=== PATIENT | female | born 1955 | race Caucasian/White ===

== ENCOUNTER → 2017-12-14 13:28 | Outpatient (CLI) | payer BC, SELFPAY ==
[2017-12-14 15:24] LABS: Absolute Lymphocyte Count 1.65 X10^3/ul (0.83-4.51); Basophil# 0.06 X10^3/uL; Basophil% 0.9 % (0-1); Eosinophil# 0.12 X10^3/uL; Eosinophils% 1.9 % (0-5); Hematocrit 40.9 % (37-47); Hemoglobin 12.8 g/dl (12.0-15.0); Lymphocyte # 1.65 X10^3/ul (4.0); Mean Corp Hgb Conc 31.3 g/gl (32-36); Mean Corpuscular Hgb 28.3 pg (27.0-32.0); Mean Corpuscular Volume 90.3 fL (81-99); Mean Platelet Vol. 10.2 fl (6.2-12.0); Monocyte% 7.9 % (0-10); Neutrophil # 4.01 X10^3/uL (2.7-7.7); Neutrophil % 63.1 % (47-70); Platelet Count 329 K/mm3 (150-450); RBC Distribution Width CV 13.2 % (11.6-14.6); RBC Distribution Width SD 43.5 fl (35.1-43.9); Red Blood Count 4.53 M/mm3 (4.2-5.4); White Blood Count 6.4 K/mm3 (4.4-11.0)
[2017-12-14 15:25] LABS: POSITIVE COUNT NO; POSITIVE DIFFERENTIAL NO; POSITIVE MORPHOLOGY NO
[2017-12-14 15:30] LABS: Anion Gap 6 (5-15); BUN 11 mg/dL (7-18); BUN/Creat Ratio 15.1 RATIO (10-20); Calcium,Total 9.1 mg/dL (8.5-10.1); Chloride 101 mmol/L (98-107); Creatinine, Serum 0.73 mg/dL (0.55-1.02); EST Glomerular Filtration Rate 86 mL/min (>60); Est Glom Filt Rate - Afr Amer 105 mL/min (>60); Glucose 87 mg/dL (74-106); Potassium 4.1 mmol/L (3.5-5.1); Sodium Level 138 mmol/L (136-145)
== END ==
PROVIDERS: Family Provider Family Medicine Geriatric Medicine; PCP Family Medicine Geriatric Medicine; Visit Provider Family Medicine Geriatric Medicine
DX: R53.83 Other fatigue (principal)
CPT/HCPCS: 36415; 80048; 85025

== ENCOUNTER → 2017-12-15 12:32 | Outpatient (CLI) | payer BC, SELFPAY ==
[2017-12-15 13:54] LABS: Cholesterol 243 mg/dL (200); High Density Lipoprotein 65 mg/dL; Thyroid Stim Hormone (TSH) 1.48 uIU/mL (0.358-3.74); Triglycerides 107 mg/dL; Uric Acid 5.1 mg/dL (2.6-6.0); Very Low Density Lipoprotein 21 mg/dL (5-40); Vitamin D,25 Hydroxy 60.2 ng/mL (29.95-100.01)
[2017-12-16 08:59] LABS: Hep C Antibodies <0.1 s/co ratio (0.0-0.9)
== END ==
PROVIDERS: Family Provider Family Medicine Geriatric Medicine; PCP Family Medicine Geriatric Medicine; Visit Provider Family Medicine Geriatric Medicine
DX: Z13.89 Encounter for screening for other disorder (principal); E55.9 Vitamin D deficiency, unspecified; R53.83 Other fatigue; M10.9 Gout, unspecified
CPT/HCPCS: 36415; 80061; 82306; 84443; 84550; 86803

== ENCOUNTER → 2018-01-18 13:58 | Outpatient (CLI) | payer BC, SELFPAY ==
--- NOTE | 2018-01-18 14:00 | RAD_ITS ---
STUDY: X-RAY - LUMBAR SPINE REASON FOR EXAM: Female, 62 years old. Low back pain TECHNIQUE: 3 view(s) of the lumbar spine were obtained. COMPARISON: 06/17/2014 FINDINGS: Normal lumbar lordosis. There is no substantial scoliosis. Grade 1 anterolisthesis of L5 on S1 with probable chronic pars defects. There is multilevel endplate spondylosis of the lumbar vertebrae. There is multi-level degenerative disc disease with multi-level disc space narrowing. There is no demonstrated fracture. The soft tissue structures are unremarkable. RAD/Lumbar Spine 2 or 3 Views IMPRESSION: Degenerative changes of the spine, as detailed above. Electronically Signed: Jacinto Hong DO at 13:45 EDT Tel , Service support ,
[2018-01-18 15:39] LABS: Anion Gap 8 (5-15); BUN 13 mg/dL (7-18); BUN/Creat Ratio 15.3 RATIO (10-20); Calcium,Total 9.1 mg/dL (8.5-10.1); Chloride 101 mmol/L (98-107); Creatinine, Serum 0.85 mg/dL (0.55-1.02); EST Glomerular Filtration Rate 72 mL/min (>60); Est Glom Filt Rate - Afr Amer 87 mL/min (>60); Glucose 89 mg/dL (74-106); Potassium 3.8 mmol/L (3.5-5.1); Sodium Level 138 mmol/L (136-145)
== END ==
PROVIDERS: Family Provider Family Medicine Geriatric Medicine; PCP Family Medicine Geriatric Medicine; Visit Provider Family Medicine Geriatric Medicine
DX: M54.5 Low back pain (principal); E87.6 Hypokalemia
CPT/HCPCS: 36415; 72100; 80048

== ENCOUNTER → 2018-02-05 16:51 | Outpatient (CLI) | payer BC, SELFPAY | PROVIDERS: Family Provider Family Medicine Geriatric Medicine; PCP Family Medicine Geriatric Medicine; Visit Provider Chiropractor | DX: M43.10 Spondylolisthesis, site unspecified (principal); M51.36 Other intervertebral disc degeneration, lumbar region | CPT/HCPCS: 72052; 72110 ==

== ENCOUNTER → 2018-02-09 07:14 | Outpatient (CLI) | payer BC, SELFPAY ==
--- NOTE | 2018-02-09 07:45 | MRI_ITS ---
STUDY: MRI LUMBAR SPINE WITHOUT CONTRAST REASON FOR EXAM: Female, 62 years old. Low back pain with bilateral leg weakness since beginning of January. TECHNIQUE: Standardized fat and water weighted pulse sequences were obtained in the sagittal and axial planes. COMPARISON: Radiographs of the lumbar spine dated January 18, 2018. FINDINGS: T11-T12: There is narrowing of the disc. There may be a broad central disc protrusion. There is thickening of ligamentum flavum which appears to contribute to moderate acquired canal stenosis and possible impingement of the spinal cord at this level. Neural foramina appear to be patent. T12-L1: There is narrowing of the disc. The neural foramina are patent. There is no significant central acquired canal stenosis. Normal lumbar lordosis. There is no substantial scoliosis. Normal conus medullaris that terminates at the L1-2 level. L1-2: Normal endplates. Normal disc height, signal and morphology. Normal bilateral facet joints. Normal central canal and bilateral lateral recesses. Normal bilateral intervertebral neural foramina. There is abnormal T1 and T2 hyperintensity within the L1 and L2 vertebral bodies that suppresses on the STIR images suggesting this probably represents some fatty infiltration of the marrow. L2-3: There is mild annular disk bulge and osteophyte complex. There is mild degenerative arthropathy of the facet joints. Bilateral neuroforamina are narrowed without MR evidence for nerve impingement. There is no significant central canal stenosis. L3-4: There is mild annular disk bulge and osteophyte complex. There is mild degenerative arthropathy of the facet joints. Bilateral neuroforamina are narrowed without MR evidence for nerve impingement. There is no significant central canal stenosis. L4-5: There is mild annular disk bulge and osteophyte complex. There is mild degenerative arthropathy of the facet joints. Bilateral neuroforamina are narrowed without MR evidence for nerve impingement. There is no significant central canal stenosis. L5-S1: There is a grade 1 anterolisthesis at this level with uncovering of the disc. There are severe degenerative arthropathy of facet joints. Neural foramina are bilaterally narrowed with potential impingement of the right L5 nerve root at the neural foramen. There is mild central acquired canal stenosis. There is a increased signal within the sacrum that probably represents fatty infiltration of the marrow.. There is abnormal T1 and T2 hyperintensity within the L2, L3, L4 and L5 vertebral bodies that suppresses with fat suppression suggesting fatty infiltration of the marrow. Normal visualized paraspinous soft tissue structures. MRI/Spine Lumbar (Routine) IMPRESSION: 1. Multilevel degenerative disc disease and degenerative arthropathy of the lumbar spine with acquired canal stenosis, neural foraminal narrowing and potential nerve impingement, as described. 2. Multiple foci of abnormal signal within the vertebral bodies that probably represents fatty infiltration of the marrow. 3. Grade 1 anterolisthesis at L5-S1. Electronically Signed: Kenisha Mann MD at 8:31 EDT , Service support ,
== END ==
PROVIDERS: Family Provider Family Medicine Geriatric Medicine; PCP Family Medicine Geriatric Medicine; Visit Provider Family Medicine Geriatric Medicine
DX: M62.81 Muscle weakness (generalized) (principal)
CPT/HCPCS: 72148

== ENCOUNTER → 2018-04-03 09:55 | Outpatient (CLI) | payer BC, SELFPAY | LOC: LAB 09:57 → PSN 10:09 | PROVIDERS: Family Provider Family Medicine Geriatric Medicine; PCP Family Medicine Geriatric Medicine; Visit Provider Family Medicine Geriatric Medicine | DX: R68.83 Chills (without fever) (principal) | CPT/HCPCS: 87633 ==

== ENCOUNTER → 2018-05-04 14:27 | Outpatient (CLI) | payer BC, SELFPAY ==
--- NOTE | 2018-05-04 14:32 | RAD_ITS ---
STUDY: X-RAY - PELVIS REASON FOR EXAM: Female, 63 years old. Bilateral hip pain. No history of injury. TECHNIQUE: One view of the pelvis was obtained. COMPARISON: None. FINDINGS: There is a non-specific bowel gas pattern. There are multiple calcified phleboliths. Normal bilateral iliac wings, sacroiliac joints and visualized sacrum. Normal visualized bilateral superior and inferior pubic rami. Normal pubic symphysis. Normal ischial tuberosities. Normal visualized right femoral head. Normal right acetabulum. Normal right hip joint. Normal visualized left femoral head. Normal left acetabulum. Normal left hip joint. RAD/Pelvis 1 or 2 Views IMPRESSION: Unremarkable hip joint. Electronically Signed: Antonino Oreilly MD at 11:48 EDT Tel , Service support ,
[2018-05-04 15:43] LABS: Absolute Lymphocyte Count 1.73 X10^3/ul (0.83-4.51); Absolute Neutrophil Count 8.4 X10^3/uL (2.0-7.7); Basophil# 0.05 X10^3/uL; Basophil% 0.5 % (0-1); Eosinophil# 0.02 X10^3/uL; Eosinophils% 0.2 % (0-5); Hematocrit 40.1 % (37-47); Hemoglobin 12.8 g/dl (12.0-15.0); Lymphocyte # 1.73 X10^3/ul (4.0); Lymphocyte % 15.9 % (19-41); Mean Corp Hgb Conc 31.9 g/gl (32-36); Mean Corpuscular Volume 90.7 fL (81-99); Mean Platelet Vol. 9.9 fl (6.2-12.0); Monocyte# 0.75 X10^3/uL; Monocyte% 6.9 % (0-10); Neutrophil # 8.35 X10^3/uL (2.7-7.7); Neutrophil % 76.4 % (47-70); Platelet Count 374 K/mm3 (150-450); RBC Distribution Width CV 14.8 % (11.6-14.6); RBC Distribution Width SD 48.2 fl (35.1-43.9); Red Blood Count 4.42 M/mm3 (4.2-5.4); White Blood Count 10.9 K/mm3 (4.4-11.0)
[2018-05-04 15:46] LABS: POSITIVE COUNT NO; POSITIVE DIFFERENTIAL NO; POSITIVE MORPHOLOGY NO
[2018-05-04 16:08] LABS: ALB/GLOB Ratio 1.2 RATIO (0.9-2.4); AST(SGOT) 22 U/L (15-37); Alanine Aminotransfer ALT/SGPT 24 U/L (13-56); Albumin, Serum 3.8 g/dL (3.2-5.0); Alkaline Phosphatase 70 U/L (45-117); Anion Gap 7 (5-15); BUN 10 mg/dL (7-18); BUN/Creat Ratio 11.7 RATIO (10-20); CRP < 2.90 mg/L (0.0-3.0); Calcium,Total 8.6 mg/dL (8.5-10.1); Chloride 103 mmol/L (98-107); Creatinine, Serum 0.86 mg/dL (0.55-1.02); EST Glomerular Filtration Rate 71 mL/min (>60); Est Glom Filt Rate - Afr Amer 86 mL/min (>60); Globulin 3.1 g/dL (2.2-4.2); Glucose 83 mg/dL (74-106); Potassium 3.6 mmol/L (3.5-5.1); Protein, Total 6.9 g/dL (6.4-8.2); Rheumatoid Factor < 10.0 IU/mL (<15); Sodium Level 138 mmol/L (136-145)
[2018-05-04 17:05] LABS: Erythrocyte Sedimentation Rate 10 mm/hr (0-30)
[2018-05-10 17:07] LABS: CCP IgG Antibodies 6 units (0-19); HEPATITIS B SURFACE AG Negative (Negative); Hep B Surface Antibodies Non Reactive (.); Hep C Antibodies 0.1 s/co ratio (0.0-0.9)
[2018-05-17 17:12] LABS: HLA B27 Negative (.)
== END ==
PROVIDERS: Family Provider Family Medicine Geriatric Medicine; PCP Family Medicine Geriatric Medicine; Visit Provider Internal Medicine Rheumatology
DX: M06.4 Inflammatory polyarthropathy (principal); M15.9 Polyosteoarthritis, unspecified; M51.37 Other intervertebral disc degeneration, lumbosacral region; M48.061 Spinal stenosis, lumbar region without neurogenic claudication; M21.40 Flat foot [pes planus] (acquired), unspecified foot; G25.81 Restless legs syndrome; K22.70 Barrett's esophagus without dysplasia; F32.89 Other specified depressive episodes; I10 Essential (primary) hypertension; E03.9 Hypothyroidism, unspecified
CPT/HCPCS: 36415; 72170; 80053; 81374; 85025; 85652; 86140; 86200; 86431; 86706; 86803; 87340

== ENCOUNTER → 2018-06-06 13:55 | Outpatient (CLI) | payer BC, SELFPAY ==
[2018-06-06 15:07] LABS: Amphetamine Urine VISTA NEGATIVE (<1000 ng/mL); Barbiturate Urine VISTA NEGATIVE (< 200 ng/mL); Benzodiazepine Urine VISTA NEGATIVE (< 200 ng/mL); Cocaine Urine VISTA NEGATIVE (< 300 ng/mL); Ecstacy Urine VISTA NEGATIVE (< 500 ng/mL); Methadone Urine VISTA NEGATIVE (< 300 ng/mL); PCP Urine VISTA NEGATIVE (< 25 ng/mL); THC Urine VISTA NEGATIVE (< 50 ng/mL); Vista UDS pH Range 5
== END ==
PROVIDERS: Family Provider Family Medicine Geriatric Medicine; PCP Family Medicine Geriatric Medicine; Visit Provider Anesthesiology Pain Medicine
DX: F11.20 Opioid dependence, uncomplicated (principal)
CPT/HCPCS: 80307

== ENCOUNTER → 2018-06-22 09:02 | Outpatient (CLI) | payer BC, SELFPAY ==
[2018-06-22 12:11] LABS: Absolute Lymphocyte Count 1.66 X10^3/ul (0.83-4.51); Absolute Neutrophil Count 4.1 X10^3/uL (2.0-7.7); Basophil# 0.06 X10^3/uL; Basophil% 0.9 % (0-1); Eosinophil# 0.05 X10^3/uL; Eosinophils% 0.8 % (0-5); Hematocrit 40.9 % (37-47); Lymphocyte # 1.66 X10^3/ul (4.0); Lymphocyte % 25.3 % (19-41); Mean Corp Hgb Conc 31.8 g/gl (32-36); Mean Corpuscular Hgb 29.3 pg (27.0-32.0); Mean Corpuscular Volume 92.1 fL (81-99); Mean Platelet Vol. 9.5 fl (6.2-12.0); Monocyte# 0.71 X10^3/uL; Monocyte% 10.8 % (0-10); Neutrophil # 4.06 X10^3/uL (2.7-7.7); Platelet Count 355 K/mm3 (150-450); RBC Distribution Width CV 13.8 % (11.6-14.6); RBC Distribution Width SD 45.9 fl (35.1-43.9); Red Blood Count 4.44 M/mm3 (4.2-5.4); White Blood Count 6.6 K/mm3 (4.4-11.0)
[2018-06-22 12:16] LABS: POSITIVE COUNT NO; POSITIVE DIFFERENTIAL NO; POSITIVE MORPHOLOGY NO
[2018-06-22 12:46] LABS: Vitamin D,25 Hydroxy 28.9 ng/mL (29.95-100.01)
[2018-06-22 12:51] LABS: ALB/GLOB Ratio 1.1 RATIO (0.9-2.4); AST(SGOT) 20 U/L (15-37); Alanine Aminotransfer ALT/SGPT 29 U/L (13-56); Albumin, Serum 3.6 g/dL (3.2-5.0); Alkaline Phosphatase 68 U/L (45-117); Anion Gap 9 (5-15); BUN 12 mg/dL (7-18); BUN/Creat Ratio 14.8 RATIO (10-20); Calcium,Total 8.8 mg/dL (8.5-10.1); Chloride 102 mmol/L (98-107); Creatinine, Serum 0.81 mg/dL (0.55-1.02); EST Glomerular Filtration Rate 76 mL/min (>60); Est Glom Filt Rate - Afr Amer 92 mL/min (>60); Globulin 3.4 g/dL (2.2-4.2); Glucose 89 mg/dL (74-106); Potassium 3.9 mmol/L (3.5-5.1); Sodium Level 139 mmol/L (136-145); Thyroid Stim Hormone (TSH) 1.82 uIU/mL (0.358-3.74); Uric Acid 5.5 mg/dL (2.6-6.0)
== END ==
PROVIDERS: Family Provider Family Medicine Geriatric Medicine; PCP Family Medicine Geriatric Medicine; Visit Provider Family Medicine Geriatric Medicine
DX: M10.9 Gout, unspecified (principal); R53.83 Other fatigue; E55.9 Vitamin D deficiency, unspecified
CPT/HCPCS: 36415; 80053; 82306; 84443; 84550; 85025

== ENCOUNTER → 2018-07-20 15:04 | Outpatient (CLI) | payer BC, SELFPAY ==
[2018-07-20 17:38] LABS: Absolute Lymphocyte Count 1.77 X10^3/ul (0.83-4.51); Absolute Neutrophil Count 7.4 X10^3/uL (2.0-7.7); Basophil# 0.06 X10^3/uL; Basophil% 0.6 % (0-1); Eosinophil# 0.04 X10^3/uL; Eosinophils% 0.4 % (0-5); Hematocrit 41.7 % (37-47); Hemoglobin 13.4 g/dl (12.0-15.0); Lymphocyte # 1.77 X10^3/ul (4.0); Lymphocyte % 17.8 % (19-41); Mean Corp Hgb Conc 32.1 g/gl (32-36); Mean Corpuscular Hgb 29.6 pg (27.0-32.0); Mean Corpuscular Volume 92.1 fL (81-99); Mean Platelet Vol. 10.6 fl (6.2-12.0); Monocyte# 0.59 X10^3/uL; Monocyte% 5.9 % (0-10); Neutrophil # 7.44 X10^3/uL (2.7-7.7); Neutrophil % 75.1 % (47-70); Platelet Count 353 K/mm3 (150-450); RBC Distribution Width CV 14.5 % (11.6-14.6); RBC Distribution Width SD 47.3 fl (35.1-43.9); Red Blood Count 4.53 M/mm3 (4.2-5.4); White Blood Count 9.9 K/mm3 (4.4-11.0)
[2018-07-20 17:48] LABS: POSITIVE COUNT NO; POSITIVE DIFFERENTIAL NO; POSITIVE MORPHOLOGY NO
[2018-07-20 17:55] LABS: ALB/GLOB Ratio 1.1 RATIO (0.9-2.4); AST(SGOT) 16 U/L (15-37); Alanine Aminotransfer ALT/SGPT 28 U/L (13-56); Albumin, Serum 3.9 g/dL (3.2-5.0); Alkaline Phosphatase 71 U/L (45-117); Anion Gap 10 (5-15); BUN 15 mg/dL (7-18); BUN/Creat Ratio 17.8 RATIO (10-20); Calcium,Total 8.8 mg/dL (8.5-10.1); Chloride 103 mmol/L (98-107); Creatinine, Serum 0.84 mg/dL (0.55-1.02); EST Glomerular Filtration Rate 73 mL/min (>60); Est Glom Filt Rate - Afr Amer 88 mL/min (>60); Globulin 3.4 g/dL (2.2-4.2); Glucose 94 mg/dL (74-106); Potassium 3.5 mmol/L (3.5-5.1); Protein, Total 7.3 g/dL (6.4-8.2); Sodium Level 141 mmol/L (136-145)
== END ==
PROVIDERS: Family Provider Family Medicine Geriatric Medicine; PCP Family Medicine Geriatric Medicine; Referring Provider Internal Medicine Rheumatology; Visit Provider Internal Medicine Rheumatology
DX: M06.4 Inflammatory polyarthropathy (principal); M15.9 Polyosteoarthritis, unspecified; M51.37 Other intervertebral disc degeneration, lumbosacral region; M48.061 Spinal stenosis, lumbar region without neurogenic claudication; M21.40 Flat foot [pes planus] (acquired), unspecified foot; I10 Essential (primary) hypertension; E03.9 Hypothyroidism, unspecified; G25.81 Restless legs syndrome; K22.70 Barrett's esophagus without dysplasia; F32.89 Other specified depressive episodes
CPT/HCPCS: 36415; 80053; 85025

== ENCOUNTER → 2018-10-10 14:11 | Outpatient (CLI) | payer BC, SELFPAY | PROVIDERS: Family Provider Family Medicine Geriatric Medicine; PCP Family Medicine Geriatric Medicine; Referring Provider Family Medicine Geriatric Medicine; Visit Provider Family Medicine Geriatric Medicine | DX: R68.83 Chills (without fever) (principal) | CPT/HCPCS: 87633 ==

== ENCOUNTER → 2018-10-30 12:33 | Outpatient (CLI) | payer BC, SELFPAY ==
[2018-04-05 17:23] VITALS: BMI 30.2
[2018-10-30 14:12] LABS: Absolute Lymphocyte Count 1.87 X10^3/ul (0.83-4.51); Absolute Neutrophil Count 5.4 X10^3/uL (2.0-7.7); Basophil# 0.05 X10^3/uL; Basophil% 0.6 % (0-1); Eosinophil# 0.09 X10^3/uL; Eosinophils% 1.1 % (0-5); Hematocrit 41.4 % (37-47); Hemoglobin 12.8 g/dl (12.0-15.0); Lymphocyte # 1.87 X10^3/ul (4.0); Lymphocyte % 23.1 % (19-41); Mean Corp Hgb Conc 30.9 g/gl (32-36); Mean Corpuscular Volume 93.9 fL (81-99); Mean Platelet Vol. 10.4 fl (6.2-12.0); Monocyte# 0.68 X10^3/uL; Monocyte% 8.4 % (0-10); Neutrophil # 5.37 X10^3/uL (2.7-7.7); Neutrophil % 66.6 % (47-70); Platelet Count 366 K/mm3 (150-450); RBC Distribution Width CV 14.5 % (11.6-14.6); RBC Distribution Width SD 49.3 fl (35.1-43.9); Red Blood Count 4.41 M/mm3 (4.2-5.4); White Blood Count 8.1 K/mm3 (4.4-11.0)
[2018-10-30 14:13] LABS: POSITIVE COUNT NO; POSITIVE DIFFERENTIAL NO; POSITIVE MORPHOLOGY NO
[2018-10-30 14:30] LABS: ALB/GLOB Ratio 1.3 RATIO (0.9-2.4); AST(SGOT) 16 U/L (15-37); Alanine Aminotransfer ALT/SGPT 24 U/L (13-56); Albumin, Serum 3.8 g/dL (3.2-5.0); Alkaline Phosphatase 69 U/L (45-117); Anion Gap 8 (5-15); BUN 9 mg/dL (7-18); BUN/Creat Ratio 12.3 RATIO (10-20); Calcium,Total 8.7 mg/dL (8.5-10.1); Chloride 105 mmol/L (98-107); Creatinine, Serum 0.73 mg/dL (0.55-1.02); EST Glomerular Filtration Rate 86 mL/min (>60); Est Glom Filt Rate - Afr Amer 104 mL/min (>60); Glucose 81 mg/dL (74-106); Potassium 3.7 mmol/L (3.5-5.1); Protein, Total 6.8 g/dL (6.4-8.2); Sodium Level 141 mmol/L (136-145)
== END ==
PROVIDERS: Family Provider Family Medicine Geriatric Medicine; PCP Family Medicine Geriatric Medicine; Referring Provider Internal Medicine Rheumatology; Visit Provider Internal Medicine Rheumatology
DX: M06.4 Inflammatory polyarthropathy (principal); M15.9 Polyosteoarthritis, unspecified; M51.37 Other intervertebral disc degeneration, lumbosacral region; M48.061 Spinal stenosis, lumbar region without neurogenic claudication; Z79.899 Other long term (current) drug therapy
CPT/HCPCS: 36415; 80053; 85025

== ENCOUNTER → 2018-11-01 06:10 | Outpatient (CLI) | payer BC, SELFPAY ==
--- NOTE | 2018-11-01 10:12 | STRESSREP_ITS ---
Stress Test Report Date: 11/01/2018 Procedure: Pharmacologic stress nuclear imaging study Indications: Abnormal ECG; preoperative cardiovascular evaluation Consent: Per the patient Procedure: The patient underwent pharmacologic (Regadenoson ) evaluation with a peak heart rate of 107 beats per minute (67% predicted maximal heart rate) with a peak blood pressure of 144/92 mmHg. The baseline ECG demonstrated normal sinus rhythm. The peak pharmacological ECG demonstrated no obvious ECG changes. There were no cardiac dysrhythmias pretest, during pharmacologic infusion, or recovery. There was no report of chest discomfort during pharmacologic infusion or recovery. The examination was discontinued secondary to completion of protocol. Impression: 1. Pharmacologic (regadenoson pending evaluation 2. Peak pharmacologic ECG with no obvious ECG changes 3. Nuclear images pending Myocardial perfusion imaging study: Technique: The patient was injected with 11.9 mci of technetium-99m Cardiolite and subsequent stress SPECT Cardiolite nuclear imaging was obtained in the horizontal long, vertical long, and short axis views. The patient underwent pha rmacologic (regadenoson) evaluation with a peak heart rate of 107 beats per minute (67% predicted maximal heart rate) with a peak blood pressure of 144/92 mmHg. The patient was injected with 33.6 mci of technetium-99m Cardiolite and subsequently stress SPECT Cardiolite nuclear imaging was obtained in the horizontal long, vertical long, and short axis views. A gated Cardiolite study at peak stress was obtained. Interpretation: Rest and stress SPECT Cardiolite nuclear imaging status post realignment and normalization (no attenuation correction performed) demonstrated the appearance of relative uniform tracer uptake and myocardial perfusion appearing within normal limits. There is end systolic thickening and brightening. The gated Cardiolite study demonstrates myocardial thickening and inward wall motion. The reported LVEF is 80%. Impression: 1. Rest and stress SPECT Cardiolite nuclear imaging demonstrates relative uniform tracer uptake and myocardial perfusion appearing within normal limits. 2. The gated Cardiolite study reports an LVEF of 80%. This note was generated using a voice recognition system and there may be incorrect words, spelling or punctuation that were not noted when reviewing the office note prior to saving.
--- OUTSIDE RECORDS SUMMARY | 2019-01-05 18:24 | XMS RPT_ITS ---
:1955 Author Organization [facility] Address [address] [place], [place] [address], [place] [address] Phone Care Team Providers Name Role Phone Beth MARCELINO, Leonor Jen Reason for Visit Reason For Visit Description Start Date New - 1st visit with practice Preliminary reason for visit data, not yet signed by the author as of lower back pain Preliminary reason for visit data, not yet signed by the author as of Chief Complaint Chief Complaint Description Start Date lower back pain Preliminary chief complaint data, not yet signed by the author as of Instructions Instruction Description Start Date Patient advised to follow-up with Primary Care Physician for BMI management. Plan of Care Type Date Detail Appointment 12:00 PM Leonor MARCELINO, [address] [facility], [address], [place], [address], Appointment 01:45 [place], [address] [place] [address], [address], [place], [address], Appointment 01:00 PM Leonor MARCELINO, [address] [place] [address], [address], [place], [address], Appointment 10:30 AM Gerry Mann DO, [address] [facility], [place], [address], Pending order XR LUMBAR 4VWS FLEX/EX Pending order MRI thoracic without contrast Pending order DXA - standard order of spine and hip; axial skeleton 1 + views Patient education \cps-sql1\CPS_PtEducation\[facility] _FALL_PREVENTION.pdf Medications Medication Instructions Start Stop Generic Name [facility] Provider Date Date VALIUM 5 MG TABS Take 1 tablet DIAZEPAM 73539925038 Leonor by mouth [facility] hour prior to [employer] PROFESSIONAL-NEWS OPERATIONS 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 MRI MELOXICAM 7.5 MG One tablet MELOXICAM 90172370366 Leonor TABS daily / [facility] [employer] PROFESSIONAL-NEWS OPERATIONS MANAGER HYDROCODONE-ACETA One tablet HYDROCODONE-ACETA 77263822449 Leonor MINOPHEN 5-325 MG three times / MINOPHEN [facility] TABS daily [employer]ENTER PROFESSIONAL-NEWS OPERATIONS MANAGER PREDNISONE 10 MG As needed PREDNISONE [id number] Leonor TABS /03 [facility] [employer] PROFESSIONAL-NEWS OPERATIONS MANAGER FOLIC ACID 1 MG Two tablets FOLIC ACID 40520983949 Leonor TABS daily / [facility] [employer] PROFESSIONAL[employer]NEWS OPERATIONS MANAGER METHOTREXATE Four tablets METHOTREXATE 46485567142 Leonor SODIUM 2.5 MG every SODIUM [facility] TABS Monday [employer] PROFESSIONAL-NEWS OPERATIONS MANAGER weekly DOXEPIN HCL 25 MG As needed DOXEPIN HCL 15030983261 Leonor CAPS / [facility] [employer] PROFESSIONAL-NEWS OPERATIONS MANAGER LINZESS 145 MCG Once daily LINACLOTIDE 21791625591 Leonor CAPS /03 [facility] [employer] PROFESSIONAL-NEWS OPERATIONS MANAGER POTASSIUM Once daily POTASSIUM 30964601688 Leonor CHLORIDE ER CHLORIDE [facility] MEQ CR-TABS CALL CENTER PROFESSIONAL-NEWS OPERATIONS MANAGER ROPINIROLE HCL 2 One tablet at ROPINIROLE HCL 31280190288 Leonor MG TABS bedtime daily / [facility] [employer] PROFESSIONAL-NEWS OPERATIONS MANAGER ESTRADIOL 1 MG 1/2 tablet ESTRADIOL 05645842042 Leonor TABS once daily / [facility] [employer] PROFESSIONAL-NEWS OPERATIONS MANAGER CELEXA 40 MG TABS One tablet CITALOPRAM 46533337413 Leonor daily / HYDROBROMIDE [facility] [employer] CENTER PROFESSIONAL-NEWS OPERATIONS MANAGER LEVO-T TABS 0.025 One LEVOTHYROXINE 46772319103 Leonor tablet daily /03 SODIUM TABS [facility] [employer] PROFESSIONAL-NEWS OPERATIONS MANAGER LISINOPRIL-HYDROC One tablet LISINOPRIL-HYDROC 28653957077 Leonor HLOROTHIAZIDE daily HLOROTHIAZIDE [facility] 20-12.5 MG TABS CALL [employer] PROFESSIONAL-NEWS OPERATIONS MANAGER DEXILANT 60 MG One capsule DEXLANSOPRAZOLE 44909894752 Leonor CPDR daily [facility] [employer] CENTER PROFESSIONAL-NEWS OPERATIONS MANAGER CELEBREX 200 MG One capsule CELECOXIB 46818682850 Leonor CAPS daily [facility] [employer] CENTER PROFESSIONAL-NEWS OPERATIONS MANAGER GABAPENTIN 300 MG One capsule GABAPENTIN 10803716968 Leonor CAPS daily [facility] needed CALL CENTER PROFESSIONAL-NEWS OPERATIONS MANAGER CYCLOBENZAPRINE One tablet CYCLOBENZAPRINE 98352404084 Leonor HCL 10 MG TABS daily HCL [facility] needed [employer] PROFESSIONAL-NEWS OPERATIONS MANAGER Conditions or Problems Problem Name Problem Onset Status Entry Provider Comment Standard Annotate Code Date Date Description Disorder of 83002183 Active Leonor Disorder of bone bone density (SNOMED 10/18 10/[address] [facility]) [employer] PROFESSIONAL-NEWS OPERATIONS MANAGER structure, unspecified 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 Leonor 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/18 10/18 [facility] nucleus pulposus pulposus, CT) [employer] PROFESSIONAL-NEWS OPERATIONS MANAGER thoracic Lumbar 34645371 Active Leonor Spinal stenosis stenosis with (SNOMED 10/18 10/18 [facility] of lumbar region neurogenic CT) [employer] PROFESSIONAL-NEWS OPERATIONS MANAGER claudication Spondylolisth 134469104 Active Leonor Spondylolisthesi esis at L5-S1 (SNOMED 10/18 10/18 [facility] s L5/S1 level level CT) CALL [employer] PROFESSIONAL-NEWS OPERATIONS MANAGER Allergies, Adverse Reactions, Alerts Observed no known allergies at Social History Concept Description Observation Name Observation Value Units Start Date Alcohol use ETOH USE Yes Preliminary social history data, not yet signed by the author as of Details of drug DRUG USE No misuse behavior Preliminary social history data, not yet signed by the author as of 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 Preliminary social history data, not yet signed by the author as of Never smoker SMOK STATUS never smoker Preliminary social history data, not yet signed by the author as of Vital Signs Date Name Value Unit Description BMI (Body Mass 34.50 kg/m2 Body Mass Index Index) [Ratio] Preliminary vital sign data, not yet signed by the author as of BP Diastolic 89 mm[Hg] blood pressure, diastolic Preliminary vital sign data, not yet signed by the author as of BP Systolic 133 mm[Hg] blood pressure, systolic Preliminary vital sign data, not yet signed by the author as of Heart Rate 83 /min pulse rate E&M Preliminary vital sign data, not yet signed by the author as of Height 60 [in_us] height E&M Preliminary vital sign data, not yet signed by the author as of Height 152 cm height in centimeters E&M Preliminary vital sign data, not yet signed by the author as of Weight Measured 176 [lb_av] weight E&M Preliminary vital sign data, not yet signed by the author as of Weight Measured 80 kg weight in kilograms E&M Preliminary vital sign data, not yet signed by the author as of Results Date Name Value Unit Range Flag Description Clinical Summary: Scanned History Summary DEP EXERCISE No data entered by patient, exercise history DEP DRUG USE No data entered by patient, drug (of abuse) use 3+ETOHDAILY less than 1 drink per day consumes three or more drinks of alcohol (beer, wine, liquor) daily or almost daily ETOHPERFRM BeerWine adl form etoh alcohol performance DEP ETOH USE Yes data entered by patient, alcohol (ethanol or ETOH) use DEP SH CSMO never smoker data entered by patient, social history, current smoker [place] [address] Floor housing unit size (asthma environmental history, housing) (from single family to don't know) [facility] Housing Type: apartment, house, long term, trailer, none #DEP CHLDRN No Number of dependent children DEP SH MAST data entered by patient, social history, marital status 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 data entered by patient, Employer Name DEP DAD [facility] [employer] ArthritisHigh blood data entered by pressureStroke/TIA patient, father's medical history FATHER A/D father of patient is alive or DEP MOM PMH ArthritisVascular data entered by diseaseCOPSaint [facility] blood pressure patient, mother's medical history MOTHER A/D mother of patient is alive or DEP SURGERY Foot Data entered by surgeryTonsillectomyCataract patient, history surgeryGallbladder of past surgeryHysterectomyKnee surgery surgeries other DEP [facility] DepressionGERDHigh data entered by cholesterolArthritis patient, past medical history Office Visit: New - 1st visit with practice, Rm: 30 MEDS REVIEW Done Documentation of current medications (procedure) Preliminary observation data, not yet signed by the author as of XRAY HX of the Lumbar xray history Spine on 01/18/2018 at [facility] Preliminary observation data, not yet signed by the author as of Preliminary observation data, not yet signed by the author as of SMOK STATUS never smoker Tobacco smoking status NHIS Preliminary observation data, not yet signed by the author as of MRI HX of the Lumbar MRI (magnetic Spine on resonance 02/09/2018 at imaging) history [facility] Preliminary observation data, not yet signed by the author as of Clinical Summary: HMSPatientID OOP account number Procedures Code Procedure Name Date Entry Date L0648 EXOS FORM 631 (EXOS) G8509 Pain assessment documented as positive - no follow-up/reason not given G8427 Current medications documented 1036F Tobacco screening was negative - non user G8417 BMI documented as above normal parameters - follow-up documented G8783 Blood pressure within normal parameters - no follow-up required [id number] Patient Encounter Medications Administered No information available. Immunizations No information available. Advance Directives There may be information available, but it has not been provided by the sender. Assessments There may be information available, but it has not been provided by the sender. Review of Systems There may be information available, but it has not been provided by the sender. Family History There may be information available, but it has not been provided by the sender. History of Past Illness There may be information available, but it has not been provided by the sender. History of Present Illness There may be information available, but it has not been provided by the sender.
--- OUTSIDE RECORDS SUMMARY | 2019-01-05 18:25 | XMS RPT_ITS ---
:1955 Author Organization OHIP Support Name Relationship Address Phone [employer] Unavailable [address] + [place] [address] [place] [address] GERSON BLAKE Unavailable [address] + [place] [address] [employer] Unavailable [address] + [place] [address] GERSON BLAKE Unavailable [address] + [place] [address] [employer] Unavailable [address] + [place] [address] GERSON BLAKE Unavailable [address] + [place] [address] Gerson Blake Unavailable Unavailable + [facility] Unavailable [address] + [place] [address] GERSON BLAKE Unavailable [address] + [place] [address] [employer] Unavailable [address] + [place] [address] GERSON BLAKE Unavailable [address] + [place] [address] [employer] Unavailable [address] + [place] [address] GERSON BLAKE Unavailable [address] + [place] [address] [employer] Unavailable [address] + [place] [address] GERSON BLAKE Unavailable [address] + [place] [address] [employer] Unavailable [address] + [place] [address] GERSON BLAKE Unavailable [address] + [place] [address] [employer] Unavailable [address] + [place] [address] GERSON BLAKE Unavailable [address] + [place] [address] [employer] Unavailable [address] + [place] [address] GERSON BLAKE Unavailable [address] + [place] [address] [employer] Unavailable [address] + [place] [address] GERSON BLAKE Unavailable [address] + [place] [address] [employer] Unavailable [address] + [place] [address] GERSON BLAKE Unavailable [address] + [place] [address] [employer] Unavailable [address] + [place] [address] GERSON BLAKE Unavailable [address] + [place] [address] [employer] Unavailable [address] + [place] [address] GERSON BLAKE Unavailable [address] + [place] [address] [employer] Unavailable [address] + [place] [address] GERSON BLAKE Unavailable [address] + [place] [address] [employer] Unavailable [address] + [place] [address] GERSON BLAKE Unavailable [address] + [place] [address] [employer] Unavailable [address] + [place] [address] GERSON BLAKE Unavailable [address] + [place] [address] [employer] Unavailable [address] + [place] [address] GERSON BLAKE Unavailable [address] + [place] [address] [employer] Unavailable [address] + [place] [address] GERSON BLAKE Unavailable [address] + [place] [address] [employer] Unavailable [address] + [place] [address] GERSON BLAKE Unavailable [address] + [place] [address] [employer] Unavailable [address] + [place] [address] GERSON BLAKE Unavailable [address] + [place] [address] [employer] Unavailable [address] + [place] [address] GERSON BLAKE Unavailable [address] + [place] [address] [employer] Unavailable [address] + [place] [address] GERSON BLAKE Unavailable [address] + [place] [address] [employer] Unavailable [address] + [place] [address] GERSON BLAKE Unavailable [address] + [place] [address] [employer] Unavailable [address] + [place] [address] GERSON BLAKE Unavailable [address] + [place] [address] [employer] Unavailable [address] + [place] [address] GERSON BLAKE Unavailable [address] + [place] [address] [employer] Unavailable [address] + [place] [address] GERSON BLAKE Unavailable [address] + [place] [address] [employer] Unavailable [address] + [place] [address] GERSON BLAKE Unavailable [address] + [place] [address] [employer] Unavailable [address] + [place] [address] GERSON BLAKE Unavailable [address] + [place] [address] [employer] Unavailable [address] + [place] [address] GERSON BLAKE Unavailable [address] + [place] [address] Care Team Providers Name Role Phone Marquis Solis Attending Unavailable PROVIDER, UNKNOWN Referring Unavailable LARS, DICK-CHI Primary Care Unavailable Lars, Dick Chi Attending Unavailable Lars, Dick Chi Referring Unavailable Lars, Dick Chi Primary Care Unavailable Vellanki, Sonia Attending Unavailable Vellanki, Sonia Referring Unavailable Lars, Dick Chi Primary Care Unavailable Lars, Dick Chi Attending Unavailable Lars, Dick Chi Primary Care Unavailable Lars, Dick Chi Attending Unavailable Lars, Dick Chi Primary Care Unavailable Lars, Dick Chi Attending Unavailable Lars, Dick Chi Primary Care Unavailable Lars, Dick Chi Attending Unavailable Lars, Dick Chi Referring Unavailable Lars, Dick Chi Primary Care Unavailable DossieLisa D.C. Attending Unavailable Lars, Dick Chi Referring Unavailable Lars, Dick Chi Primary Care Unavailable DossieLisa D.C. Attending Unavailable Lars, Dick Chi Primary Care Unavailable DossieLisa D.C. Attending Unavailable Lars, Dick Chi Referring Unavailable Lars, Dick Chi Primary Care Unavailable DossieLisa D.C. Attending Unavailable Lars, Dick Chi Referring Unavailable Lars, Dick Chi Primary Care Unavailable Lars, Dick Chi Attending Unavailable Lars, Dick Chi Referring Unavailable Lars, Dick Chi Primary Care Unavailable DossieLisa D.C. Attending Unavailable Lars, Dcik Chi Referring Unavailable Lars, Dick Chi Primary Care Unavailable DossieLisa D.C. Attending Unavailable Lars, Dick Chi Referring Unavailable DossieLisa D.C. Attending Unavailable Lars, Dick Chi Referring Unavailable DossieLisa D.C. Attending Unavailable Lars, Dick Chi Referring Unavailable Lars, Dick Chi Primary Care Unavailable DossieLisa D.C. Attending Unavailable DossieLisa D.C. Attending Unavailable DossieLisa D.C. Attending Unavailable Lars, Dick Chi Referring Unavailable DossieLisa D.C. Attending Unavailable Lars, Dick Chi Referring Unavailable Lars, Dick Chi Primary Care Unavailable Dossie, Lisa Borges Attending Unavailable Lars, Dick Chi Referring Unavailable Lars, Dick Chi Primary Care Unavailable Dossie, Lisa Borges Attending Unavailable Lars, Dick Chi Referring Unavailable Dossie, Lisa Borges Attending Unavailable Lars, Dick Chi Referring Unavailable Lars, Dick Chi Primary Care Unavailable Dossie, Lisa Borges Attending Unavailable Lars, Dick Chi Referring Unavailable Lars, Dick Chi Attending Unavailable Lars, Dick Chi Referring Unavailable Lars, Dick Chi Primary Care Unavailable Dossie, Lisa Borges Attending Unavailable Lars, Dick Chi Referring Unavailable Lars, Dick Chi Primary Care Unavailable Vellanki, Sonia Attending Unavailable Vellanki, Sonia Referring Unavailable Lars, Dick Chi Primary Care Unavailable Dossie, Lisa Borges Attending Unavailable Lars, Dick Chi Referring Unavailable Basali, Ayman Attending Unavailable Lars, Dick Chi Primary Care Unavailable Lars, Dick Chi Attending Unavailable Lars, Dick Chi Primary Care Unavailable Vellanki, Sonia Attending Unavailable Vellanki, Sonia Referring Unavailable Lars, Dick Chi Primary Care Unavailable PROBLEMS PROBLEMS DATE TYPE CONDITION / CODE ATTENDING STATUS SOURCE 10/30/2018 Unknown M06.4 - Inflammatory Vellanki, 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 / [facility] Community M06.4(ICD-10) Hospital Repository 10/30/2018 Unknown Z79.899 - Other long Vellanki, Active [facility] term (current) drug [facility] therapy / Hospital Z79.899(ICD-10) Repository 10/30/2018 Unknown M15.9 - Vellanki, Active [facility] Polyosteoarthritis, [facility] unspecified / Hospital M15.9(ICD-10) Repository 10/30/2018 Unknown M51.37 - Other Vellanki, Active [facility] intervertebral disc [facility] degeneration, Hospital lumbosacral region / Repository M51.37(ICD-10) 10/30/2018 Unknown M48.061 - Spinal Vellanki, Active [facility] stenosis, lumbar [facility] region without Hospital neurogenic Repository claudication / M48.061(ICD-10) 10/10/2018 Unknown R68.83 - Chills Lars, Dick Chi Active [facility] (without fever) / Community R68.83(ICD-10) Hospital Repository 09/14/2018 Admitting Other hammer toe(s) [facility] [employer] [employer] Diagnosis (acquired), left System foot / Repository M20.42(ICD-10) 09/14/2018 Admitting Unspecified [facility] Diagnosis oste[facility], System unspecified site / Repository M19.90(ICD-10) 09/14/2018 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 / System K22.70(ICD-10) Repository 09/14/2018 Admitting Diaphragmatic hernia [facility] [employer] [employer] Diagnosis without obstruction System or gangrene / Repository K44.9(ICD-10) 09/14/2018 Admitting Hyperlipidemia, [facility] [employer] Diagnosis unspecified / System E78.5(ICD-10) Repository 09/14/2018 Admitting Essential (primary) [facility] Diagnosis hypertension / System I10(ICD-10) Repository 09/14/2018 Admitting Disorder of thyroid, [facility] [employer] Diagnosis unspecified / System E07.9(ICD-10) Repository 09/14/2018 Admitting Acquired absence of [facility] [employer] [employer] Diagnosis other specified System parts of digestive Repository tract / Z90.49(ICD-10) 09/14/2018 Admitting 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 / Repository Z90.710(ICD-10) 07/20/2018 Unknown M21.40 - Flat foot Vellanki, Active [facility] [pes planus] [facility] Community (acquired), Hospital unspecified foot / Repository M21.40(ICD-10) 07/20/2018 Unknown G25.81 - Restless Vellanki, Active [facility] legs syndrome / [facility] G25.81(ICD-10) Hospital Repository 07/20/2018 Unknown 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, 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 [facility] Community dysplasia / Hospital K22.70(ICD-10) Repository 07/20/2018 Unknown F32.89 - Other Vellanki, Active [facility] specified depressive [facility] Community episodes / Hospital F32.89(ICD-10) Repository 07/20/2018 Unknown I10 - Essential Gregorio, Active [facility] (primary) [facility] hypertension / Hospital I10(ICD-10) Repository 07/20/2018 Unknown E03.9 - Vellanki, Active [facility] Hypothyroidism, [facility] Community unspecified / Hospital E03.9(ICD-10) Repository 06/22/2018 Unknown R53.83 - Other Lars, Dick Chi Active [facility] fatigue / Community R53.83(ICD-10) Hospital Repository 06/22/2018 Unknown E55.9 - Vitamin D Lars, Dick Chi Active [facility] deficiency, Community unspecified / Hospital E55.9(ICD-10) Repository 06/22/2018 Unknown M10.9 - Gout, Lars, Dick Chi Active [facility] unspecified / Community M10.9(ICD-10) Hospital Repository 06/06/2018 Unknown F11.20 - Opioid Basali, Ayman Active [facility] dependence, Community uncomplicated / Hospital F11.20(ICD-10) Repository 03/16/2018 Unknown M43.10 - Dossie, Lisa Active [facility] Spondylolisthesis[facility] Community site unspecified / Hospital M43.10(ICD-10) Repository 03/16/2018 Unknown M99.02 - Segmental Dossie, Lisa Active [facility] and somatic [facility] Community dysfunction of Hospital thoracic region / Repository M99.02(ICD-10) 03/16/2018 Unknown M99.03 - Segmental Dossie, Lisa Active [facility] and somatic [facility] Community dysfunction of Hospital lumbar region / Repository M99.03(ICD-10) 03/16/2018 Unknown M99.05 - Segmental Dossie, Lisa Active [facility] and somatic [facility] Community dysfunction of Hospital pelvic region / Repository M99.05(ICD-10) 12/15/2017 Unknown Z13.89 - Encounter Lars, Dick Chi Active [facility] for screening for Community other disorder / Hospital Z13.89(ICD-10) Repository PROCEDURES PROCEDURES No Procedure Records FoundRESULTS RESULTS STRESS REPORT Observed: 11/01/2018 Status: F Source: [facility] 10:12 AM [facility] HOSPITAL REPOSITORY [facility] Cardiovascular Services [address] [place] [address] MR#: [id number] Acct: [id number] Name: MASHA BLAKE Rep #: [id number] : 1955 63 From: Kehinde Lagunas MD Primary Care: Lars LOVE,Dick Chi Status: REG CLI Ordering Dr: Sex: Keiko C Stress Test Report Date: 11/01/2018 Procedure: Pharmacologic stress nuclear imaging study Indications: Abnormal ECG; preoperative cardiovascular evaluation Consent: Per the patient Procedure: The patient underwent pharmacologic (Regadenoson ) evaluation with a peak heart rate of 107 beats per minute (67% predicted maximal heart rate) with a peak blood pressure of 144/92 mmHg. The baseline ECG demonstrated normal sinus rhythm. The peak pharmacological ECG demonstrated no obvious ECG changes. There were no cardiac dysrhythmias pretest, during pharmacologic infusion, or recovery. There was no report of chest discomfort during pharmacologic infusion or recovery. The examination was discontinued secondary to completion of protocol. Impression: 1. Pharmacologic (regadenoson pending evaluation 2. Peak pharmacologic ECG with no obvious ECG changes 3. Nuclear images pending Myocardial perfusion imaging study: Technique: The patient was injected with 11.9 mci of technetium-99m Cardiolite and subsequent stress SPECT Cardiolite nuclear imaging was obtained in the horizontal long, vertical long, and short axis views. The patient underwent pharmacologic (regadenoson) evaluation with a peak heart rate of 107 beats per minute (67% predicted maximal heart rate) with a peak blood pressure of 144/92 mmHg. The patient was injected with 33.6 mci of technetium- 99m Cardiolite and subsequently stress SPECT Cardiolite nuclear imaging was obtained in the horizontal long, vertical long, and short axis views. A gated Cardiolite study at peak stress was obtained. Interpretation: Rest and stress SPECT Cardiolite nuclear imaging status post realignment and normalization (no attenuation correction performed) demonstrated the appearance of relative uniform tracer uptake and myocardial perfusion appearing within normal limits. There is end systolic thickening and brightening. The gated Cardiolite study demonstrates myocardial thickening and inward wall motion. The reported LVEF is 80%. Impression: 1. Rest and stress SPECT Cardiolite nuclear imaging demonstrates relative uniform tracer uptake and myocardial perfusion appearing within normal limits. 2. The gated Cardiolite study reports an LVEF of 80%. This note was generated using a voice recognition system and there may be incorrect words, spelling or punctuation that were not noted when reviewing the office note prior to saving. 11/01/18 1012 <Electronically signed by Kehinde Lagunas MD> Date Kehinde Lagunas MD CC: Dick Sousa MD Date Dictated: 11/01/18 1008 Date Transcribed: 11/01/[address] Inspector: PM Signed CBC W/DIFF, AUTOMATED Collected: 10/30/2018 Status: F Source: [place] 12:44 PM [facility] REPOSITORY TYPE CODE TESTS RESULT OUT OF RANGE REFERENCE UNITS LAB L100.1000 4.4-11.0 K/mm3 Normal WBC 8.1 LAB L100.1200 4.2-5.4 M/mm3 Normal RBC 4.41 LAB L100.1300 12.0-15.0 g/dl Normal HGB 12.8 LAB L100.1400 37-47 % Normal HCT 41.4 LAB L100.1500 81-99 fL Normal MCV 93.9 LAB L100.1600 27.0-32.0 pg Normal MCH 29.0 LAB L100.1700 32-36 g/gl Low MCHC 30.9 LAB L100.1810 11.6-14.6 % Normal RDW CV 14.5 LAB L100.1820 35.1-43.9 fl High RDW SD 49.3 LAB L100.1900 150-450 K/mm3 Normal PLT 366 LAB L100.2000 6.2-12.0 fl Normal MPV 10.4 LAB L100.2100 47-70 % Normal NEUT% 66.6 LAB L100.2200 19-41 % Normal LY% 23.1 LAB L100.2300 0-10 % Normal MONO% 8.4 LAB L100.2400 0-5 % Normal EO% 1.1 LAB L100.2500 0-1 % Normal BASO% 0.6 LAB L100.2550 0.0-0.9 % Normal IM GRAN % 0.200 Result Comment: IG% - Immature Granulocytes (promyelocytes, myelocytes and metamyelocytes) > 1% indicates that a LEFT SHIFT is Present. LAB L100.2620 2.0-7.7 X10 3/uL Normal Absolute Neut 5.4 LAB L100.2720 0.83-4.51 X10 3/ul Normal Absolute Lymph 1.87 Performed By: #### L100.0100 #### [facility] [address] [place], [address] COMPREHENSIVE METABOLIC Collected: 10/30/2018 Status: F Source: [facility] 12:44 PM [facility] REPOSITORY TYPE CODE TESTS RESULT OUT OF RANGE REFERENCE UNITS LAB L501.0100 74-106 mg/dL Normal GLU 81 Result Comment: Please note revised GLUCOSE reference range effective 2017. LAB L501.1000 7-18 mg/dL Normal BUN 9 LAB L501.1100 0.55-1.02 mg/dL Normal CREAT,SERUM 0.73 Result Comment: The validity of the calculated GFR AND GFRAA in patients over 70 years has not been determined. Clinical correlation is essential. LAB L501.1110 >60 mL/min Normal EST GFR 86 Result Comment: Non- GFR Calc LAB L501.1115 >60 mL/min Normal EST GFR - AA 104 Result Comment: GFR Calc LAB L501.1300 10-20 RATIO Normal BUN/CRE 12.3 LAB L501.1500 6.4-8.2 g/dL T Normal PROT 6.8 LAB L501.1800 3.2-5.0 g/dL Normal ALB 3.8 LAB L501.1950 2.2-4.2 g/dL Normal GLOB 3.0 LAB L501.2000 0.9-2.4 RATIO Normal A/G 1.3 LAB L501.2200 8.5-10.1 mg/dL CA Normal 8.7 LAB L501.4100 15-37 U/L Normal AST 16 LAB L501.4305 45-117 U/L Normal ALK P 69 LAB L501.4405 13-56 U/L Normal ALT 24 LAB L501.4600 0.20-1.00 mg/dL T Normal BILI 0.40 LAB L501.5300 136-145 mmol/L NA Normal 141 LAB L501.5600 3.5-5.1 mmol/L K Normal 3.7 LAB L501.5900 98-107 mmol/L CL Normal 105 LAB L501.6100 21.0-32.0 mmol/L Normal CO2 28.0 LAB L501.6200 5-15 Normal GAP 8 Performed By: #### L500.4050 #### [facility] [address] [place], [address] Observed: 10/10/2018 Status: C Source: [place] RESPIRATORY PANEL 2:27 PM [facility] MOLECULAR REPOSITORY Copy of report sent to Infection Control Printer MS#[id number] 10/11/18 1042 DGRADY. RP PANEL Normal Reference Range = Not Detected RESULTS CALLED TO DR SOUSA,NURSE LINE, GIOVANY 10/11/18 1040 Melissa Espinoza. REPORT READ BACK BY NO ONE. ADENOVIRUS Not Detected HUMAN METAPHNEUMO Not Detected INFLUENZA A Positive for INFLUENZA A by NAAT technology INFLUENZA A (SUBTYPE H1) Positive for INFLUENZA A SUBTYPE H1 by NAAT technology INFLUENZA A (SUBTYPE H3) Not Detected INFLUENZA B Not Detected PARAINFLUENZA 1 Not Detected PARAINFLUENZA 2 Not Detected PARAINFLUENZA 3 Not Detected PARAINFLUENZA 4 Not Detected RHINOVIRUS Not Detected RSV A Not Detected RSV B Not Detected NAAT METHOD Testing was performed using nucleic acid amplification ORGANISM 1: INFLUENZA A (SUBTYPE H1) Performed By: #### M100.638 #### [facility] [address] [place], [address] CBC W/DIFF, AUTOMATED Collected: 07/20/2018 Status: F Source: [place] 3:20 PM [facility] REPOSITORY TYPE CODE TESTS RESULT OUT OF RANGE REFERENCE UNITS LAB L100.1000 4.4-11.0 K/mm3 Normal WBC 9.9 LAB L100.1200 4.2-5.4 M/mm3 Normal RBC 4.53 LAB L100.1300 12.0-15.0 g/dl Normal HGB 13.4 LAB L100.1400 37-47 % Normal HCT 41.7 LAB L100.1500 81-99 fL Normal MCV 92.1 LAB L100.1600 27.0-32.0 pg Normal MCH 29.6 LAB L100.1700 32-36 g/gl Normal MCHC 32.1 LAB L100.1810 11.6-14.6 % Normal RDW CV 14.5 LAB L100.1820 35.1-43.9 fl High RDW SD 47.3 LAB L100.1900 150-450 K/mm3 Normal PLT 353 LAB L100.2000 6.2-12.0 fl Normal MPV 10.6 LAB L100.2100 47-70 % High NEUT% 75.1 LAB L100.2200 19-41 % Low LY% 17.8 LAB L100.2300 0-10 % Normal MONO% 5.9 LAB L100.2400 0-5 % Normal EO% 0.4 LAB L100.2500 0-1 % Normal BASO% 0.6 LAB L100.2550 0.0-0.9 % Normal IM GRAN % 0.200 Result Comment: IG% - Immature Granulocytes (promyelocytes, myelocytes and metamyelocytes) > 1% indicates that a LEFT SHIFT is Present. LAB L100.2620 2.0-7.7 X10 3/uL Normal Absolute Neut 7.4 LAB L100.2720 0.83-4.51 X10 3/ul Normal Absolute Lymph 1.77 Performed By: #### L100.0100 #### [facility] [address] [place], [address] COMPREHENSIVE METABOLIC Collected: 07/20/2018 Status: F Source: [facility] 3:20 PM [facility] REPOSITORY TYPE CODE TESTS RESULT OUT OF RANGE REFERENCE UNITS LAB L501.0100 74-106 mg/dL Normal GLU 94 Result Comment: Please note revised GLUCOSE reference range effective 2017. LAB L501.1000 7-18 mg/dL Normal BUN 15 LAB L501.1100 0.55-1.02 mg/dL Normal CREAT,SERUM 0.84 Result Comment: The validity of the calculated GFR AND GFRAA in patients over 70 years has not been determined. Clinical correlation is essential. LAB L501.1110 >60 mL/min Normal EST GFR 73 Result Comment: Non- GFR Calc LAB L501.1115 >60 mL/min Normal EST GFR - AA 88 Result Comment: GFR Calc LAB L501.1300 10-20 RATIO Normal BUN/CRE 17.8 LAB L501.1500 6.4-8.2 g/dL T Normal PROT 7.3 LAB L501.1800 3.2-5.0 g/dL Normal ALB 3.9 LAB L501.1950 2.2-4.2 g/dL Normal GLOB 3.4 LAB L501.2000 0.9-2.4 RATIO Normal A/G 1.1 LAB L501.2200 8.5-10.1 mg/dL CA Normal 8.8 LAB L501.4100 15-37 U/L Normal AST 16 LAB L501.4305 45-117 U/L Normal ALK P 71 LAB L501.4405 13-56 U/L Normal ALT 28 LAB L501.4600 0.20-1.00 mg/dL T Normal BILI 0.40 LAB L501.5300 136-145 mmol/L NA Normal 141 LAB L501.5600 3.5-5.1 mmol/L K Normal 3.5 LAB L501.5900 98-107 mmol/L CL Normal 103 LAB L501.6100 21.0-32.0 mmol/L Normal CO2 28.0 LAB L501.6200 5-15 Normal GAP 10 Performed By: #### L500.4050 #### [facility] [address] [facility] [place], [address] CBC W/DIFF, AUTOMATED Collected: 06/22/2018 Status: F Source: [place] 11:42 AM [facility] REPOSITORY TYPE CODE TESTS RESULT OUT OF RANGE REFERENCE UNITS LAB L100.1000 4.4-11.0 K/mm3 Normal WBC 6.6 LAB L100.1200 4.2-5.4 M/mm3 Normal RBC 4.44 LAB L100.1300 12.0-15.0 g/dl Normal HGB 13.0 LAB L100.1400 37-47 % Normal HCT 40.9 LAB L100.1500 81-99 fL Normal MCV 92.1 LAB L100.1600 27.0-32.0 pg Normal MCH 29.3 LAB L100.1700 32-36 g/gl Low MCHC 31.8 LAB L100.1810 11.6-14.6 % Normal RDW CV 13.8 LAB L100.1820 35.1-43.9 fl High RDW SD 45.9 LAB L100.1900 150-450 K/mm3 Normal PLT 355 LAB L100.2000 6.2-12.0 fl Normal MPV 9.5 LAB L100.2100 47-70 % Normal NEUT% 62.0 LAB L100.2200 19-41 % Normal LY% 25.3 LAB L100.2300 0-10 % High MONO% 10.8 LAB L100.2400 0-5 % Normal EO% 0.8 LAB L100.2500 0-1 % Normal BASO% 0.9 LAB L100.2550 0.0-0.9 % Normal IM GRAN % 0.200 Result Comment: IG% - Immature Granulocytes (promyelocytes, myelocytes and metamyelocytes) > 1% indicates that a LEFT SHIFT is Present. LAB L100.2620 2.0-7.7 X10 3/uL Normal Absolute Neut 4.1 LAB L100.2720 0.83-4.51 X10 3/ul Normal Absolute Lymph 1.66 Performed By: #### L100.0100 #### [facility] [address] [place], [place], [id number] VITAMIN D,25 HYDROXY Collected: 06/22/2018 Status: F Source: [place] 11:42 [facility] TYPE CODE TESTS RESULT OUT OF REFERENCE UNITS RANGE LAB L506.1000 29.95-100.01 ng/mL Low Vitamin D 28.9 25-OH Result Comment: Vitamin D 25(OH) Status Range Deficiency <20 ng/mL (50nmol/L) Insuffciency 20 - 30 ng/mL (50 - 75 nmol/L) Sufficiency 30 - 100 ng/mL (75 - 250 nmol/L) Toxicity >100 ng/mL (>250 nmol/L) Performed By: #### L506.1000 #### [facility] [address] [place], [place], [id number] COMPREHENSIVE METABOLIC Collected: 06/22/2018 Status: F Source: [facility] 11:42 AM [facility] REPOSITORY TYPE CODE TESTS RESULT OUT OF RANGE REFERENCE UNITS LAB L501.0100 74-106 mg/dL Normal GLU 89 Result Comment: Please note revised GLUCOSE reference range effective 2017. LAB L501.1000 7-18 mg/dL Normal BUN 12 LAB L501.1100 0.55-1.02 mg/dL Normal CREAT,SERUM 0.81 Result Comment: The validity of the calculated GFR AND GFRAA in patients over 70 years has not been determined. Clinical correlation is essential. LAB L501.1110 >60 mL/min Normal EST GFR 76 Result Comment: Non- GFR Calc LAB L501.1115 >60 mL/min Normal EST GFR - AA 92 Result Comment: GFR Calc LAB L501.1300 10-20 RATIO Normal BUN/CRE 14.8 LAB L501.1500 6.4-8.2 g/dL T Normal PROT 7.0 LAB L501.1800 3.2-5.0 g/dL Normal ALB 3.6 LAB L501.1950 2.2-4.2 g/dL Normal GLOB 3.4 LAB L501.2000 0.9-2.4 RATIO Normal A/G 1.1 LAB L501.2200 8.5-10.1 mg/dL CA Normal 8.8 LAB L501.4100 15-37 U/L Normal AST 20 LAB L501.4305 45-117 U/L Normal ALK P 68 LAB L501.4405 13-56 U/L Normal ALT 29 LAB L501.4600 0.20-1.00 mg/dL T Normal BILI 0.30 LAB L501.5300 136-145 mmol/L NA Normal 139 LAB L501.5600 3.5-5.1 mmol/L K Normal 3.9 LAB L501.5900 98-107 mmol/L CL Normal 102 LAB L501.6100 21.0-32.0 mmol/L Normal CO2 28.0 LAB L501.6200 5-15 Normal GAP 9 Performed By: #### L500.4050, L501.1400, L501.9520 #### [facility] [address] [place], [address] URIC ACID Collected: 06/22/2018 Status: F Source: [place] 11:42 AM [facility] REPOSITORY TYPE CODE TESTS RESULT OUT OF RANGE REFERENCE UNITS LAB L501.1400 2.6-6.0 mg/dL Normal URIC 5.5 Result Comment: The drugs N-Acetylcysteine and Metamizole may falsely depress this assay. Performed By: #### L500.4050, L501.1400, L501.9520 #### [facility] [address] [place], [address] THYROID STIM HORMONE Collected: 06/22/2018 Status: F Source: KATHERINE (TSH) 11:42 AM [facility] REPOSITORY TYPE CODE TESTS RESULT OUT OF RANGE REFERENCE UNITS LAB L501.9520 0.358-3.74 uIU/mL Normal TSH 1.82 Performed By: #### L500.4050, L501.1400, L501.9520 #### [facility] [address] [place], [address] URINE DRUG SCREEN Collected: 06/06/2018 Status: F Source: KATHERINE (VISTA) 2:00 PM [facility] REPOSITORY Order Comment: Comments: [id number] URINE DRUG SCREEN RUN LOWEST TEST List of Drugs Taken or Suspected? UNK TYPE CODE TESTS RESULT OUT OF RANGE REFERENCE UNITS LAB L505.0075 TO BE Normal CONFIRMED Result Comment: CONFIRMATORY TESTING FOR ALL POSITIVE URINE DRUG SCREEN RESULTS WILL ONLY BE SENT OUT UPON PHYSICIAN ORDER. VISTA Urine Drug Screen methods provide only preliminary analytical test results. A more specific alternate chemical method must be used in order to obtain a confirmed analytical result. Gas chromatography/mass spectrometery (GC/MS) is the preferred confirmatory method. Clinical consideration and professional judgement should be applied to any drug of abuse test result, particularly when preliminary positive results are used. URINE TCA TESTING MUST BE ORDERED SEPARATELY. USE TEST MNEMONIC: [facility] LAB L505.5005 VISTA UDS PH 5 Normal LAB L505.5015 <1000 ng/mL AMPHETAMINES Normal NEGATIVE LAB L505.5025 < 200 ng/mL BARBITIURATES Normal NEGATIVE LAB L505.5035 < 200 ng/mL BENZODIAZIPINE Normal NEGATIVE LAB L505.5045 < 300 ng/mL COCAINE Normal NEGATIVE LAB L505.5055 < 500 ng/mL ECSTACY Normal NEGATIVE LAB L505.5065 < 300 ng/mL METHADONE Normal NEGATIVE LAB L505.5075 < 300 High ng/mL OPIATES POSITIVE LAB L505.5085 < 25 ng/mL PCP Normal NEGATIVE LAB L505.5095 < 50 ng/mL THC Normal NEGATIVE Performed By: #### L505.5000 #### [facility] [address] [place], [address] MISCELLANEOUS LAB Collected: 06/06/2018 Status: F Source: KATHERINE PROCEDURE 2:00 PM [facility] REPOSITORY Order Comment: Comments: [id number] URINE DRUG SCREEN RUN LOWEST TEST Test(s) Ordered: [id number] URINE DRUG SCREEN RUN LOWEST TEST TYPE CODE TESTS RESULT OUT OF RANGE REFERENCE UNITS LAB L801.1541 Normal [facility] LAB TEST Result Comment: TEST RESULT UNITS REF INTERVAL [id number] 6+Oxycodone-Bund Amphetamines, Urine Negative ng/mL Ujbqbc=8316 Amphetamine test includes Amphetamine and Methamphetamine. Barbiturate Negative ng/mL Wymtwd=174 Benzodiazepines Negative ng/mL Urfanu=100 Cannabinoids Negative ng/mL Cutoff=20 Cocaine (Metabolite) Negative ng/mL Hydous=428 Opiates Positive ng/mL Rmrvnl=169 Opiate test includes Codeine, Morphine, Hydromorphone, Hydrocodone. Please Note: Confirmation performed by Mass Spectrometry Codeine Negative Vagtqj=731 Morphine Negative Ucgjxa=269 Hydromorphone Negative Fdrxgr=777 Hydrocodone Positive Hydrocodone Confirm 1330 ng/mL Ewbwpj=760 Oxycodone/Oxymorphone, Urine Negative ng/mL Uzhssq=437 Test includes Oxycodone and Oxymorphone TESTING PERFORMED AT [facility]. ORIGINAL REPORT ON FILE IN LAB CONTAINS ADDITIONAL TEST SITE INFORMATION. Performed By: #### L801.1541 #### [place] [facility] [address] [place], [address] CHIROPRACTIC REPORT Observed: 05/09/2018 Status: F Source: KATHERINE 9:12 AM [facility] REPOSITORY [facility] [address] OFFICE VISIT Date of Service: 04/05/18 MR#: [id number] Acct: [id number] Name: MASHA BLAKE Rep #: [id number] : 1955 Provider: Lisa Vaca D.C. Age/Sex: 62/F Location[facility] Status: Signed with Addenda ADDENDUM by Lisa Vaca D.C. on 05/09/18 at 0912 Addendum entered and electronically signed by Lisa Vaca DC 05/09/18 09:12: Procedure Orders: 12146: T11, L3, L5, RIL 30065: lumbar, 15min 05/09/18 0912 <Electronically signed by Lisa Vaca D.C.> Date Lisa Vaca D.C. cc: * Signed Intake Vital Signs04/05/18 Height 5 ft 3 in 04/05/18 Weight: 171 lb 04/05/18 Body Mass Index (BMI) 30.2 Intake Visit Reasons: back pain Chief Complaint: back pain Is patient in [facility]?: [facility] Anterolisthesis (Chronic) HPI back pain: Chief Complaint: low back pain Visit Number: 11 Details: MASHA BLAKE is a 62 year old F who presents with decreased low back pain. She states that her low back pain is described as a tight ache that comes and goes, bending, lifting, and twisting still causes increased low back pain. Today she rates her pain a 3/10, at times there is still a sharp pain that will band across the low back, although she denies any numbness, tingling, or radiculopathy. Location: low back Duration: intermittent Aggravating or associated factors: bending, lifting, twisting and prolonged sitting Relieving factors: chiro Pain Quality: aching, dull, sharp Exam Musc General: Yes normal gait, joint tenderness (T10, T11, L3-L5, R SI), decreased ROM and normal posture Thoracic/Lumbar Spine: thoracic and lumbar spine normal to inspection (sway back), straight leg raise positive bilaterally, Lasegue's sign positive bilaterally, pain with thoraco-lumbar ROM with forward flexion, with rotation to the right and with rotation to the left, thoraco-lumbar ROM limited with forward flexion, paraspinal tenderness (slightly improved) bilaterally in the lower lumbar, thoraco-lumbar spasm bilaterally in the lower lumbar Sacroiliac joints: on the right Assessment AND Plan Problems 1. Segmental and somatic dysfunction of pelvic region M99.05 2. Segmental and somatic dysfunction of thoracic region M99.02 3. Segmental and somatic dysfunction of lumbar region M99.03 4. Anterolisthesis M43.10 Plan Continue on acute treatment plan. Orders Orders: Plan Detail Goals Decrease pain and inflammation Increase ROM Barriers Anterolisthesis Follow Up 2x/wk Coding Level of Care Code No Charge Diagnoses Segmental and somatic dysfunction of pelvic region M99.05 Segmental and somatic dysfunction of thoracic region M99.02 Segmental and somatic dysfunction of lumbar region M99.03 Anterolisthesis M43.10 05/09/18 0909 <Electronically signed by Lisa Vaca D.C.> Date Lisa Vaca D.C. Cosigner Signature: Date (if applicable) CC: CBC W/DIFF, AUTOMATED Collected: 05/04/2018 Status: F Source: KATHERINE 2:32 PM [facility] REPOSITORY TYPE CODE TESTS RESULT OUT OF RANGE REFERENCE UNITS LAB L100.1000 4.4-11.0 K/mm3 Normal WBC 10.9 LAB L100.1200 4.2-5.4 M/mm3 Normal RBC 4.42 LAB L100.1300 12.0-15.0 g/dl Normal HGB 12.8 LAB L100.1400 37-47 % Normal HCT 40.1 LAB L100.1500 81-99 fL Normal MCV 90.7 LAB L100.1600 27.0-32.0 pg Normal MCH 29.0 LAB L100.1700 32-36 g/gl Low MCHC 31.9 LAB L100.1810 11.6-14.6 % High RDW CV 14.8 LAB L100.1820 35.1-43.9 fl High RDW SD 48.2 LAB L100.1900 150-450 K/mm3 Normal PLT 374 LAB L100.2000 6.2-12.0 fl Normal MPV 9.9 LAB L100.2100 47-70 % High NEUT% 76.4 LAB L100.2200 19-41 % Low LY% 15.9 LAB L100.2300 0-10 % Normal MONO% 6.9 LAB L100.2400 0-5 % Normal EO% 0.2 LAB L100.2500 0-1 % Normal BASO% 0.5 LAB L100.2550 0.0-0.9 % Normal IM GRAN % 0.100 Result Comment: IG% - Immature Granulocytes (promyelocytes, myelocytes and metamyelocytes) > 1% indicates that a LEFT SHIFT is Present. LAB L100.2620 2.0-7.7 X10 3/uL High Absolute Neut 8.4 LAB L100.2720 0.83-4.51 X10 3/ul Normal Absolute Lymph 1.73 Performed By: #### L100.0100, L101.9900 #### [facility] [address], [place], [id number] ERYTHROCYTE SED RATE Collected: 05/04/2018 Status: F Source: [place] 2:32 PM [facility] REPOSITORY TYPE CODE TESTS RESULT OUT OF RANGE REFERENCE UNITS LAB L102.0000 0-30 mm/hr Normal SED RATE 10 Performed By: #### L100.0100, L101.9900 #### [facility] [address], [place], [address] COMPREHENSIVE METABOLIC Collected: 05/04/2018 Status: F Source: [facility] 2:32 PM [facility] REPOSITORY TYPE CODE TESTS RESULT OUT OF RANGE REFERENCE UNITS LAB L501.0100 74-106 mg/dL Normal GLU 83 Result Comment: Please note revised GLUCOSE reference range effective 2017. LAB L501.1000 7-18 mg/dL Normal BUN 10 LAB L501.1100 0.55-1.02 mg/dL Normal CREAT,SERUM 0.86 Result Comment: The validity of the calculated GFR AND GFRAA in patients over 70 years has not been determined. Clinical correlation is essential. LAB L501.1110 >60 mL/min Normal EST GFR 71 Result Comment: Non- GFR Calc LAB L501.1115 >60 mL/min Normal EST GFR - AA 86 Result Comment: GFR Calc LAB L501.1300 10-20 RATIO Normal BUN/CRE 11.7 LAB L501.1500 6.4-8.2 g/dL T Normal PROT 6.9 LAB L501.1800 3.2-5.0 g/dL Normal ALB 3.8 LAB L501.1950 2.2-4.2 g/dL Normal GLOB 3.1 LAB L501.2000 0.9-2.4 RATIO Normal A/G 1.2 LAB L501.2200 8.5-10.1 mg/dL CA Normal 8.6 LAB L501.4100 15-37 U/L Normal AST 22 LAB L501.4305 45-117 U/L Normal ALK P 70 LAB L501.4405 13-56 U/L Normal ALT 24 LAB L501.4600 0.20-1.00 mg/dL T Normal BILI 0.50 LAB L501.5300 136-145 mmol/L NA Normal 138 LAB L501.5600 3.5-5.1 mmol/L K Normal 3.6 LAB L501.5900 98-107 mmol/L CL Normal 103 LAB L501.6100 21.0-32.0 mmol/L Normal CO2 28.0 LAB L501.6200 5-15 Normal GAP 7 Performed By: #### L500.4050, L501.6710, L505.7010 #### [facility] [address] [place], [address] CRP Collected: 05/04/2018 Status: F Source: [place] 2:32 PM [facility] REPOSITORY TYPE CODE TESTS RESULT OUT OF RANGE REFERENCE UNITS LAB L501.6710 0.0-3.0 mg/L Normal < 2.90 C-REACTIVE PROT Result Comment: C-Reactive Protein (CRP) provides useful information for the diagnosis, therapy and monitoring of inflammatory processes and associated diseases. For the evaluation of Relative Risk for Cardiovascular Disease, a High Sensitivity CRP (HSCRP) should be ordered. Performed By: #### L500.4050, L501.6710, L505.7010 #### [facility] [address] [place], [address] RHEUMATOID FACTOR Collected: 05/04/2018 Status: F Source: [place] 2:32 PM [facility] REPOSITORY TYPE CODE TESTS RESULT OUT OF RANGE REFERENCE UNITS LAB L505.7010 <15 IU/mL Normal RHEUMATOID FAC < 10.0 Performed By: #### L500.4050, L501.6710, L505.7010 #### [facility] [address] [place], [address] PELVIS 1 OR 2 VIEWS Observed: 05/04/2018 Status: F Source: [place] 2:32 PM [facility] REPOSITORY [facility] Imaging Services [address] [facility] [place] [address] Pelvis 1 or 2 Views MR#: [id number] Acct: [id number] Name: MASHA BLAKE Rep #: [id number] : 1955 F 63 From: Antonino Oreilly MD PCP: Lars LOVE,Dick Chi Status: REG CLI Study: Pelvis 1 or 2 Views Date of Exam: 05/04/18 Exam# [id number] Ordering Dr: Sonia Perkins MD STUDY: X-RAY - PELVIS REASON FOR EXAM: Female, 63 years old. Bilateral hip pain. No history of injury. TECHNIQUE: One view of the pelvis was obtained. COMPARISON: None. FINDINGS: There is a non-specific bowel gas pattern. There are multiple calcified phleboliths. Normal bilateral iliac wings, sacroiliac joints and visualized sacrum. Normal visualized bilateral superior and inferior pubic rami. Normal pubic symphysis. Normal ischial tuberosities. Normal visualized right femoral head. Normal right acetabulum. Normal right hip joint. Normal visualized left femoral head. Normal left acetabulum. Normal left hip joint. RAD/Pelvis 1 or 2 Views IMPRESSION: Unremarkable hip joint. Electronically Signed: Antonino Oreilly MD at 11:48 EDT Tel , Service support , CC: Sonia Perkins MD; Dick Sousa MD Street Inspector: Signed HEPATITIS B SURFACE Collected: 05/04/2018 Status: F Source: KATHERINE AG 2:32 PM [facility] REPOSITORY TYPE CODE TESTS RESULT OUT OF RANGE REFERENCE UNITS LAB L3100.0400 Negative Normal HB Negative SURF AG Result Comment: Performed at: - [facility] [id number] Stopper Grinder: Jai Israel PhD, Phone: [phone] Performed at: - [facility] [id number] Stopper Grinder: Markus Avitia MD, Phone: [phone] Performed By: #### L3100.0390, L3100.0528, L3100.0625, L4600.0100, L3410.1400 #### [facility] (refer to report for specific site) refer to report for address and phone number HEP B SURFACE Collected: 05/04/2018 Status: F Source: KATHERINE ANTIBODIES 2:32 PM [facility] REPOSITORY TYPE CODE TESTS RESULT OUT OF RANGE REFERENCE UNITS LAB L3100.0528 . Normal Hep B Non Reactive Beckie AB Result Comment: Non Reactive: Inconsistent with immunity, less than 10 mIU/mL Reactive: Consistent with immunity, greater than 9.9 mIU/mL Performed By: #### L3100.0390, L3100.0528, L3100.0625, L4600.0100, L3410.1400 #### [facility] (refer to report for specific site) refer to report for address and phone number HEPATITIS C ANTIBODIES Collected: 05/04/2018 Status: F Source: KATHERINE 2:32 PM [facility] REPOSITORY TYPE CODE TESTS RESULT OUT OF RANGE REFERENCE UNITS LAB L3100.0650 0.0-0.9 s/co ratio Normal HEP C AB 0.1 Result Comment: Negative: < 0.8 Indeterminate: 0.8 - 0.9 Positive: > 0.9 The CDC recommends that a positive HCV antibody result be followed up with a HCV Nucleic Acid Amplification test (756004). Performed By: #### L3100.0390, L3100.0528, L3100.0625, L4600.0100, L3410.1400 #### [facility] (refer to report for specific site) refer to report for address and phone number CCP IGG ANTIBODIES Collected: 05/04/2018 Status: F Source: KATHERINE 2:32 PM [facility] REPOSITORY TYPE CODE TESTS RESULT OUT OF RANGE REFERENCE UNITS LAB L4600.0100 0-19 units Normal ANTI-CCP 6 [id number] Result Comment: Negative <20 Weak positive 20 - 39 Moderate positive 40 - 59 Strong positive >59 Performed By: #### L3100.0390, L3100.0528, L3100.0625, L4600.0100, L3410.1400 #### [facility] (refer to report for specific site) refer to report for address and phone number HLA B27 Collected: 05/04/2018 Status: F Source: KATHERINE 2:32 PM [facility] REPOSITORY TYPE CODE TESTS RESULT OUT OF RANGE REFERENCE UNITS LAB L3410.1500 . Normal HLA Negative B27 Result Comment: HLA-B*27 Negative B27 allele interpretation for all loci based on IMGT/HLA database version 3.27 This test was developed and its performance characteristics determined by [facility]. It has not been cleared or approved by the Food and Drug Administration. [facility] CLIA ID Number [id number] This test was performed using PCR (Polymerase Chain Reaction)/SSOP (Sequence Specific Oligonucleotide Probes) technique. SBT (Sequence Based Typing) and/or SSP (Sequence Specific Primers) may be used as supplemental methods when necessary. Please contact [facility] Customer Service at if you have any questions. Director of [facility] Laboratory Dr Lion Lim, PhD Performed at: - [address] [id number] Stopper Grinder: Lion Lim PhD, Phone: [phone] Performed By: #### L3100.0390, L3100.0528, L3100.0625, L4600.0100, L3410.1400 #### [facility] (refer to report for specific site) refer to report for address and phone number Observed: 04/03/2018 Status: C Source: [place] RESPIRATORY PANEL 10:21 AM [facility] MOLECULAR REPOSITORY RESULTS CALLED TO DR LORA NURSE LINE 04/04/18 0750 Latisha Olvera. RP PANEL Normal Reference Range = Not Detected Copy of report sent to Infection Control Printer [id number] 04/04/18 0722 CALOS. ADENOVIRUS Not Detected HUMAN METAPHNEUMO Not Detected INFLUENZA A Not Detected INFLUENZA A (SUBTYPE H1) Not Detected INFLUENZA A (SUBTYPE H3) Not Detected INFLUENZA B Not Detected PARAINFLUENZA 1 Not Detected PARAINFLUENZA 2 Not Detected PARAINFLUENZA 3 Not Detected PARAINFLUENZA 4 Not Detected RHINOVIRUS Positive for RHINOVIRUS by NAAT technology RSV A Not Detected RSV B Not Detected NAAT METHOD Testing was performed using nucleic acid amplification ORGANISM 1: RHINOVIRUS Performed By: #### M100.638 #### [facility] [address] [place], [place], [phone] CHIROPRACTIC REPORT Observed: 03/28/2018 Status: F Source: [place] 9:36 AM [facility] REPOSITORY [facility] [place] [address] OFFICE VISIT Date of Service: 03/15/18 MR#: [id number] Acct: [id number] Name: MASHA BLAKE Rep #: [id number] : 1955 Provider: Lisa Vaca D.C. Age/Sex: 62/F [place] [facility] [place]: Signed Intake Vital Signs03/15/18 Height 5 ft 3 in 03/15/18 Weight: 171 lb 03/15/18 Body Mass Index (BMI) 30.2 Intake Visit Reasons: low back pain Chief Complaint: back pain Is patient in pain?: Yes [facility] Medical History Anterolisthesis (Chronic) HPI low back pain : Chief Complaint: low back pain Visit Number: 10 Details: MASHA BLAKE is a 62 year old F who presents with R sided low back pain. She states that there is a tight pulling sensation radiating down the R low back and into the thigh, bending and twisting, along with leaning forward causes increased pain on the R side. Today the patient rates her pain a 4/10 and describes it as a tight ache, she denies any numbness, or tingling and is no longer experiencing the pain into her groin. Location: R low back Duration: constant Aggravating or associated factors: twisting, bending and leaning Relieving factors: chiro Pain Quality: aching, dull, radiating Exam Musc General: Yes normal gait, joint tenderness (T10, T11, L3-L5, R SI), decreased ROM and normal posture Thoracic/Lumbar Spine: thoracic and lumbar spine normal to inspection (sway back), straight leg raise positive bilaterally, Lasegue's sign positive bilaterally, pain with thoraco-lumbar ROM with forward flexion, with rotation to the right and with rotation to the left, thoraco-lumbar ROM limited with forward flexion, paraspinal tenderness bilaterally in the lower lumbar, thoraco-lumbar spasm bilaterally in the lower lumbar Sacroiliac joints: on the right Office Procedures Chiropractic Treatments Procedures Manipulation: 3-4 regions (T10, L3,L5, RIL) Electrical Stimulation: 15 mins Location: R lumbar Assessment AND Plan 1. Segmental and somatic dysfunction of pelvic region M99.05 Orders Orders: 2. Segmental and somatic dysfunction of thoracic region M99.02 Orders Orders: 3. Segmental and somatic dysfunction of lumbar region M99.03 Orders Orders: 4. Anterolisthesis M43.10 Orders Orders: Plan Detail Goals Decrease pain and inflammation Increase ROM Barriers Anterolisthesis Follow Up 1 Week Coding Level of Care Code No Charge Diagnoses Segmental and somatic dysfunction of pelvic region M99.05 Segmental and somatic dysfunction of thoracic region M99.02 Segmental and somatic dysfunction of lumbar region M99.03 Anterolisthesis M43.10 Additional Codes Procedures - Manipulation: 3-4 regions (36527) Procedures - Electrical Stimulation: 15 mins (47314) 03/28/18 0936 <Electronically signed by Lisa Vaca D.C.> Date Lisa Vaca D.C. Cosigner Signature: Date (if applicable) CC: CHIROPRACTIC REPORT Observed: 03/07/2018 Status: F Source: KATHERINE 1:28 PM [facility] REPOSITORY [facility] [address] [place] [address] OFFICE VISIT Date of Service: 03/06/18 MR#: [id number] Acct: [id number] Name: MASHA BLAKE Rep #: [id number] : 1955 Provider: Lisa Vaca D.C. Age/Sex: 62/F Location[place] [facility] Status: Signed Intake Vital Signs03/06/18 Height 5 ft 3 in 03/06/18 Weight: 171 lb 03/06/18 Body Mass Index (BMI) 30.2 Intake Visit Reasons: low back pain Chief Complaint: back pain Is patient in pain?: Yes [facility] Medical History Anterolisthesis (Chronic) HPI low back pain : Chief Complaint: low back pain Visit Number: 9 Details: MASHA BLAKE is a 62 year old F who presents with low back pain. She states that for the past two days her pain on the lower R side of the back has slightly increased. Today Masha rates her pain a 4/10 and describes it as as deep ache, although when bending, lifting and prolonged walking the pain can become sharp. Masha denies any numbness, tingling, or radiculopathy. Onset: 03/04/18 Location: R sided low back pain Duration: constant Aggravating or associated factors: bending, lifting and prolonged standing/ sitting Pain Quality: aching, dull, sharp Exam Musc General: Yes normal gait, joint tenderness (T10, T11, L3-L5, R SI), decreased ROM and normal posture Thoracic/Lumbar Spine: thoracic and lumbar spine normal to inspection (sway back), straight leg raise positive bilaterally, Lasegue's sign positive bilaterally, pain with thoraco-lumbar ROM with forward flexion, with rotation to the right and with rotation to the left, thoraco-lumbar ROM limited with forward flexion, paraspinal tenderness bilaterally in the lower lumbar, thoraco-lumbar spasm bilaterally in the lower lumbar Sacroiliac joints: on the right Office Procedures Chiropractic Treatments Procedures Manipulation: 3-4 regions (T10, L3,L5, RIL) Electrical Stimulation: 15 mins Location: Lumbar Traction, Mechanical: Yes Details: Lumbar traction 15 min Assessment AND Plan 1. Segmental and somatic dysfunction of pelvic region M99.05 Orders Orders: 2. Segmental and somatic dysfunction of thoracic region M99.02 Orders Orders: 3. Segmental and somatic dysfunction of lumbar region M99.03 Orders Orders: 4. Anterolisthesis M43.10 Orders Orders: Plan Detail Goals Decrease pain and inflammation Increase ROM Barriers Anterolisthesis Follow Up 2x/wk Coding Level of Care Code No Charge Diagnoses Segmental and somatic dysfunction of pelvic region M99.05 Segmental and somatic dysfunction of thoracic region M99.02 Segmental and somatic dysfunction of lumbar region M99.03 Anterolisthesis M43.10 Additional Codes Procedures - Electrical Stimulation: 15 mins (26820) Procedures - Traction, Mechanical: Yes (76791) Procedures - Manipulation: 3-4 regions (90680) 03/07/18 1328 <Electronically signed by Lisa Vaca D.C.> Date Lisa Vaca D.C. Cosigner Signature: Date (if applicable) CC: CHIROPRACTIC REPORT Observed: 03/06/2018 Status: F Source: [place] 1:40 PM [facility] [address] [place] [address] OFFICE VISIT Date of Service: 03/05/18 MR#: [id number] Acct: [id number] Name: MASHA BLAKE Rep #: [id number] : 1955 Provider: Lisa Vaca D.C. Age/Sex: 62/F [place] [facility] Status: Signed Intake Vital Signs03/05/18 Height 5 ft 3 in 03/05/18 Weight: 171 lb 03/05/18 Body Mass Index (BMI) 30.2 Intake Visit Reasons: low back pain Chief Complaint: back pain Is patient in pain?: Yes [facility] Medical History Anterolisthesis (Chronic) HPI low back pain : Chief Complaint: low back pain Visit Number: 8 Details: MASHA BLAKE is a 62 year old F who presents with improving low back pain. She states that over the weekend she noticed an increase in pain on the lower R side of the back. The pain is described as a sharp ache that is constant. Leaning forward, rotation, and bending cause increased pain. She still presents with the low back achiness but denies any numbness, tingling or radiculopathy. Location: low back - R sided Duration: constant Aggravating or associated factors: bending, lifting and rotation Relieving factors: chiro, injection Pain Quality: aching, dull, sharp Exam Musc General: Yes normal gait, joint tenderness (T12, L3-L5, R/L SI joints), decreased ROM and normal posture Thoracic/Lumbar Spine: thoracic and lumbar spine normal to inspection (sway back), straight leg raise positive bilaterally, Lasegue's sign positive bilaterally, pain with thoraco-lumbar ROM with forward flexion, with rotation to the right and with rotation to the left, thoraco-lumbar ROM limited with forward flexion, paraspinal tenderness bilaterally in the lower lumbar, thoraco-lumbar spasm bilaterally in the lower lumbar Office Procedures Chiropractic Treatments Procedures Electrical Stimulation: 15 mins Location: lumbar Traction, Mechanical: Yes Details: Lumbar traction 15 min Assessment AND Plan 1. Segmental and somatic dysfunction of pelvic region M99.05 Orders Orders: 2. Segmental and somatic dysfunction of thoracic region M99.02 Orders Orders: 3. Segmental and somatic dysfunction of lumbar region M99.03 Orders Orders: 4. Anterolisthesis M43.10 Orders Orders: Plan Detail Goals Decrease pain and inflammation Increase ROM Barriers Anterolisthesis Follow Up 2 x week Coding Level of Care Code No Charge Diagnoses Segmental and somatic dysfunction of pelvic region M99.05 Segmental and somatic dysfunction of thoracic region M99.02 Segmental and somatic dysfunction of lumbar region M99.03 Anterolisthesis M43.10 Additional Codes Procedures - Electrical Stimulation: 15 mins (30051) Procedures - Traction, Mechanical: Yes (14480) 03/06/18 1340 <Electronically signed by Lisa Vaca D.C.> Date Lisa Vaca D.C. Cosigner Signature: Date (if applicable) CC: CHIROPRACTIC REPORT Observed: 03/05/2018 Status: F Source: [place] 12:57 PM [facility] [address] [place] [address] OFFICE VISIT Date of Service: 03/01/18 MR#: [id number] Acct: [id number] Name: MASHA BLAKE Rep #: [id number] : 1955 Provider: Lisa Vaca D.C. Age/Sex: 62/F [place] [facility] [place] Status: Signed Intake Vital Signs03/01/18 Height 5 ft 3 in 03/01/18 Weight: 171 lb 03/01/18 Body Mass Index (BMI) 30.2 Intake Visit Reasons: Low back pain Chief Complaint: back pain Is patient in pain?: Yes [facility] Medical History Anterolisthesis (Chronic) HPI Low back pain: Chief Complaint: low back pain Visit Number: 7 Details: MASHA BLAKE is a 62 year old F who presents with decreased low back pain. Masha states that after her last treatment the pain greatly decreased, although has slightly returned. Today she rates her pain a 4/10 and describes it as a dull ache that is constant, and can be a throb. Bending, lifting, and prolonged sitting still cause a slight increase in pain, although she denies any numbness, tingling or radiculopathy. Location: low back pain Duration: intermittent Aggravating or associated factors: bending, lifting and prolonged standing Relieving factors: chiro, injection Pain Quality: aching, dull, sharp Exam Musc General: Yes normal gait, joint tenderness (T12, L3-L5, R/L SI joints), decreased ROM and normal posture Thoracic/Lumbar Spine: thoracic and lumbar spine normal to inspection (sway back), straight leg raise positive bilaterally, Lasegue's sign positive bilaterally, pain with thoraco-lumbar ROM with forward flexion, with rotation to the right and with rotation to the left, thoraco-lumbar ROM limited with forward flexion, paraspinal tenderness (slightly improved) bilaterally in the lower lumbar, thoraco-lumbar spasm (slightly improved) bilaterally in the lower lumbar Office Procedures Chiropractic Treatments Procedures Manipulation: 3-4 regions (T12, L3,L5, RIL) Electrical Stimulation: 15 mins Location: lumbar Traction, Mechanical: Yes Details: Lumbar traction 15 min Assessment AND Plan 1. Acute right-sided low back pain without sciatica M54.5 2. Segmental and somatic dysfunction of pelvic region M99.05 Orders Orders: 3. Segmental and somatic dysfunction of thoracic region M99.02 Orders Orders: 4. Segmental and somatic dysfunction of lumbar region M99.03 Orders Orders: 5. Anterolisthesis M43.10 Orders Orders: Plan Detail Additional Comments Patient is showing progress with decreasing pain and inflammation. Continue care. Goals Decrease pain and inflammation Increase ROM Barriers Anterolisthesis Follow Up 2 x week Coding Level of Care Code No Charge Diagnoses Acute right-sided low back pain without sciatica M54.5 Chronicity: acute Back pain laterality: right Sciatica presence: without sciatica Segmental and somatic dysfunction of pelvic region M99.05 Segmental and somatic dysfunction of thoracic region M99.02 Segmental and somatic dysfunction of lumbar region M99.03 Anterolisthesis M43.10 Additional Codes Procedures - Electrical Stimulation: 15 mins (43477) Procedures - Traction, Mechanical: Yes (68675) Procedures - Manipulation: 3-4 regions ([id number]) 03/05/18 1257 <Electronically signed by Lisa Vaca D.C.> Date Lisa Vaca D.C. Cosigner Signature: Date (if applicable) CC: CHIROPRACTIC REPORT Observed: 02/28/2018 Status: F Source: [place] 8:48 AM [facility] [address] [place] [address] OFFICE VISIT Date of Service: 02/27/18 MR#: [id number] Acct: [id number] Name: MASHA BLAKE Rep #: [id number] : 1955 Provider: Lisa Vaca D.C. Age/Sex: 62/F [place] [facility] [place] Signed Intake Vital Signs02/27/18 Height 5 ft 3 in 02/27/18 Weight: 171 lb 02/27/18 Body Mass Index (BMI) 30.2 Intake Visit Reasons: low back pain Chief Complaint: back pain Is patient in pain?: Yes [facility] Medical History Anterolisthesis (Chronic) HPI low back pain : Chief Complaint: low back pain Visit Number: 6 Details: MASHA BLAKE is a 62 year old F who presents with decreased low back pain. Today Masha rates her pain a 4/10 and describes it as a sore deep ache that bands across the low back, she denies any numbness, tingling or radiculopathy. Prolonged walking and sitting still cause a slight increase in pain, although it is not as severe. Location: low back Duration: constant Aggravating or associated factors: prolonged walking and standing Relieving factors: chiro, pain management Pain Quality: aching, dull Exam Musc General: Yes normal gait, joint tenderness (T12, L3-L5, R/L SI joints), decreased ROM and normal posture Thoracic/Lumbar Spine: thoracic and lumbar spine normal to inspection (sway back), straight leg raise positive bilaterally, Lasegue's sign positive bilaterally, pain with thoraco-lumbar ROM with forward flexion, with rotation to the right and with rotation to the left, thoraco-lumbar ROM limited with forward flexion, paraspinal tenderness (slightly improved) bilaterally in the lower lumbar, thoraco-lumbar spasm (slightly improved) bilaterally in the lower lumbar Office Procedures Chiropractic Treatments Procedures Manipulation: 3-4 regions (T12, L3,L5, RIL) Electrical Stimulation: 15 mins Location: Lumbar Traction, Mechanical: Yes Details: Lumbar traction 15 min Assessment AND Plan 1. Segmental and somatic dysfunction of pelvic region M99.05 Orders Orders: 2. Segmental and somatic dysfunction of thoracic region M99.02 Orders Orders: 3. Segmental and somatic dysfunction of lumbar region M99.03 Orders Orders: 4. Anterolisthesis M43.10 Plan Patient showing mild improvement. Continue with acute care treatment plan. Orders Orders: Plan Detail Goals Decrease pain and inflammation Increase ROM Barriers Anterolisthesis Follow Up 3 x week Coding Level of Care Code No Charge Diagnoses Segmental and somatic dysfunction of pelvic region M99.05 Segmental and somatic dysfunction of thoracic region M99.02 Segmental and somatic dysfunction of lumbar region M99.03 Anterolisthesis M43.10 Additional Codes Procedures - Electrical Stimulation: 15 mins (03799) Procedures - Traction, Mechanical: Yes (07550) Procedures - Manipulation: 3-4 regions (35142) 02/28/18 0848 <Electronically signed by Lisa Vaca D.C.> Date Lisa Vaca D.C. Cosigner Signature: Date (if applicable) CC: CHIROPRACTIC REPORT Observed: 02/26/2018 Status: F Source: [place] 3:27 PM [facility] [address] [place] [address] OFFICE VISIT Date of Service: 02/26/18 MR#: [id number] Acct: [id number] Name: MASHA BLAKE Rep #: [id number] : 1955 Provider: Lisa Vaca D.C. Age/Sex: 62/F Location: [facility] Status: Signed Intake Vital Signs02/26/18 Height 5 ft 3 in 02/26/18 Weight: 171 lb 02/26/18 Body Mass Index (BMI) 30.2 Intake Visit Reasons: back pain Chief Complaint: back pain Is patient in pain?: Yes [facility] Medical History Anterolisthesis (Chronic) HPI back pain : Chief Complaint: back pain Visit Number: 5 Details: MASHA BLAKE is a 62 year old F who presents with slightly decreased low back pain. Masha did receive a lumbar spine injection on causing a decrease in pain, although her legs still feel weak and sore. Today the patient rates her pain a 5/10 and describes it as a deep and sore ache that is constant. Bending, lifting, prolonged walking, sitting and standing up all cause increased pain. She states the the sharp jolting sensation in her L groin is no longer presents, Masha denies any numbness, tingling, or radiculopathy. Location: low back Duration: constant Aggravating or associated factors: bending, lifting, prologned standing, sitting and getting up Pain Quality: aching, dull, sharp Exam Musc General: Yes joint tenderness (T12, L3-L5, R/L SI joints) and decreased ROM; no normal posture (flexed antalgia) or normal gait Thoracic/Lumbar Spine: thor and lumb spine abnorm to inspection (sway back), straight leg raise positive bilaterally, Lasegue's sign positive bilaterally, pain with thoraco-lumbar ROM with forward flexion, with rotation to the right and with rotation to the left, thoraco-lumbar ROM limited with forward flexion, paraspinal tenderness (slightly improved) bilaterally in the lower lumbar, thoraco-lumbar spasm bilaterally in the lower lumbar Office Procedures Chiropractic Treatments Procedures Manipulation: 3-4 regions (T12, L3, L5,RIL) Electrical Stimulation: 15 mins Location: Lumbar Traction, Mechanical: Yes Details: Lumbar traction 15 min Assessment AND Plan 1. Segmental and somatic dysfunction of pelvic region M99.05 Orders Orders: 2. Segmental and somatic dysfunction of thoracic region M99.02 Orders Orders: 3. Segmental and somatic dysfunction of lumbar region M99.03 Orders Orders: 4. Anterolisthesis M43.10 Orders Orders: Plan Detail Goals Decrease pain and inflammation Increase ROM Barriers Anterolisthesis Follow Up 2 x week Coding Level of Care Code No Charge Diagnoses Segmental and somatic dysfunction of pelvic region M99.05 Segmental and somatic dysfunction of thoracic region M99.02 Segmental and somatic dysfunction of lumbar region M99.03 Anterolisthesis M43.10 Additional Codes Procedures - Electrical Stimulation: 15 mins (85649) Procedures - Traction, Mechanical: Yes (73087) Procedures - Manipulation: 3-4 regions (26034) 02/26/18 1527 <Electronically signed by Lisa Vaca D.C.> Date Lisa Vaca D.C. Cosigner Signature: Date (if applicable) CC: CHIROPRACTIC REPORT Observed: 02/13/2018 Status: F Source: [place] 10:42 AM [facility] [address] [place] [address] OFFICE VISIT Date of Service: 02/12/18 MR#: [id number] Acct: [id number] Name: MASHA BLAKE Rep #: [id number] : 1955 Provider: Lisa Vaca D.C. Age/Sex: 62/F [place] [facility] [place]: Signed Intake Vital Signs02/12/18 Height 5 ft 3 in 02/12/18 Weight: 171 lb 02/12/18 Body Mass Index (BMI) 30.2 Intake Visit Reasons: back pain Chief Complaint: low back pain Is patient in pain?: Yes [facility] Medical History Anterolisthesis (Chronic) HPI back pain : Chief Complaint: back pain Visit Number: 4 Details: MASHA BLAKE is a 62 year old F who presents with slightly decreased low back pain. She states after her last adjustment she did receive some relief, although the pain has since returned. Today the patient rates her pain a 5/10 and describes it as a sharp shooting ache that radiates across the low back. The patient has since received more injections which have also helped with the pain. At times when Masha is frequently bending she does experience a sharp jolting pain radiating into the L groin with slight burning. Location: low back Duration: constant Aggravating or associated factors: bending, prolonged standing, sitting, and walking Relieving factors: medication and adjustment Pain Quality: aching, dull, cramping, sharp Exam Musc General: Yes joint tenderness (T12, L3-L5, R/L SI joints) and decreased ROM; no normal posture (flexed antalgia) or normal gait Thoracic/Lumbar Spine: thor and lumb spine abnorm to inspection (sway back), straight leg raise positive bilaterally, Lasegue's sign positive bilaterally, pain with thoraco-lumbar ROM with forward flexion, with rotation to the right and with rotation to the left, thoraco-lumbar ROM limited with forward flexion, paraspinal tenderness bilaterally in the lower lumbar, thoraco-lumbar spasm bilaterally in the lower lumbar Office Procedures Chiropractic Treatments Procedures Manipulation: 3-4 regions (T12, L3, L5, RIL) Electrical Stimulation: 15 mins Location: Lumbar Assessment AND Plan 1. Segmental and somatic dysfunction of pelvic region M99.05 Orders Orders: 2. Segmental and somatic dysfunction of thoracic region M99.02 Orders Orders: 3. Segmental and somatic dysfunction of lumbar region M99.03 Orders Orders: 4. Anterolisthesis M43.10 Orders Orders: Plan Detail Additional Comments Reviewed recent lumbar MRI which revealed multiple levels of disc bulge and degenerative changes. Continue with acute care plan. Goals Decrease pain and inflammation Increase ROM Barriers Anterolisthesis Follow Up 1 Week Coding Level of Care Code No Charge Diagnoses Segmental and somatic dysfunction of pelvic region M99.05 Segmental and somatic dysfunction of thoracic region M99.02 Segmental and somatic dysfunction of lumbar region M99.03 Anterolisthesis M43.10 Additional Codes Procedures - Electrical Stimulation: 15 mins (75559) Procedures - Manipulation: 3-4 regions (57964) 02/13/18 1042 <Electronically signed by Lisa Vaca D.C.> Date [facility] Signature: Date (if applicable) CC: CHIROPRACTIC REPORT Observed: 02/12/2018 Status: F Source: [place] 4:14 PM [facility] [address] [place] [address] OFFICE VISIT Date of Service: 02/08/18 MR#: [id number] Acct: [id number] Name: MASHA BLAKE Rep #: [id number] : 1955 Provider: Lisa Vaca D.C. Age/Sex: 62/F [place] [facility] [place] Status: Signed Intake Vital Signs02/08/18 Height 5 ft 3 in 02/08/18 Weight: 171 lb 02/08/18 Body Mass Index (BMI) 30.2 Intake Visit Reasons: back pain Chief Complaint: low back pain Is patient in pain?: Yes [facility] Medical History Anterolisthesis (Chronic) HPI back pain : Chief Complaint: back pain Visit Number: 3 Details: MASHA BLAKE is a 62 year old F who presents with low back pain, she states that after her last visit she was sore but did not notice any decrease in pain. Today Masha rates her pain a 6/10 and describes it as a tight sharp ache that bands across the low back, and slightly radiates into the hip area. She is walking with a cane and states that bending, prolonged standing, and prolonged walking causes severe pain. At times the patient still experiences a severe jolting sensation but does deny any numbness, tingling, or radiculopathy. Mrs. Blake has a follow up appointment with Dr. Sousa later today to discuss meds. Location: low back Duration: constant Aggravating or associated factors: prolonged standing, walking and bending Relieving factors: none Pain Quality: aching, dull, cramping Exam Musc General: Yes joint tenderness (L3-L5, R/L SI joints) and decreased ROM; no normal posture (flexed antalgia) or normal gait Thoracic/Lumbar Spine: thor and lumb spine abnorm to inspection (sway back), straight leg raise positive bilaterally, Lasegue's sign positive bilaterally, pain with thoraco-lumbar ROM with forward flexion, with rotation to the right and with rotation to the left, thoraco-lumbar ROM limited with forward flexion, paraspinal tenderness bilaterally in the lower lumbar, thoraco-lumbar spasm bilaterally in the lower lumbar Office Procedures Chiropractic Treatments Procedures Manipulation: 3-4 regions (T10, L3, RIL) Electrical Stimulation: 15 mins Location: Lumbar Assessment AND Plan 1. Segmental and somatic dysfunction of pelvic region M99.05 Orders Orders: 2. Segmental and somatic dysfunction of thoracic region M99.02 Orders Orders: 3. Segmental and somatic dysfunction of lumbar region M99.03 Orders Orders: 4. Anterolisthesis M43.10 Orders Orders: Plan Detail Additional Comments Recomend lumbar MRI. Goals Decrease pain and inflammation Increase ROM Barriers Anterolisthesis Follow Up 2 x week Coding Level of Care Code No Charge Diagnoses Segmental and somatic dysfunction of pelvic region M99.05 Segmental and somatic dysfunction of thoracic region M99.02 Segmental and somatic dysfunction of lumbar region M99.03 Anterolisthesis M43.10 Additional Codes Procedures - Electrical Stimulation: 15 mins (58788) Procedures - Manipulation: 3-4 regions (35242) 02/12/18 1614 <Electronically signed by Lisa Vaca D.C.> Date Lisa Vaca D.C. Cosigner Signature: Date (if applicable) CC: SPINE LUMBAR Observed: 02/09/2018 Status: F Source: KATHERINE (ROUTINE) 7:43 AM [facility] [place] RE[facility] Imaging Services [address] [place] [address] Spine Lumbar (Routine) MR#: [id number] Acct: [id number] Name: MASHA BLAKE Rep #: [id number] : 1955 F 62 From: Kenisha Mann MD PCP: Dick Sousa MD, Chi Status: REG CLI Study: Spine Lumbar (Routine) Date of Exam: 02/09/18 Exam# [id number] Ordering Dr: Dick Sousa MD STUDY: MRI LUMBAR SPINE WITHOUT CONTRAST REASON FOR EXAM: Female, 62 years old. Low back pain with bilateral leg weakness since beginning of January. TECHNIQUE: Standardized fat and water weighted pulse sequences were obtained in the sagittal and axial planes. COMPARISON: Radiographs of the lumbar spine dated January 18, 2018. FINDINGS: T11-T12: There is narrowing of the disc. There may be a broad central disc protrusion. There is thickening of ligamentum flavum which appears to contribute to moderate acquired canal stenosis and possible impingement of the spinal cord at this level. Neural foramina appear to be patent. T12-L1: There is narrowing of the disc. The neural foramina are patent. There is no significant central acquired canal stenosis. Normal lumbar lordosis. There is no substantial scoliosis. Normal conus medullaris that terminates at the L1-2 level. L1-2: Normal endplates. Normal disc height, signal and morphology. Normal bilateral facet joints. Normal central canal and bilateral lateral recesses. Normal bilateral intervertebral neural foramina. There is abnormal T1 and T2 hyperintensity within the L1 and L2 vertebral bodies that suppresses on the STIR images suggesting this probably represents some fatty infiltration of the marrow. L2-3: There is mild annular disk bulge and osteophyte complex. There is mild degenerative arthropathy of the facet joints. Bilateral neuroforamina are narrowed without MR evidence for nerve impingement. There is no significant central canal stenosis. L3-4: There is mild annular disk bulge and osteophyte complex. There is mild degenerative arthropathy of the facet joints. Bilateral neuroforamina are narrowed without MR evidence for nerve impingement. There is no significant central canal stenosis. L4-5: There is mild annular disk bulge and osteophyte complex. There is mild degenerative arthropathy of the facet joints. Bilateral neuroforamina are narrowed without MR evidence for nerve impingement. There is no significant central canal stenosis. L5-S1: There is a grade 1 anterolisthesis at this level with uncovering of the disc. There are severe degenerative arthropathy of facet joints. Neural foramina are bilaterally narrowed with potential impingement of the right L5 nerve root at the neural foramen. There is mild central acquired canal stenosis. There is a increased signal within the sacrum that probably represents fatty infiltration of the marrow.. There is abnormal T1 and T2 hyperintensity within the L2, L3, L4 and L5 vertebral bodies that suppresses with fat suppression suggesting fatty infiltration of the marrow. Normal visualized paraspinous soft tissue structures. MRI/Spine Lumbar (Routine) IMPRESSION: 1. Multilevel degenerative disc disease and degenerative arthropathy of the lumbar spine with acquired canal stenosis, neural foraminal narrowing and potential nerve impingement, as described. 2. Multiple foci of abnormal signal within the vertebral bodies that probably represents fatty infiltration of the marrow. 3. Grade 1 anterolisthesis at L5-S1. Electronically Signed: Kenisha Mann MD at 8:31 EDT , Service support , CC: Dick Sousa MD Street Inspector: Signed CHIROPRACTIC REPORT Observed: 02/08/2018 Status: F Source: [place] 9:26 AM [facility] [address] [place] [address] OFFICE VISIT Date of Service: 02/07/18 MR#: [id number] Acct: [id number] Name: MASHA BLAKE Rep #: [id number] : 1955 Provider: Lisa Vaca D.C. Age/Sex: 62/F [place] [facility]: Signed Intake Vital Signs02/07/18 Height 5 ft 3 in 02/07/18 Weight: 171 lb 02/07/18 Body Mass Index (BMI) 30.2 Intake Visit Reasons: Low back pain Is patient in pain?: Yes [facility] Medical History Anterolisthesis (Chronic) HPI Low back pain : Chief Complaint: low back pain Visit Number: 2 Details: MASHA BLAKE is a 62 year old F who presents with low back pain. She presents with an abnormal gait and seems very painful when sitting/standing. Today the patient rates her pain a 5/10 and describes it as sharp ache that stays localized to the middle of the low back. She denies any numbness, tingling or radiculopathy. At its worst Masha rates her pain a 10/10 describing a sharp jolting sensation in the middle of the low back. Bending, lifting, prolonged walking, standing and transitioning to standing causes increased pain. Location: Low back Duration: constant Aggravating or associated factors: bending, lifting, prolonged standing and sitting Relieving factors: none Pain Quality: aching, dull, sharp, radiating Exam Musc General: Yes joint tenderness (L3-L5, R/L SI joints) and decreased ROM; no normal posture (flexed antalgia) or normal gait Thoracic/Lumbar Spine: thor and lumb spine abnorm to inspection (sway back), straight leg raise positive bilaterally, Lasegue's sign positive bilaterally, pain with thoraco-lumbar ROM with forward flexion, with rotation to the right and with rotation to the left, thoraco-lumbar ROM limited with forward flexion, paraspinal tenderness bilaterally in the lower lumbar, thoraco-lumbar spasm bilaterally in the lower lumbar Office Procedures Chiropractic Treatments Procedures Manipulation: 3-4 regions (T11, L3, L5, RIL) Assessment AND Plan 1. Segmental and somatic dysfunction of thoracic region M99.02 Orders Orders: 2. Segmental and somatic dysfunction of lumbar region M99.03 Orders Orders: 3. Anterolisthesis M43.10 Orders Orders: 4. Segmental and somatic dysfunction of pelvic region M99.05 Plan Detail Additional Comments Patient is following up with pain management later today. Flex/Ext imaging confirmed stable anterolisthesis. MRI recommended to rule out disc herniation at L5-S1. Goals Decrease pain and inflammation Increase ROM Barriers Anterolisthesis Follow Up 1 Week Coding Level of Care Code No Charge Diagnoses Segmental and somatic dysfunction of thoracic region M99.02 Segmental and somatic dysfunction of lumbar region M99.03 Anterolisthesis M43.10 Segmental and somatic dysfunction of pelvic region M99.05 Additional Codes Procedures - Manipulation: 3-4 regions (73261) 02/08/18 0926 <Electronically signed by Lisa Vaca D.C.> Date Lisa Vaca D.C. Cosigner Signature: Date (if applicable) CC: CHIROPRACTIC REPORT Observed: 02/06/2018 Status: F Source: [place]UN[place] 2:15 PM [facility] [address] [place] [address] OFFICE VISIT Date of Service: 02/05/18 MR#: [id number] Acct: [id number] Name: MASHA BLAKE Rep #: [id number] : 1955 Provider: Lisa Vaca D.C. Age/Sex: 62/F [place] [facility] [place]: Signed Intake Vital Signs02/05/18 Weight: 171 lb 02/05/18 Blood Pressure 160/90 02/05/18 Blood Pressure Location Rt brachial 02/05/18 Blood Pressure Position Sitting Intake Visit Reasons: [facility] History Anterolisthesis (Chronic) HPI LOW BACK PAIN: Chief Complaint: low back pain Visit Number: 1 Referral source: Dr. Sousa Details: MASHA BLAKE is a 62 year old F here today for low back pain. She rates her pain a 10/10 at times. Currently her pain is at a 4/5, and feel like jolts/shocks. The pain stops her in her tracks. The pain stays centralized in the middle of her low back and does not radiate into her lower extremities. Masha doesn't remember any injury that could've attributed to her discomfort. She has been experiecing pain for a long time, however recently it has increased. She presented to Dr. Sousa for evaluation and he ordered lumbar xrays. She has decided to follow up with adult care provider. Onset: 01/15/18 Location: low back Duration: intermittent Aggravating or associated factors: bending, lifting, walking Relieving factors: None Pain Quality: sharp Current Sensation: other (shock/jolt) Exam Musc General: Yes normal posture, normal gait, joint tenderness (L3-L5, R/L SI joints) and decreased ROM Thoracic/Lumbar Spine: thor and lumb spine abnorm to inspection (sway back), straight leg raise positive bilaterally, Lasegue's sign positive bilaterally, pain with thoraco-lumbar ROM with forward flexion, with rotation to the right and with rotation to the left, thoraco-lumbar ROM limited with forward flexion, paraspinal tenderness bilaterally in the lower lumbar, thoraco-lumbar spasm bilaterally in the lower lumbar Neuro General: alert, awake, oriented x3, gait normal, normal light touch, pain and propioception, no focal motor deficits, deep tendon reflexes 2+ bilaterally (lower extremity) Ortho Test CERVICAL THORACIC LUMBAR Kemps: Positive (bilaterally) Valsalvas: Positive SLR: Positive Iliac Compression: Positive (bilaterally) Assessment AND Plan 1. Segmental and somatic dysfunction of thoracic region M99.02 2. Segmental and somatic dysfunction of lumbar region M99.03 3. Segmental and somatic dysfunction of pelvic region M99.05 4. Anterolisthesis M43.10 Plan Recommend flex/ext and oblique lumbar xrays to confirm stability in anterolisthesis. Orders Orders: Plan Detail Goals Decrease pain and inflammation Increase ROM Barriers Anterolisthesis Follow Up 3x/wk Coding Level of Care Code Off vis,new,level 3 Diagnoses Segmental and somatic dysfunction of thoracic region M99.02 Segmental and somatic dysfunction of lumbar region M99.03 Segmental and somatic dysfunction of pelvic region M99.05 Anterolisthesis M43.10 02/06/18 4595 <Electronically signed by Lisa Vaca D.C.> Date Lisa Vaca D.C. Cosigner Signature: Date (if applicable) CC: BASIC METABOLIC Collected: 01/18/2018 Status: F Source: KATHERINE PROFILE (BMP) 2:16 PM [facility] REPOSITORY TYPE CODE TESTS RESULT OUT OF RANGE REFERENCE UNITS LAB L501.0100 74-106 mg/dL Normal GLU 89 Result Comment: Please note revised GLUCOSE reference range effective 2017. LAB L501.1000 7-18 mg/dL Normal BUN 13 LAB L501.1100 0.55-1.02 mg/dL Normal CREAT,SERUM 0.85 Result Comment: The validity of the calculated GFR AND GFRAA in patients over 70 years has not been determined. Clinical correlation is essential. LAB L501.1110 >60 mL/min Normal EST GFR 72 Result Comment: Non- GFR Calc LAB L501.1115 >60 mL/min Normal EST GFR - AA 87 Result Comment: GFR Calc LAB L501.1300 10-20 RATIO Normal BUN/CRE 15.3 LAB L501.2200 8.5-10.1 mg/dL CA Normal 9.1 LAB L501.5300 136-145 mmol/L NA Normal 138 LAB L501.5600 3.5-5.1 mmol/L K Normal 3.8 LAB L501.5900 98-107 mmol/L CL Normal 101 LAB L501.6100 21.0-32.0 mmol/L Normal CO2 29.0 LAB L501.6200 5-15 Normal GAP 8 Performed By: #### L500.2500 #### [facility] [address] [place], [address] LUMBAR SPINE 2 OR 3 Observed: 01/18/2018 Status: F Source: KATHERNIE VIEWS 2:00 PM [facility] REPOSITORY [facility] Imaging Services [address] [place] [address] Lumbar Spine 2 or 3 Views MR#: [id number] Acct: [id number] Name: MASHA BLAKE Rep #: [id number] : 1955 F 62 From: Jacinto Hong DO PCP: Lars LOVE,Dick Liao Status: REG CLI Study: Lumbar Spine 2 or 3 Views Date of Exam: 01/18/18 Exam# [id number] Ordering Dr: Dick Sousa MD STUDY: X-RAY - LUMBAR SPINE REASON FOR EXAM: Female, 62 years old. Low back pain TECHNIQUE: 3 view(s) of the lumbar spine were obtained. COMPARISON: 06/17/2014 FINDINGS: Normal lumbar lordosis. There is no substantial scoliosis. Grade 1 anterolisthesis of L5 on S1 with probable chronic pars defects. There is multilevel endplate spondylosis of the lumbar vertebrae. There is multi-level degenerative disc disease with multi-level disc space narrowing. There is no demonstrated fracture. The soft tissue structures are unremarkable. RAD/Lumbar Spine 2 or 3 Views IMPRESSION: Degenerative changes of the spine, as detailed above. Electronically Signed: Jacinto Hong DO at 13:45 EDT Tel , Service support , CC: Dikc Sousa MD Street Inspector: Signed LIPID PROFILE Collected: 12/15/2017 Status: F Source: KATHERINE 12:34 PM [facility] REPOSITORY TYPE CODE TESTS RESULT OUT OF RANGE REFERENCE UNITS LAB L501.4900 200 mg/dL High CHOL 243 Result Comment: <200 mg/dL Desirable 200-240 mg/dL Borderline >240 mg/dL High Risk LAB L501.5000 mg/dL Normal TRIG 107 Result Comment: The drugs N-Acetylcysteine and Metamizole may falsely depress this assay. Serum Triglycerides Reference Interval Normal <150 mg/dL Borderline high 150 - 199 mg/dL High 200 - 499 mg/dL Very High > or = 500 mg/dL LAB L501.6400 mg/dL Normal HDL 65 Result Comment: The drugs N-Acetylcysteine and Metamizole may falsely depress this assay. Reference Range HDL <40 mg/dL Low HDL Cholesterol HDL >or= 60 mg/dL High HDL Cholesterol LAB L501.6500 0-130 mg/dL High LDL 157 LAB L501.6600 5-40 mg/dL Normal VLDL 21 Performed By: #### L500.4100, L501.1400, L501.9520 #### [facility] [address] [place], [address] URIC ACID Collected: 12/15/2017 Status: F Source: KATHERINE 12:34 PM [facility] REPOSITORY TYPE CODE TESTS RESULT OUT OF RANGE REFERENCE UNITS LAB L501.1400 2.6-6.0 mg/dL Normal URIC 5.1 Result Comment: The drugs N-Acetylcysteine and Metamizole may falsely depress this assay. Performed By: #### L500.4100, L501.1400, L501.9520 #### [facility] [address] [place], [place], [id number] THYROID STIM HORMONE Collected: 12/15/2017 Status: F Source: KATHERINE (TSH) 12:34 PM [facility] REPOSITORY TYPE CODE TESTS RESULT OUT OF RANGE REFERENCE UNITS LAB L501.9520 0.358-3.74 uIU/mL Normal TSH 1.48 Performed By: #### L500.4100, L501.1400, L501.9520 #### [facility] [address] [place], [place], [address] VITAMIN D,25 HYDROXY Collected: 12/15/2017 Status: F Source: KATHERINE 12:34 PM [facility] REPOSITORY TYPE CODE TESTS RESULT OUT OF RANGE REFERENCE UNITS LAB L506.1000 29.95-100.01 ng/mL Normal Vitamin D 60.2 25-OH Result Comment: Vitamin D 25(OH) Status Range Deficiency <20 ng/mL (50nmol/L) Insuffciency 20 - 30 ng/mL (50 - 75 nmol/L) Sufficiency 30 - 100 ng/mL (75 - 250 nmol/L) Toxicity >100 ng/mL (>250 nmol/L) Performed By: #### L506.1000 #### [facility] [address] [place], [place], [id number] HEPATITIS C ANTIBODIES Collected: 12/15/2017 Status: F Source: KATHERINE 12:34 PM [facility] REPOSITORY TYPE CODE TESTS RESULT OUT OF RANGE REFERENCE UNITS LAB L3100.0650 0.0-0.9 s/co ratio Normal HEP C AB <0.1 Result Comment: Negative: < 0.8 Indeterminate: 0.8 - 0.9 Positive: > 0.9 The CDC recommends that a positive HCV antibody result be followed up with a HCV Nucleic Acid Amplification test (813602). Performed at: - [facility] [id number] Stopper Grinder: Jai Israel PhD, Phone: [phone] Performed By: #### L3100.0625 #### [facility] (refer to report for specific site) refer to report for address and phone number CBC W/DIFF, AUTOMATED Collected: 12/14/2017 Status: F Source: KATHERINE 1:29 PM [facility] REPOSITORY TYPE CODE TESTS RESULT OUT OF RANGE REFERENCE UNITS LAB L100.1000 4.4-11.0 K/mm3 Normal WBC 6.4 LAB L100.1200 4.2-5.4 M/mm3 Normal RBC 4.53 LAB L100.1300 12.0-15.0 g/dl Normal HGB 12.8 LAB L100.1400 37-47 % Normal HCT 40.9 LAB L100.1500 81-99 fL Normal MCV 90.3 LAB L100.1600 27.0-32.0 pg Normal MCH 28.3 LAB L100.1700 32-36 g/gl Low MCHC 31.3 LAB L100.1810 11.6-14.6 % Normal RDW CV 13.2 LAB L100.1820 35.1-43.9 fl Normal RDW SD 43.5 LAB L100.1900 150-450 K/mm3 Normal PLT 329 LAB L100.2000 6.2-12.0 fl Normal MPV 10.2 LAB L100.2100 47-70 % Normal NEUT% 63.1 LAB L100.2200 19-41 % Normal LY% 26.0 LAB L100.2300 0-10 % Normal MONO% 7.9 LAB L100.2400 0-5 % Normal EO% 1.9 LAB L100.2500 0-1 % Normal BASO% 0.9 LAB L100.2550 0.0-0.9 % Normal IM GRAN % 0.200 Result Comment: IG% - Immature Granulocytes (promyelocytes, myelocytes and metamyelocytes) > 1% indicates that a LEFT SHIFT is Present. LAB L100.2620 2.0-7.7 X10 3/uL Normal Absolute Neut 4.0 LAB L100.2720 0.83-4.51 X10 3/ul Normal Absolute Lymph 1.65 Performed By: #### L100.0100 #### [facility] [address] [place], [place], [address] BASIC METABOLIC Collected: 12/14/2017 Status: F Source: [place] PROFILE (BMP) 1:29 PM [facility] REPOSITORY TYPE CODE TESTS RESULT OUT OF RANGE REFERENCE UNITS LAB L501.0100 74-106 mg/dL Normal GLU 87 Result Comment: Please note revised GLUCOSE reference range effective 2017. LAB L501.1000 7-18 mg/dL Normal BUN 11 LAB L501.1100 0.55-1.02 mg/dL Normal CREAT,SERUM 0.73 Result Comment: The validity of the calculated GFR AND GFRAA in patients over 70 years has not been determined. Clinical correlation is essential. LAB L501.1110 >60 mL/min Normal EST GFR 86 Result Comment: Non- GFR Calc LAB L501.1115 >60 mL/min Normal EST GFR - AA 105 Result Comment: GFR Calc LAB L501.1300 10-20 RATIO Normal BUN/CRE 15.1 LAB L501.2200 8.5-10.1 mg/dL CA Normal 9.1 LAB L501.5300 136-145 mmol/L NA Normal 138 LAB L501.5600 3.5-5.1 mmol/L K Normal 4.1 LAB L501.5900 98-107 mmol/L CL Normal 101 LAB L501.6100 21.0-32.0 mmol/L Normal CO2 31.0 LAB L501.6200 5-15 Normal GAP 6 Performed By: #### L500.2500 #### [facility] [address] [facility] [address] [place], [place], [address] ALLERGIES ALLERGIES No Allergies Records FoundENCOUNTERS ENCOUNTERS ADMIT/DISCHARGE ACCOUNT NUMBER ADMITTING ENCOUNTER LOCATION SOURCE CLASS 11/01/2018 [id number] Ambulatory [facility] Hospital ding:[facility]S Repository 10/30/2018 [id number] Ambulatory [facility] Hospital ding:LAB Repository 10/10/2018 [id number] Ambulatory [facility] ding:PSN Repository 09/14/2018 [id number] Ambulatory [facility] WSDSRoom: 2B System WSDSBed: Repository [id number] 07/20/2018 [id number] Ambulatory [facility] ding:MTLAB Repository 06/22/2018 [id number] Ambulatory [facility] ding:POLAB3 Repository 06/06/2018 [id number] Ambulatory [facility] ding:LAB Repository 05/10/2018 [id number] Ambulatory BMSBuilding: [place] BMS.[facility] Repository 05/04/2018 [id number] Ambulatory [facility] ding:MTLAB Repository 04/05/2018/04/05/20 [id number] Ambulatory BMSBuilding: [place] 18 BMS.[facility] Repository 04/03/2018 [id number] Ambulatory [facility] ding:PSN Repository 03/22/2018 [id number] Ambulatory BMSBuilding: [place] BMS.[facility] Repository 03/15/2018/03/15/20 [id number] Ambulatory BMSBuilding: [place] 18 BMS.[facility] Repository 03/14/2018 [id number] Ambulatory BMSBuilding: [place] BMS.[facility] Repository 03/07/2018 [id number] Ambulatory BMSBuilding: [place] BMS.[facility] Repository 03/06/2018/03/06/20 [id number] Ambulatory BMSBuilding: [place] 18 BMS.[facility] Repository 03/05/2018/03/05/20 [id number] Ambulatory BMSBuilding: [place] 18 BMS.[facility] Repository 03/01/2018/03/01/20 [id number] Ambulatory BMSBuilding: [place] 18 BMS.[facility] Repository 02/27/2018/02/28/20 [id number] Ambulatory BMSBuilding: [place] 18 BMS.[facility] Repository 02/26/2018/02/27/20 [id number] Ambulatory BMSBuilding: [place] 18 BMS.[facility] Repository 02/22/2018 [id number] Ambulatory BMSBuilding: [place] BMS.[facility] Repository 02/20/2018 [id number] Ambulatory BMSBuilding: [place] BMS.[facility] Repository 02/12/2018/02/13/20 [id number] Ambulatory BMSBuilding: [place] 18 BMS.[facility] Repository 02/09/2018 [id number] Ambulatory [facility] ding:MRI Repository 02/08/2018/02/09/20 [id number] Ambulatory BMSBuilding: [place] 18 BMS.[facility] Repository 02/07/2018/02/08/20 [id number] Ambulatory BMSBuilding: [place] 18 BMS.[facility] Repository 02/05/2018 [id number] Ambulatory [facility] ding:MTRAD Repository 02/05/2018/02/06/20 [id number] Ambulatory BMSBuilding: [place] 18 BMS.[facility] Repository 01/18/2018 [id number] Ambulatory [facility] ding:RAD Repository 12/15/2017 [id number] Ambulatory [facility] ding:POLAB3 Repository 12/14/2017 [id number] Ambulatory [facility] ding:POLAB3 Repository PAYERS PAYERS ENCOUNTER GUARANTOR PAYER SUBSCRIBER SOURCE 11/01/2018 GERSON Murphy [id number] ZENON Insurance:ANTHEMPolic [place]OB: [place] Number: [id number] Hospital 79596Lkl: (931) [id number] Repository [phone] () Date:9576-56-09VU [address] [place] [address]EJ: 11/01/2018 Secondary NOT GIVENUNK [place] Insurance:SELF PAY [facility] Number: Effective Repository Date:2018-10-30 10/30/2018 GERSON MORSE J [place] [id number] ZENON Insurance:ANTHEMPolic MORSEDOB: [place] Number: [id number] Hospital 37487Ifz: (330) [id number] Repository [phone] (HP) Date:1830-95-52LD [address], [place] [address]UG: 10/30/2018 Secondary NOT GIVENUNK [place] Insurance:SELF PAY [facility] Number: Effective Repository Date:2018-10-30 10/10/2018 GERSON Dillard Primary GERSON Osborneoster [id number] ZENON Insurance:ANTHEMPolic M[place]EDOB: [place] Number: [id number] Hospital 826[address]Ewm: (330) [id number] Repository [phone] (HP) Date:7395-84-19HM [address] [place] [address]WP: 10/10/2018 Secondary NOT GIVENUNK [place] Insurance:SELF PAY [facility] Number: Effective Repository Date:2018-10-10 09/14/2018 Masha MorseDOB: Primary Gerson Gilma [facility] Insurance:Kirvin Blue MorseDOB: [place] [employer] [id number] [place]note 2[facility] Number: [id number]: (330) Effective Date: [phone] (HP) 07/20/2018 GERSON Dillard Primary GERSON [address] [id number] ZENON Insurance:ANTHEMPolic [place]EDOB: [place] Number: [id number] Hospital 57[address]Mpc: (330) [id number] Repository [phone] (HP) Date:3044-14-84KD [address] [place] [address] [place] [address]PN: 07/20/2018 Secondary NOT GIVENUNK [place] Insurance:SELF PAY [facility] Number: Effective Repository Date:2018-07-20 06/22/2018 Gerson Blake116 Primary Gerson CortesDOB: [place]ENON Insurance:ANTHEMPolic [id number] Number: Hospital [address]Sbs: (330) [id number] Repository [phone] (HP) Date:3407-39-35DR [address], [place] [address]RZ: 06/22/2018 Secondary NOT GIVENUNK [place] Insurance:SELF PAY [facility] Number: Effective Repository Date:2018-06-22 06/06/2018 Gersonhugo Morales Primary Gerson EncarnacionB: [place] ZENON Insurance:ANTHEMPolic [id number] Number: Hospital [address]Lsd: (330) [id number] Repository [phone] (HP) Date:8384-62-65NK [address]KJKRGKO, [place] [address]BM: 06/06/2018 Secondary NOT GIVENUNK [place] Insurance:SELF PAY [facility] Number: Effective Repository Date:2018-06-06 05/10/2018 Gersonhugo Morales Primary Gerson EncarnacionB: [place] ZENON Insurance:ANTHEMPolic [id number] Number: Hospital [address]Ril: (330) [id number] Repository [phone] (HP) Date:9487-73-46HU [address]IUWUWNN, [place] [address]MI: 05/10/2018 Secondary NOT GIVENUNK [place] Insurance:SELF PAY [facility] Number: Effective Repository Date:2018-04-05 05/04/2018 Gerson Moraels Primary Gerson EncarnacionB: [place] ZENON Insurance:ANTHEMPolic [id number] Number: Hospital [address]Lzc: (330) [id number] Repository [phone] (HP) Date:2410-54-27JY [address]MSVSZCH, [place] [address]QX: 05/04/2018 Secondary NOT GIVENUNK [place] Insurance:SELF PAY [facility] Number: Effective Repository Date:2018-05-04 04/05/2018 Gerson Morales Primary Gerson EncarnacionB: [place] ZENON Insurance:ANTHEMPolic [id number] [place] Number: Hospital [address]Cvy: (330) [id number] Repository [phone] (HP) Date:2176-51-01AF [address]AMKXVRA, [place] [address]DQ: 04/05/2018 Secondary NOT GIVENUNK [place] Insurance:SELF PAY [facility] Number: Effective Repository Date:2018-04-05 04/03/2018 Gerson Morales Primary Gerson BlakeDOB: [place] ZENON Insurance:ANTHEMPolic [id number] [place] Number: Hospital [address]Ddg: (330) [id number] Repository [phone] (HP) Date:8382-15-86CO [address]UMNEI, [place] [address]MD: 04/03/2018 Secondary NOT GIVENUNK [place] Insurance:SELF PAY [facility] Number: Effective Repository Date:2018-04-03 03/22/2018 Gerson Morales Primary Gerson BlakeDOB: [place] ZENON Insurance:ANTHEMPolic [id number] [place] Number: Hospital [address]Esl: (330) [id number] Repository [phone] (HP) Date:7865-83-81HW [address]PFRQPQG, [place] [address]JO: 03/22/2018 Secondary NOT GIVENUNK [place] Insurance:SELF PAY [facility] Number: Effective Repository Date:2018-03-15 03/15/2018 Gerson Morales Primary Gerson EncarnacionB: [place] ZENON Insurance:ANTHEMPolic [id number] Number: Hospital [address]Kog: (330) [id number] Repository [phone] (HP) Date:0377-33-26MI [address]LLSSVDJ, [place] [address]UF: 03/15/2018 Secondary NOT GIVENUNK [place] Insurance:SELF PAY [facility] Number: Effective Repository Date:2018-03-15 03/14/2018 Gerson Morales Primary Gerson EncarnacionB: [place] ZENON Insurance:ANTHEMPolic [id number] Number: Hospital [address]Bzf: (330) [id number] Repository [phone] (HP) Date:0131-23-85XJ [address] [address]DI: 03/14/2018 Secondary NOT GIVENUNK [place] Insurance:SELF PAY [facility] Number: Effective Repository Date:2018-02-27 03/07/2018 Gerson Morales Primary Gerson EncarnacionB: [place] ZENON Insurance:ANTHEMPolic [id number] Number: Hospital [address]Cmq: (330 [id number] Repository [phone] (HP) Date:6103-53-10FZ [address] [address]VB: 03/07/2018 Secondary NOT GIVENUNK [place] Insurance:SELF PAY [facility] Number: Effective Repository Date:2018-02-27 03/06/2018 Gerson Morales Primary Gerson EncarnacionB: [place] Z[place] Insurance:ANTHEMPolic [id number] Number: Hospital [address]Ipe: (330) [id number] Repository [phone] (HP) Date:3829-04-66HB [address]LFNNBHHRA[address] LONG [address]LD: 03/06/2018 Secondary NOT GIVENUNK [place] Insurance:SELF PAY [facility] Number: Effective Repository Date:2018-03-06 03/05/2018 Gerson Morales Primary Gerson EncarnacionB: [place] ZENON Insurance:ANTHEMPolic [id number] Number: Hospital [address]Kxx: (330) [id number] Repository [phone] (HP) Date:5127-25-45PA [address] [address]LJ: 03/05/2018 Secondary NOT GIVENUNK [place] Insurance:SELF PAY [facility] Number: Effective Repository Date:2018-03-05 03/01/2018 Gerson Morales Primary Gerson EncarnacionB: [place] ZENON Insurance:ANTHEMPolic [id number] [place] Number: Hospital [id number]: (330 [id number] Repository [phone] () Date:8384-70-33HB [address] [address]M: 03/01/2018 Secondary NOT GIVENUNK [place] Insurance:SELF PAY [facility] Number: Effective Repository Date:2018-03-01 02/27/2018 Gerson Morales Primary Gerson EncarnacionB: [place] ZENON Insurance:ANTHEMPolic [id number] [place] Number: Hospital [address]Ned: (330) [id number] Repository [phone] () Date:3592-06-57EN [facility] [address] [place] [address]XI: 02/27/2018 Secondary NOT GIVENUNK [place] Insurance:SELF PAY [facility] Number: Effective Repository Date:2018-02-27 02/26/2018 Gerson Morales Primary Gerson EncarnacionB: [place] ZENON Insurance:ANTHEMPolic [id number] [place] Number: Hospital [id number]: (330) [id number] Repository [phone] () Date:9377-13-57AO [address] [address]BI: 02/26/2018 Secondary NOT GIVENUNK [place] Insurance:SELF PAY [facility] Number: Effective Repository Date:2018-02-26 02/22/2018 Gerson Morales Primary Gerson EncarnacionB: [place] ZEN[place] Insurance:ANTHEMPolic [id number] [place] Number: Hospital [address]Htn: (330) [id number] Repository [phone] () Date:3477-23-73JK [address]SGEKRQQ, [place] [address]BE: 02/22/2018 Secondary NOT GIVENUNK [place] Insurance:SELF PAY [facility] Number: Effective Repository Date:2018-02-12 02/20/2018 Gerson Morales Primary Gerson BlakeDOB: Ellsworth ZENON Insurance:[employer]HE[id number] Hospital [id number]: (330) [id number] Repository [phone] () Date:5702-41-49WD [address]JJGRPGO, [place] [address]IC: 02/20/2018 Secondary NOT GIVENUNK [place] Insurance:SELF PAY [facility] Number: Effective Repository Date:2018-02-12 02/12/2018 Gerson Morales Primary Gerson BlakeDOB: Katherine ZENON Insurance:[place]HE[employer]olic [id number] Number: [facility] [id number]: (330 [id number] Repository [phone] () Date:8504-36-09CP [address]ZMVIFEY, [place] [address]AA: 02/12/2018 Secondary NOT GIVENUNK Katherine Insurance:SELF PAY [facility] Number: Effective Repository Date:2018-02-12 02/09/2018 Gerson Morales Primary Gerson EncarnacionB: Katherine ZENON Insurance:[place]HE[id number] Number[place] Hospital [id number]: (330 [id number] Repository [phone] () Date:2402-94-31TV [address]NQMNLDS, [place] [address]CC: 02/09/2018 Secondary NOT GIVENUNK [place] Insurance:SELF PAY [facility] Number: Effective Repository Date:2018-02-08 02/08/2018 Gerson Morales Primary Gerson BlakeDOB: Katherine ZENON Insurance:ANTHE[employer]olic [id number] Number[place] Hospital [id number]: (330) [id number] Repository [phone] (HP) Date:2399-27-80SX [address] [address]OP: 02/08/2018 Secondary NOT GIVENUNK [place] Insurance:SELF PAY [facility] Number: Effective Repository Date:2018-02-08 02/07/2018 Gersonhugo Morales Primary Gerson BlakeDOB: Katherine ZENON Insurance:[place] [id number] Number[place] Hospital [id number]: (330) [id number] Repository [phone] (HP) Date:5272-21-29ZZ [address] [address]MS: 02/07/2018 Secondary NOT GIVENUNK Katherine Insurance:SELF PAY [facility] Number: Effective Repository Date:2018-02-07 02/05/2018 Gerson [id number] Primary Gerson EncarnacionB: [place] ZENON Insurance:[employer] [id number] Hospital [id number]: (330) [id number] Repository [phone] (HP) Date:7987-33-63TR [address]NZBBARVRA[address] LONG [address]YL: 02/05/2018 Secondary NOT GIVENUNK Katherine Insurance:SELF PAY [facility] Number: Effective Repository Date:2018-02-05 02/05/2018 Gersonhugo Morales Primary Gerson EncarnacionB: Katherine ZENON Insurance:[employer] [id number] Number[place] Hospital [id number]: (330) [id number] Repository [phone] (HP) Date:0344-50-64JV [address]JWJTXZR[address]AE[address] LONG [address]AA: 02/05/2018 Secondary NOT GIVENUNK Katherine Insurance:SELF PAY [facility] Number: Effective Repository Date:2018-02-05 01/18/2018 Gersonhugo Morales Primary Gerson EncarnacionB: Ellsworth ZENON Insurance:[employer]HE[employer]olic [id number] [place] Number: Hospital [id number]: (330) [id number] Repository [phone] () Date:1556-91-29KS [address]CDXFZPW, [place] [address]DW: 01/18/2018 Secondary NOT GIVENUNK [place] Insurance:SELF PAY [facility] Number: Effective Repository Date:2018-01-18 12/15/2017 Gerson [id number] Primary Gerson EncarnacionB: Ellsworth ZENON Insurance:[employer]HE[employer]olic [id number] [place] Number: Hospital [id number]: (330) [id number] Repository [phone] () Date:2885-73-50KU [address]PTMVZEG, [place] [address]XD: 12/15/2017 Secondary NOT GIVENUNK Katherine Insurance:SELF PAY [facility] Hospital Number: Effective Repository Date:2017-12-15 12/14/2017 Gerson [id number] Primary Gerson EncarnacionB: Ellsworth ZENON Insurance:[employer]HE[employer] [id number] [place] Number: Hospital [id number]: (330) [id number] Repository [phone] () Date:8519-00-01KH [address]JWMVSHT [place] [address]HV: 12/14/2017 Secondary NOT GIVENUNK Katherine Insurance:SELF PAY [facility] Number: Effective Repository Date:2017-12-14
== END ==
PROVIDERS: Family Provider Family Medicine Geriatric Medicine; PCP Family Medicine Geriatric Medicine; Referring Provider Family Medicine Geriatric Medicine; Visit Provider Family Medicine Geriatric Medicine
DX: Z01.818 Encounter for other preprocedural examination (principal); R94.31 Abnormal electrocardiogram [ECG] [EKG]
CPT/HCPCS: 78452; 93017; A9500; A4216; J2785

== ENCOUNTER → 2018-12-26 16:11 | Outpatient (CLI) | payer MEDICAID, SELFPAY ==
[2018-04-05 17:23] VITALS: BMI 30.2
[2018-12-26 17:15] LABS: Absolute Lymphocyte Count 1.87 X10^3/ul (0.83-4.51); Basophil# 0.07 X10^3/uL; Basophil% 0.9 % (0-1); Eosinophil# 0.16 X10^3/uL; Eosinophils% 2.1 % (0-5); Hematocrit 39.3 % (37-47); Hemoglobin 11.9 g/dl (12.0-15.0); Lymphocyte # 1.87 X10^3/ul (4.0); Lymphocyte % 24.4 % (19-41); Mean Corp Hgb Conc 30.3 g/gl (32-36); Mean Corpuscular Hgb 26.7 pg (27.0-32.0); Mean Corpuscular Volume 88.1 fL (81-99); Mean Platelet Vol. 10.1 fl (6.2-12.0); Monocyte# 0.52 X10^3/uL; Monocyte% 6.8 % (0-10); Neutrophil # 5.02 X10^3/uL (2.7-7.7); Neutrophil % 65.7 % (47-70); Platelet Count 432 K/mm3 (150-450); RBC Distribution Width CV 13.7 % (11.6-14.6); RBC Distribution Width SD 43.2 fl (35.1-43.9); Red Blood Count 4.46 M/mm3 (4.2-5.4); White Blood Count 7.7 K/mm3 (4.4-11.0)
[2018-12-26 17:18] LABS: POSITIVE COUNT NO; POSITIVE DIFFERENTIAL NO; POSITIVE MORPHOLOGY NO
[2018-12-26 17:43] LABS: Vitamin D,25 Hydroxy 61.4 ng/mL (29.95-100.01)
[2018-12-26 17:47] LABS: ALB/GLOB Ratio 1.2 RATIO (0.9-2.4); AST(SGOT) 21 U/L (15-37); Alanine Aminotransfer ALT/SGPT 25 U/L (13-56); Alkaline Phosphatase 83 U/L (45-117); Anion Gap 8 (5-15); BUN 7 mg/dL (7-18); BUN/Creat Ratio 9.6 RATIO (10-20); Calcium,Total 9.1 mg/dL (8.5-10.1); Chloride 104 mmol/L (98-107); Creatinine, Serum 0.73 mg/dL (0.55-1.02); EST Glomerular Filtration Rate 86 mL/min (>60); Est Glom Filt Rate - Afr Amer 104 mL/min (>60); Globulin 3.4 g/dL (2.2-4.2); Glucose 101 mg/dL (74-106); Potassium 3.6 mmol/L (3.5-5.1); Protein, Total 7.4 g/dL (6.4-8.2); Sodium Level 140 mmol/L (136-145); Thyroid Stim Hormone (TSH) 1.41 uIU/mL (0.358-3.74); Uric Acid 5.5 mg/dL (2.6-6.0)
== END ==
PROVIDERS: Family Provider Family Medicine Geriatric Medicine; PCP Family Medicine Geriatric Medicine; Visit Provider Family Medicine Geriatric Medicine
DX: M10.9 Gout, unspecified (principal); R53.83 Other fatigue; E55.9 Vitamin D deficiency, unspecified
CPT/HCPCS: 36415; 80053; 82306; 84443; 84550; 85025

== ENCOUNTER → 2019-06-20 13:23 | Outpatient (CLI) | payer MEDICAID, SELFPAY ==
[2019-06-14 14:08] VITALS: BMI 28.7
--- NOTE | 2019-06-20 13:25 | BI_ITS ---
MAMMOGRAPHY - BILATERAL SCREENING REASON FOR EXAM: Female, 64 years old. Routine annual screening examination. PERTINENT HISTORY: Aunt with breast cancer. TECHNIQUE: Digital bilateral breast anna (3D mammographic acquisition) in the CC and MLO projections. 2-D mediolateral oblique (MLO) and craniocaudad (CC) views of both breasts were obtained. CAD: Full Field Digital Mammography with Computer Added Detection was performed. COMPARISON: Comparison is made with prior study dated August 18, 2014 and October 03, 2012. FINDINGS: Breast Composition: There are scattered areas of fibroglandular density. There are no dominant masses or suspicious calcifications. Stable benign-appearing bilateral axillary lymph nodes. No other significant abnormalities are identified. There has been no significant change since the prior study. BI/SCREEN MAMM (CAD) W/ANNA BILAT IMPRESSION: Stable bilateral screening mammogram. Yearly follow-up mammogram recommended. (A) ASSESSMENT CATEGORY: BIRADS Category 1: Negative. A letter regarding these results will be sent to the patient by the facility within 30 days. Approximately 10% of breast cancers are not detected by mammography. A normal mammogram should not delay biopsy of a clinically suspicious abnormality. [id number] Electronically Signed: Ru Blakely, at 14:35 EDT , Service support ,
== END ==
PROVIDERS: Family Provider Internal Medicine; PCP Internal Medicine; Referring Provider Internal Medicine; Visit Provider Internal Medicine
DX: Z12.31 Encounter for screening mammogram for malignant neoplasm of breast (principal)
CPT/HCPCS: 77063; 77067

== ENCOUNTER → 2019-08-02 10:45 | Outpatient (CLI) | payer MEDICAID, SELFPAY ==
[2019-06-14 14:08] VITALS: BMI 28.7
[2019-08-02 13:11] LABS: ALB/GLOB Ratio 1.3 RATIO (0.9-2.4); AST(SGOT) 15 U/L (15-37); Alanine Aminotransfer ALT/SGPT 16 U/L (13-56); Albumin, Serum 3.8 g/dL (3.2-5.0); Alkaline Phosphatase 90 U/L (45-117); Anion Gap 5 (5-15); BUN 12 mg/dL (7-18); BUN/Creat Ratio 18.8 RATIO (10-20); Calcium,Total 9.2 mg/dL (8.5-10.1); Chloride 105 mmol/L (98-107); Cholesterol 233 mg/dL (200); Creatinine, Serum 0.64 mg/dL (0.55-1.02); EST Glomerular Filtration Rate 100 mL/min (>60); Est Glom Filt Rate - Afr Amer 121 mL/min (>60); Globulin 2.9 g/dL (2.2-4.2); Glucose 85 mg/dL (74-106); High Density Lipoprotein 64 mg/dL; Protein, Total 6.7 g/dL (6.4-8.2); Sodium Level 140 mmol/L (136-145); Triglycerides 139 mg/dL; Very Low Density Lipoprotein 28 mg/dL (5-40)
== END ==
PROVIDERS: Family Provider Internal Medicine; PCP Internal Medicine; Referring Provider Internal Medicine; Visit Provider Internal Medicine
DX: I10 Essential (primary) hypertension (principal); E78.5 Hyperlipidemia, unspecified
CPT/HCPCS: 36415; 80053; 80061

== ENCOUNTER → 2020-02-25 14:43 | Outpatient (CLI) | payer MEDICAID, SELFPAY ==
[2019-09-25 16:08] VITALS: BMI 29.2
--- NOTE | 2020-02-25 14:48 | RAD_ITS ---
STUDY: X-RAY - RIGHT HAND REASON FOR EXAM: Female, 64 years old. Pain in joints TECHNIQUE: 3 view(s) of the hand. COMPARISON: Comparison is made with prior examination of February 09, 2016. FINDINGS: Normal radiocarpal articulation. Normal distal radioulnar joint. Normal visualized carpal bones. Normal carpal articulations Normal carpometacarpal articulation of the thumb. Normal second through fifth carpometacarpal joints. Normal metacarpi. Normal metacarpophalangeal joint of the thumb. Normal interphalangeal joint of the thumb. Normal proximal and distal phalanges of the thumb. Normal metacarpophalangeal joints of the second through fifth fingers. There is mild diffuse articular joint space narrowing of the proximal and distal interphalangeal joints of the second through fifth fingers, but without erosive changes or periarticular soft tissue swelling. Stable 3 mm cystic change in the distal aspect of the middle phalanx of the index finger. The soft tissue structures are unremarkable. RAD/Hand Min 3 Views IMPRESSION: Degenerative joint disease of the hand, as described above. Electronically Signed: Ru Blakely, at 15:20 EDT , Service support ,
--- NOTE | 2020-02-25 14:48 | RAD_ITS ---
STUDY: X-RAY - LEFT HAND REASON FOR EXAM: Female, 64 years old. Pain in joints TECHNIQUE: 3 view(s) of the hand. COMPARISON: Comparison is made with prior examination dated February 09, 2016. FINDINGS: Normal radiocarpal articulation. Normal distal radioulnar joint. Normal visualized carpal bones. Normal carpal articulations Normal carpometacarpal articulation of the thumb. Normal second through fifth carpometacarpal joints. Normal metacarpi. Normal metacarpophalangeal joint of the thumb. Normal interphalangeal joint of the thumb. Normal proximal and distal phalanges of the thumb. Normal metacarpophalangeal joints of the second through fifth fingers. Normal proximal and distal interphalangeal joints of the second through fifth fingers. Normal phalanges of the second through fifth fingers. The soft tissue structures are unremarkable. RAD/Hand Min 3 Views IMPRESSION: Normal x-ray examination of the hand. Electronically Signed: Ru Blakely, at 15:20 EDT , Service support ,
[2020-02-25 17:40] LABS: Absolute Lymphocyte Count 1.74 X10^3/uL (0.83-4.51); Absolute Neutrophil Count 4.1 X10^3/uL (2.0-7.7); Basophil# 0.08 X10^3/uL; Basophil% 1.2 % (0-1); Eosinophil# 0.23 X10^3/uL; Eosinophils% 3.5 % (0-5); Hematocrit 34.3 % (37-47); Hemoglobin 10.4 g/dL (12.0-15.0); Lymphocyte # 1.74 X10^3/ul (4.0); Lymphocyte % 26.4 % (19-41); Mean Corp Hgb Conc 30.3 g/dL (32-36); Mean Corpuscular Hgb 24.1 pg (27.0-32.0); Mean Corpuscular Volume 79.6 fL (81-99); Mean Platelet Vol. 10.5 fl (6.2-12.0); Monocyte# 0.46 X10^3/uL; NRBC Flagged by Analyzer 0 % (0-5); Neutrophil # 4.08 X10^3/uL (2.7-7.7); Neutrophil % 61.7 % (47-70); Platelet Count 370 K/mm3 (150-450); RBC Distribution Width CV 15.7 % (11.6-14.6); RBC Distribution Width SD 44.8 fl (35.1-43.9); Red Blood Count 4.31 M/mm3 (4.2-5.4); White Blood Count 6.6 K/mm3 (4.4-11.0)
[2020-02-25 18:00] LABS: Erythrocyte Sedimentation Rate 4 mm/hr (0-30)
[2020-02-25 18:19] LABS: Vitamin D,25 Hydroxy 35.2 ng/mL
[2020-02-25 18:38] LABS: ALB/GLOB Ratio 1.3 RATIO (0.9-2.4); AST(SGOT) 20 U/L (15-37); Alanine Aminotransfer ALT/SGPT 21 U/L (13-56); Albumin, Serum 3.8 g/dL (3.2-5.0); Alkaline Phosphatase 90 U/L (45-117); Anion Gap 7 (5-15); BUN 9 mg/dL (7-18); BUN/Creat Ratio 12.6 RATIO (10-20); CRP < 2.90 mg/L (0.0-3.0); Calcium,Total 8.9 mg/dL (8.5-10.1); Chloride 101 mmol/L (98-107); Creatinine, Serum 0.71 mg/dL (0.55-1.02); EST Glomerular Filtration Rate 88 mL/min (>60); Est Glom Filt Rate - Afr Amer 106 mL/min (>60); Glucose 95 mg/dL (74-106); Potassium 3.7 mmol/L (3.5-5.1); Protein, Total 6.8 g/dL (6.4-8.2); Rheumatoid Factor < 10.0 IU/mL (<15); Sodium Level 137 mmol/L (136-145)
[2020-02-29 12:04] LABS: CCP IgG Antibodies 8 units (0-19)
== END ==
PROVIDERS: PCP Internal Medicine; Referring Provider Internal Medicine; Visit Provider Internal Medicine
DX: M19.041 Primary osteoarthritis, right hand (principal)
CPT/HCPCS: 36415; 73130; 80053; 82306; 85025; 85652; 86140; 86200; 86431

== ENCOUNTER 2020-05-03 20:56 | Emergency (ER) | payer MEDICAID, SELFPAY ==
[2019-09-25 16:08] VITALS: BMI 29.2
[2020-05-03 20:56] VITALS: BP 127/78; PULSE 80; RESP 15; TEMP 37.1; O2SAT 98; BMI 36.3
--- NOTE | 2020-05-03 22:03 | ED.DCSUM_ITS ---
History of Present Illness Chief Complaint: Lower Extremity Injury Informant: Patient Occurred: Today Mechanism/Context: - - twisted Context: Sudden Onset - when turned, while at her home Timing: Continuous Quality of Pain: Aching Location: left knee Current Severity: Moderate Maximum Severity: Severe Worsened by: weight-bearing, movement Relieved by: remaining still Associated Symptoms: Loss of Funtion - can't bear weight LLE. Negative for: Parasthesia, Weakness Narrative: Patient states she has been having weeks of pain in her left knee, went to see Dr. Bj Mann orthopedics this past week and had a cortisone shot, and was told that she had arthritis in 1 compartment of her knee at least. She states tonight, she turned, accidentally twisting her knee, and had sudden onset of pain, and shortly later, swelling. She states now as a result of that, she cannot bear weight on this leg. She denies any other injury or fall as a result. - Past Medical History (1) Chronic constipation Status: Chronic (2) GERD (gastroesophageal reflux disease) Status: Chronic (3) Gout Status: Chronic (4) Hyperlipemia Status: Chronic (5) Hypertension Status: Chronic (6) Hypothyroidism Status: Chronic (7) IBS (irritable bowel syndrome) Status: Chronic (8) Polyarthropathy Status: Chronic (9) Seasonal allergies Status: Chronic Past Medical History - Allergies and Home Meds Allergies/Adverse Reactions: Allergies No Known Allergies Allergy (Verified 05/03/20 21:00) Primary Care Physician: Arley Box MD [Primary Care Provider] - Lives: Spouse/ Significant Other Smoking Status: Never smoker Review of Systems General: Denies: Chills, Fever, Sweats Musculoskeletal: Reports: Swelling - left knee, Extremity Pain Skin: Denies: Rash, Wounds Neurological: Denies: Weakness, Numbness Physical Exam Vital Signs/Narrative: Vital Signs Temp Pulse Resp BP Pulse Ox 05/03/20 20:56 98.8 F 80 15 127/78 H 98 Inital Vital Signs reviewed: Yes - Extremity Exam Left Knee: Limited ROM, - - Left knee effusion. Able to fully extend, and flex almost completely. All ligaments stable with short endpoints including negative Lockman and negative posterior drawer sign. No deformities. No specific bony tenderness. General: Well nourished, Well developed Head: Normocephalic, Atraumatic Skin: Normal color, No rash, No Trauma Neurological: Alert, Oriented x3, Cranial nerves II-XII grossly intact, Normal Strength, Normal Sensation Psychological: Normal affect, Normal Mood Diagnostic/Tx/Re-eval Clinical Impression(s) from Imaging Studies Knee X-Ray 05/03/20 22:27 IMPRESSION: No fracture or dislocation. No significant degenerative changes of the loose bodies are not excluded. Electronically Signed: Favio Bagley MD at 22:51 EDT , Service support , - Medical Decision Making X-ray showed nothing acute with regards to the bones of the left knee. Differential here includes meniscus injury, ligamentous injury without complete tear, tendinous strain. She is placed in an Shabbir wrap, she came with crutches, and she was given analgesics as well as a prescription. Advised to follow-up with orthopedics after the weekend and she is comfortable with that plan. ED Disposition - Plan for ED Patient: Disposition: Home or Assisted Living Diagnosis: Left knee sprain Instructions: ED Effusion Knee, ED Bandage Elastic Wrap, ED Sprain Knee Prescriptions: Hydrocodone Bitart/Apap 5-325 [[place] 5MG-325MG] 1 tab PO Q4H PRN PRN 2 Days #10 tab PRN Reason: Pain Prescription Printed Referrals: Bj Mann MD [STAFF PHYSICIAN] - 3-5 Days
[2020-05-03] MEDS: HYDROcodone Bitartrate/Apap 5/325 Tablet PO (22:13)
--- NOTE | 2020-05-03 22:27 | RAD_ITS ---
STUDY: X-RAY - LEFT KNEE REASON FOR EXAM: Female, 65 years old. Left knee pain today. Pt states she may have injured her knee TECHNIQUE: 4 view(s) of the knee. COMPARISON: None. FINDINGS: Normal visualized distal femur. Normal visualized proximal tibia and fibula. Normal proximal tibiofibular articulation. There is no demonstrated fracture. Several small low densities approximately 3 to 4 mm size project in the lateral tibiofemoral compartment along the anterior margin. These could be intra-articular loose bodies. Normal medial femorotibial compartment. Normal lateral femorotibial compartment. Normal patellofemoral articulation. There is no demonstrated joint effusion. The soft tissue structures are unremarkable. RAD/Knee 4 or More Views IMPRESSION: No fracture or dislocation. No significant degenerative changes of the loose bodies are not excluded. Electronically Signed: Favio Bagley MD at 22:51 EDT , Service support ,
== END 2020-05-03 23:30 | disposition home or self-care (01) ==
PROVIDERS: Emergency Provider Emergency Medicine; PCP Internal Medicine
DX: S83.92XA Sprain of unspecified site of left knee, initial encounter (principal); X50.1XXA Overexertion from prolonged static or awkward postures, initial encounter; Y93.9 Activity, unspecified; Y92.9 Unspecified place or not applicable; I10 Essential (primary) hypertension; E78.5 Hyperlipidemia, unspecified; E03.9 Hypothyroidism, unspecified; K21.9 Gastro-esophageal reflux disease without esophagitis; K58.1 Irritable bowel syndrome with constipation; M10.9 Gout, unspecified; Z79.899 Other long term (current) drug therapy
CPT/HCPCS: 73564; 99283

== ENCOUNTER → 2020-06-03 16:29 | Outpatient (CLI) | payer MEDICAID, SELFPAY ==
[2020-06-03 16:01] VITALS: BMI 36.3
[2020-06-03 17:15] LABS: Absolute Lymphocyte Count 2.08 X10^3/uL (0.83-4.51); Absolute Neutrophil Count 5.7 X10^3/uL (2.0-7.7); Basophil# 0.07 X10^3/uL; Basophil% 0.8 % (0-1); Eosinophil# 0.16 X10^3/uL; Eosinophils% 1.8 % (0-5); Hematocrit 34.6 % (37-47); Hemoglobin 10.7 g/dL (12.0-15.0); Lymphocyte # 2.08 X10^3/ul (4.0); Mean Corp Hgb Conc 30.9 g/dL (32-36); Mean Corpuscular Hgb 24.2 pg (27.0-32.0); Mean Corpuscular Volume 78.1 fL (81-99); Mean Platelet Vol. 9.9 fl (6.2-12.0); Monocyte# 0.61 X10^3/uL; NRBC Flagged by Analyzer 0 % (0-5); Neutrophil # 5.74 X10^3/uL (2.7-7.7); Neutrophil % 66.2 % (47-70); Platelet Count 348 K/mm3 (150-450); RBC Distribution Width CV 17.4 % (11.6-14.6); RBC Distribution Width SD 49.6 fl (35.1-43.9); Red Blood Count 4.43 M/mm3 (4.2-5.4); White Blood Count 8.7 K/mm3 (4.4-11.0)
[2020-06-03 17:27] LABS: Hemoglobin A1c 5.7 % (3.8-5.6)
[2020-06-03 18:01] LABS: International Normalized Ratio 0.9; Prothrombin Time (Protime)PT. 11.9 SECONDS (11.7-14.9)
[2020-06-03 18:03] LABS: Partial Thromboplast Time 35.2 Seconds (24.1-36.2)
[2020-06-03 18:14] LABS: ALB/GLOB Ratio 1.1 RATIO (0.9-2.4); AST(SGOT) 17 U/L (15-37); Alanine Aminotransfer ALT/SGPT 20 U/L (13-56); Albumin, Serum 3.7 g/dL (3.2-5.0); Alkaline Phosphatase 81 U/L (45-117); Anion Gap 4 (5-15); BUN 12 mg/dL (7-18); BUN/Creat Ratio 14.1 RATIO (10-20); Calcium,Total 8.4 mg/dL (8.5-10.1); Chloride 103 mmol/L (98-107); Cholesterol 263 mg/dL (200); Creatinine, Serum 0.85 mg/dL (0.55-1.02); EST Glomerular Filtration Rate 71 mL/min (>60); Est Glom Filt Rate - Afr Amer 86 mL/min (>60); Globulin 3.3 g/dL (2.2-4.2); Glucose 86 mg/dL (74-106); High Density Lipoprotein 62 mg/dL; Sodium Level 137 mmol/L (136-145); Thyroid Stim Hormone (TSH) 1.54 uIU/mL (0.358-3.74); Triglycerides 121 mg/dL; Very Low Density Lipoprotein 24 mg/dL (5-40)
== END ==
PROVIDERS: Podiatrist Foot & Ankle Surgery; PCP Internal Medicine; Referring Provider Nurse Practitioner Family; Visit Provider Nurse Practitioner Family
DX: Z01.818 Encounter for other preprocedural examination (principal); Z01.810 Encounter for preprocedural cardiovascular examination; E03.9 Hypothyroidism, unspecified; I10 Essential (primary) hypertension
CPT/HCPCS: 36415; 80053; 80061; 83036; 84443; 85025; 85610; 85730

== ENCOUNTER 2020-07-02 07:19 | Day surgery (SDC) | payer MEDICAID, SELFPAY ==
[2020-06-03 16:01] VITALS: BMI 36.3
--- NOTE | 2020-06-05 13:03 | EKG12_ITS ---
Test Reason : FOOT/KNEE SURGERY Blood Pressure : / mmHG Vent. Rate : 066 BPM Atrial Rate : 066 BPM P-R Int : 158 ms QRS Dur : 088 ms QT Int : 442 ms P-R-T Axes : 054 069 041 degrees QTc Int : 463 ms Normal sinus rhythm Normal ECG Confirmed by VICKY LOVE, SYDNEE ([id number]), video news editor ELAYNE VALERIO ([id number]) on 06/12/2020 11:10:22 A M Referred By: Hai Mann Confirmed By:PIERRE PERRY MD
--- NOTE | 2020-06-05 13:17 | RAD_ITS ---
HISTORY: Pre-op for surgery on July 01. EXAM: XR Chest 2 Views: COMPARISON: May 20, 2016 FINDINGS: # of images incl. paperwork: 2 Calcific plaque within the aortic arch persists. Moderate-sized hiatal hernia is larger. Lungs are clear. Cholecystectomy clips in the right upper quadrant Heart is not enlarged. No acute osseous pathology perceived. Pulmonary vascularity is distinct. No effusions. RAD/Chest PA and Lateral IMPRESSION: Moderate-sized gastric hernia. at 0555 Reported and signed by: Jabari Pettit MD Electronically Signed: Jabari Pettit MD at 5:54 EDT Tel , Service support ,
[2020-07-02] VITALS (7 sets, daily range): BP systolic 111–140; BP diastolic 67–85; PULSE 66–85; RESP 16; TEMP 36.3–36.6; O2SAT 91–100; BMI 35.9
[2020-07-02] MEDS: Lactated Ringers 1,000 ML 100 ML IV (07:50)
--- NOTE | 2020-07-02 08:45 | RAD_ITS ---
STUDY: X-RAY LEFT FOOT, SECOND AND THIRD TOES REASON FOR EXAM: Female, 65 years old. OSTEOTOMY, HAMMER TOE CORECTIINO 2ND AND 3RD TOE TECHNIQUE: 2 view(s) of the toe were obtained. COMPARISON: None. FINDINGS: Intraoperative imaging provided for osteotomy and hammertoe correction of the second and third toes. RAD/Toe(s) Min 2 Views IMPRESSION: Intraoperative imaging. Electronically Signed: Ru Blakely, at 15:53 EDT , Service support ,
[2020-07-02] MEDS: Cefazolin 2 GM in 0.9% Normal Saline 100 ML IV (08:53)
[2020-07-02] MEDS: Bupivacaine Mpf 0.5% 30 ML VIAL (09:26)
--- NOTE | 2020-07-02 11:06 | DCINST_ITS ---
Discharge Diet: No Restrictions Discharge Activity: May Not Drive, May Not Shower, Use Walker, Use Crutches Weight Bearing Status: No weight bearing Keep extremity elevated above heart level: Left Leg Additional Activity Instructions:: 1. Keep dressing to left leg clean, dry, intact. Do not get dressing wet. Do not remove dressing. If get dressing wet, call office for further instruction. I recommend sponge bathing at this time. 2. Elevate left foot above the level of the heart as often as possible until follow-up appointment. 3. Ice around the left knee 20 minutes on, 20 minutes off, every hour while awake until follow-up appointment and as needed for pain. 4. No walking/standing on left foot. Use walker and crutches for assistance. 5. Begin taking pain medication (Percocet/oxycodone and acetaminophen) today, July 02, 2020 as needed and as instructed. May supplement with extra strength Tylenol. Extra strength Tylenol is acetaminophen. Acetaminophen is in your prescription pain medication. You are not to take more than 3000 mg of acetaminophen in a 24-hour period. #6. Begin taking doxycycline (antibiotic) tomorrow, July 03, 2020 as instructed. 7. Begin taking aspirin tomorrow, July 03, 2020 as instructed. 8. Follow-up in office at pre-scheduled appointment in one week for further postoperative care. Please call office with any questions or concerns. Call your doctor if your incision/area has: Continuous Slow Oozing, Sudden Increased Bleeding, Increased Pain/ Swelling Call your doctor if you observe: Fever of 101 or Higher, Coldness, Increased Pa in, Inability to have a bowel movement, Shortness of breath, Chest pain, Increased palpitations (irregular heartbeat), Calf discomfort, Uncontrolled pain Cleanse incision/area with: Keep Dressing Clean & Dry Allergies/Adverse Reactions: Allergies No Known Allergies Allergy (Verified 06/17/20 09:18) Medications to take at Discharge calcium 600 mg-D3 800 unit-mag11 50 um-vlpf-cnmlwu-veronica-s.borat tablet 2 tab PO DAILY 05/13/19 gabapentin 300 mg capsule 300 mg PO TID #90 cap 09/11/19 linaclotide 145 mcg capsule 145 mcg PO DAILY #90 cap 09/11/19 meloxicam 15 mg tablet 15 mg PO DAILY PRN 09/11/19 Dexlansoprazole [Dexilant] 60 mg PO DAILY 05/03/20 citalopram 40 mg tablet 40 mg PO DAILY #90 tab 06/03/20 estradiol 1 mg tablet 0.5 mg PO DAILY #90 tab 06/03/20 levothyroxine 25 mcg tablet 25 mcg PO DAILY #90 tab 06/03/20 lisinopril 20 mg-hydrochlorothiazide 12.5 mg tablet 1 tab PO DAILY #90 tab 06/03/20 ropinirole 2 mg tablet 2 mg PO QHS #90 tab 06/03/20 Doxepin HCl 25 mg PO QHS PRN 06/17/20 Ferrous Sulfate 325 mg PO DAILY@0800 06/17/20 Multivitamin [Daily Multiple Vitamin] 1 ea PO DAILY 06/17/20 Potassium Chloride [Klor-Con M10] 20 meq PO DAILY 06/17/20 Primary Care Physician: Arley Box MD [Primary Care Provider] - Test Results: Test results from this visit will be discussed in further detail at your follow- up appointment, if applicable. Please Follow Up With: Hai Mnan DPM When: in one week at [facility] as previously scheduled. Proposed Discharge Date: 07/02/20
--- NOTE | 2020-07-02 11:11 | OP.PCM_ITS ---
Problem List (1) Acquired hammer toe of left foot Status: Chronic (2) Acquired deformity of left foot Status: Chronic (3) Pain in left foot Status: Chronic Report of Operation Date of Procedure: 07/02/20 Pre-Operative Diagnosis: 1. Hammertoe deformity of second and third digit left foot. 2. Pain in left foot. 3. Acquired deformity left foot Post-Operative Diagnosis: Same as pre-operative Surgery/Procedure Performed:: 1. Second metatarsal osteotomy with internal fixation. 2. Third metatarsal osteotomy with internal fixation. 3. Arthroplasty of proximal interphalangeal joint third digit left foot. 4. Arthroplasty of distal interphalangeal joint second digit left foot. 5. Extensor tendon lengthening second digit left foot. Description of Surgical Findings:: Consistent with diagnosis. Reduction of deformity achieved and held postoperatively. wire fence erector: Lisa Covarrubias NP Type of Anesthesia:: General/Regional - With a local block given to the left ankle consisting of 20 cc of 0.5% bupivacaine plain distributed in an ankle block fashion Anesthesiologist: Quintin Ochoa Special Medications: 2 g of Ancef given preoperatively Specimen's removed: None Drains: None Estimated Blood Loss (mL): 45 Description of Procedure: Hemostasis: Pneumatic calf tourniquet placed to the level of the left calf at 250 mmHg for 83 minutes Materials: #1. Shawn 2.0 x 14 mm partially threaded cannulated screw. 2. Shawn 2.0 x 11 mm partially-threaded cannulated screw. 3. Size 4-0 Vicryl. 4. Size 3-0 Vicryl. 5. Size 2-0 Vicryl. 6. Size 3-0 nylon #7. Size 0.045 K wire Injectables: None Complications: None Condition: Stable Indications: Patient is a 65-year-old female who presented to me in my office with a chief complaint of pain in her left foot second and third toes. Patient stated to me that she had previous hammertoe surgery on her left second toe in September 2018 by another physician. She was unhappy with the surgical outcome, stating that her second toe sticks up in the air. Furthermore, the second toe is uncomfortable and rubs against her shoes. Also, her third toe is now under lapping underneath her second toe. Furthermore, she stated that there was pain in the ball of her foot in the area of the second and third metatarsal heads. At that time, x-rays were taken, revealing hardware placed within the second proximal phalanx and second middle phalanx with attempted fusion of the second proximal to phalangeal joint. No evidence of fusion was noted. Furthermore, clinical and radiographic evaluation revealed a hammertoe deformity still present in the second proximal to phalangeal joint along with an adductovarus deformity of the third digit. Furthermore, the second and third metatarsals appeared elongated. At that time, I discussed with the patient that I would recommend that she see the previous physician for this. Patient states that she does not want to return to see the previous physician, and wanted care employed by me. Conservative therapy was employed, including change in shoe gear, toe spacers, crest pads, inserts. Patient states that all of the conservative therapy that was employed was failed. I discussed with the patient I do believe that she is elevation of the second digit at the level of the metatarsal phalangeal joint along with an adductovarus deformity of the third digit and elongated second and third metatarsals. This is resulting in the symptoms that she is experiencing. I discussed with her surgical intervention would include a Jodi osteotomy of the second and third metatarsals left foot with repair of ligamentous structures and correction of the hammertoe deformity of the second and third toe. I discussed with the patient that attempts to remove the hardware contained within the second toe would likely lead to further damage of the bones and soft tissue of the second toe, and that I would elect to leave this hardware in place. Patient was agreeable to this. I discussed the risks and benefits of the surgical intervention. These included but not limited to delayed or nonhealing wounds, delayed or nonhealing bone, DVT, infection, decreased function of toes and limb, continued pain, continued foot deformity, loss of toes, loss of limb, loss of life, damage to surrounding structures. Furthermore, I discussed with the patient her preoperative blood work, revealing that she is prediabetic and anemic. I discussed with her that these will likely increase of the risk of postoperative complications. All the patient's questions were answered to her satisfaction and all of her concerns were addressed. No guarantees were made as to the outcome of the procedure. Patient understood all aspects of the procedure. Patient was agreeable to proceed with surgical intervention. This was scheduled for todayJuly 02. Operative report: Before the patient was brought to the operating room, the risks, benefits, possible outcomes, possible complications of the procedure discussed with the patient once again. These include but not limited to delayed or nonhealing wounds, delayed or nonhealing bone, DVT, infection, decreased function of toes of limb, continued pain, continued foot deformity, loss of toes, loss of limb, loss of life, damage to surrounding structures. All the patient's questions were answered to her satisfaction and all of her concerns were addressed. No guarantees were made as to the outcome of the procedure. Patient understood all aspects of the procedure, and consent was then signed by the patient. Patient was then brought to the operating room placed on the operating table in the supine position. After timeout, general anesthesia was obtained anesthesia to control the airway and the IV access. Adequate padding was placed in all pressure points. Next, well-padded pneumatic calf tourniquet was placed the level of the left calf. Next, a total of 20 mL of 0.5% bupivacaine plain was distributed in a left ankle block fashion. The left foot, ankle, leg were then scrubbed, prepped, draped in the usual sterile manner. Elevation of the left lower extremity was followed by exsanguination via Esmarch and inflation of the pneumatic calf tourniquet to 250 mmHg. At this time, radiographic evaluation was used to determine the levels of the second and third metatarsal heads, second and third metatarsal shafts, and second metatarsal phalangeal joints. These were then marked on the patient. At this time, a curvilinear incision was made starting at the midportion of the midshaft between the second and third metatarsals extending distally in a curvilinear fashion over the third metatarsal phalangeal joint and a linear fashion to the dorsal aspect of the midshaft of the middle phalanx of the third digit. This incision was deepened utilizing sharp and blunt dissection. Care was taken to retract all vital neural and vascular structures. All bleeders were cauterized and ligated as necessary. Attention was then directed to the level of the second digit extensor tendons. A periosteal and capsular incision was made at the level of the second metatarsal head just medial to the extensor tendons. The periosteal and capsular structures were then reflected medially and laterally, thus exposing the second metatarsal phalangeal joint the operative site. The extensor tendons were retracted laterally and protected. At this time, a McGlamry elevator was used to freeing the soft tissue attachments located on the plantar, medial, lateral aspect of the second metatarsal head. Next, the Jodi osteotomy was performed in a dorsal distal to plantar proximal fashion through the dorsal aspect of the articular cartilage of the second metatarsal head. This osteotomy was performed as parallel to the weightbearing surface as possible. Once this osteotomy was performed, immediate retraction was noted of the second metatarsal head. This was then held in a corrected reduced position. This was held via temporary fixation. At this time, radiograph evaluation was then performed, and the second metatarsal head was noted to be held in the corrected reduced position. At this time, a [employer] 2.0 x 14 mm cannulated screw was placed over the temporary fixation and inserted in standard AO fixation. Of note during insertion of the screw was adequate compression of the second metatarsal capital fragment at the osteotomy site. Furthermore, no shifting any of the fragment occurred during insertion of the screw. Once the screw was fully inserted, all temporary fixation was then removed. A rongeur was used to remove any overlying cortical bone. Radiograph evaluation was then performed. The internal fixation was noted to hold the se cond metatarsal head in the corrected reduced position. Attention was then directed to the dorsal aspect of the third metatarsal phalangeal joint through the surgical site. Attention was then directed to the level of the third digit extensor tendons. A periosteal and capsular incision was made at the level of the third metatarsal head just medial to the extensor tendons. The periosteal and capsular structures were then reflected medially and laterally, thus exposing the third metatarsal phalangeal joint at the operative site. The extensor tendons were retracted laterally and protected. At this time, a McGlamry elevator was used to free the soft tissue attachments located on the plantar, medial, lateral aspect of the third metatarsal head. Next, the Jodi osteotomy was performed in a dorsal distal to plantar proximal fashion through the dorsal aspect of the articular cartilage of the third metatarsal head. This osteotomy was performed as parallel to the weightbearing surface as possible. Once this osteotomy was performed, immediate retraction was noted of the third metatarsal head. This was then held in a corrected reduced position. This was held via temporary fixation. At this time, radiograph evaluation was then performed, and the third metatarsal head was noted to be held in the corrected reduced position. At this time, a Shawn 2.0 x 11 mm cannulated screw was placed over the temporary fixation and inserted in standard AO fixation. Of note during insertion of the screw was adequate compression of the third metatarsal capital fragment at the osteotomy site. Furthermore, no shifting any of the fragment occurred during insertion of the screw. Once the screw was fully inserted, all temporary fixation was then removed. A rongeur was used to remove any overlying cortical bone. Radiograph evaluation was then performed. The internal fixation was noted to hold the third metatarsal head in the corrected reduced position. Attention was then directed to the third proximal interphalangeal joint through the original skin incision. At this time, a transverse extensor tenotomy was performed, and the extensor tendon was reflected back proximally along the proximal phalanx. The medial and lateral collateral ligaments were sharply incised. Care was taken make sure to protect the neurovascular bundle on the medial and lateral aspects of the digit. At this time, a bone saw was used to resect the articular cartilage off the head of the proximal phalanx and at the base of the middle phalanx. These were then removed and passed from the operative site. At this time, a 0.045 K wire was driven through the base of the middle phalanx extending distally out the distal aspect of the digit. Care was taken to make sure that this K wire did not penetrate the nailbed or nail plate. Once adequate position of this K wire was had, reduction of the hammertoe deformity was performed and the K wire was inserted into the midshaft of the proximal phalanx. The digit was then held in a rectus position. The proximal interphalangeal joint site was then compressed along the K wire. Radiograph evaluation was then performed. The K wire was noted to be held within the medullary canal of the distal, middle, proximal phalanges of the third digit of the left foot. It was noted to neither be too long or too short. It was noted to hold the digit in the corrected reduced position. This K wire was then bent, clipped, and capped. This will be removed at a later date in the office. Attention was then directed back to the dorsal aspect of the second digit of the left foot. At this time, the extensor tendons were then identified, and a Z lengthening extensor tenotomy was performed. Clinical evaluation was then performed once again. The second digit deformity was noted to be reduced from preoperative assessment. The third digit deformity was noted to be reduced from preoperative assessment. There was still a mallet toe deformity noted the second digit of the left foot. Attention was then directed to the dorsal aspect of the distal interphalangeal joint of the second digit of the left foot. At this time, 2 transverse curvilinear incisions were made over the dorsal aspect of the second distal interphalangeal joint. The encompass skin was then removed in its entirety. Next, an extensor tenotomy was performed in standard fashion. Next, the head of the middle phalanx was resected utilizing a bone cutter. This was then passed from the operative site. At this time, the surgical site was irrigated with copious amounts of normal sterile saline. The extensor tendon was then reapproximated and coapted utilizing size 4-0 Vicryl in a simple interrupted fashion. Clinical evaluation was then performed of the foot once again. The second and third digits were noted to be reduced from preoperative assessment. Each surgical site was then irrigated with copious amounts of normal sterile saline. The tendon ends of the extensor tendon post lengthening of the second digit were reapproximated coapted utilizing size 4-0 Vicryl. The extensor tendon of the third proximal interphalangeal joint was reapproximated and coapted utilizing size 4-0 Vicryl. The pneumatic calf tourniquet was then released and a prompt hyperemic response was noted to the entirety of the left lower extremity. Capillary fill time was less than 3 seconds to all digits of the left foot, and adequate blood flow was reestablished to the entirety of the left foot, including the second and third toes. The periosteal and capsular structures of the second and third metatarsal phalangeal joints were reapproximated and coapted utilizing size 2-0 Vicryl and 3-0 Vicryl. Subcutaneous tissues of the surgical sites were reapproximated coapted utilizing size 2-0 Vicryl and 3-0 Vicryl. The skin of all the surgical sites was reapproximated coapted utilizing size 3-0 Vicryl in a simple interrupted horizontal mattress fashion. Each surgical site was then dressed with Betadine soaked gauze, and a dry sterile dressing consisting of 4 x 4 gauze, ABD pads, wrapped with Kerlix. The left foot and ankle were then wrapped with an Shabbir bandage. Next, a stockinette was placed over the left lower extremity. Cast padding was wrapped in the metatarsal heads extending proximally to level just distal to the tibial tuberosity. A posterior splint was fashioned to the left lower extremity and was adhered to the left lower extremity utilizing Shabbir bandages. Neurovascular status was assessed at the end the application and deemed intact to the left lower extremity. Care was taken make sure that the foot and ankle held in neutral position as the posterior splint dried. The patient tolerated the anesthesia of the procedure well and was transported to the PACU with vital signs stable and neurovascular status intact the left lower extremity. After period of postoperative monitoring, patient will be discharged home with written and oral instructions for wound care and follow-up. The bilingual administrative assistant, the nurse practitioner, was utilized at the entire procedure. She help with patient positioning, holding of limb, holding retractors. She helped with exposure throughout. She helped with bandage application and cast application. Without the bilingual administrative assistant, surgical time would have been increased and surgical outcome could have been les s optimal. - Complications None - Admit VTE Documentation VTE Present on Admission: No VTE Mechan Device Prophylaxis: SCD's VTE Pharm Prophylaxis ordered?: Yes
--- NOTE | 2020-07-02 11:50 | RAD_ITS ---
STUDY: X-RAY - LEFT FOOT CLINICAL: Female, 65 years old. POST OP OSTEOTOMY 2ND AND 3RD TOES, AND CORRECTION OF HAMMERTOE 2ND AND 3RD TOE TECHNIQUE: 3 view(s) of the foot. COMPARISON: None. FINDINGS: There is a plantar calcaneal spur. Normal visualized subtalar, talonavicular, calcaneocuboid, tarsal and tarsometatarsal articulations. Normal metatarsi. Normal metatarsophalangeal joint of the great toe. Normal tibial and fibular sesamoid bones. Normal interphalangeal joint of the great toe. Normal phalanges of the great toe. The patient is status post osteotomy and correction of hammertoe deformity of the second and third toes. Postoperative soft tissue changes. RAD/Foot min 3 Views IMPRESSION: Status post osteotomy and correction of hammertoe deformity of the second and third toes. Electronically Signed: Ru Blakely, at 13:12 EDT , Service support ,
[2020-07-02] MEDS: oxyCODONE 5 MG Tablet PO (13:12)
== END 2020-07-02 13:45 | disposition home or self-care (01) ==
LOC: SDC 07:20 → AC 07:21
PROVIDERS: Anesthesiology; PCP Internal Medicine; Referring Provider Podiatrist Foot & Ankle Surgery; Visit Provider Podiatrist Foot & Ankle Surgery
PROC: (CPT 28285; principal; 2020-07-02 08:30)
DX: M20.42 Other hammer toe(s) (acquired), left foot (principal); M21.6X2 Other acquired deformities of left foot; M67.02 Short Achilles tendon (acquired), left ankle; M21.42 Flat foot [pes planus] (acquired), left foot; I10 Essential (primary) hypertension; M19.90 Unspecified osteoarthritis, unspecified site; M10.9 Gout, unspecified; E07.9 Disorder of thyroid, unspecified; K21.9 Gastro-esophageal reflux disease without esophagitis; D64.9 Anemia, unspecified; Z79.899 Other long term (current) drug therapy; Z11.59 Encounter for screening for other viral diseases
CPT/HCPCS: 28285 ×2; 71046; 73630; 73660; 76000; 87635; 93005; C1713; C9803; J7120; J2405; U0003

== ENCOUNTER 2020-08-28 11:33 | Day surgery (SDC) | payer MEDICAID, SELFPAY ==
[2020-07-16 13:40] VITALS: BMI 35.9
--- NOTE | 2020-08-09 19:50 | PCM.HP.BLA ---
History and Physical History and Physical Patient Name: Masha Kolb : 1955 From: LUISA MACIAS NP DATE OF SURGERY: 08/28/2020 SCHEDULED PROCEDURE: Left knee arthroscopy with medial meniscectomy and chondroplasty HISTORY OF PRESENT ILLNESS: Preoperative history and physical exam was performed on August 07, 2020. This is a 65-year-old female who has been experiencing left knee pain for approximately 5 months. She denies any known injury. The patient has been experiencing pain and swelling in the left knee. She notes numbness in the anterior, lateral knee and leg. The patient denies hip pain. She denies recent back pain. The patient does have a history of previous back surgery. The patient does report pain with stairs and walking. The pain is 6 on a scale of 10 on average and 8 on a scale of 10 at worst. The patient states she does experience some night pain. The patient does report popping in the left knee. She does state the left knee feels like it could give out. Previous conservative measures consist of ibuprofen, meloxicam and ice. She has had a corticosteroid injection into the left knee. The patient has participated in formal physical therapy. She has also used a knee sleeve on the left knee. The patient did undergo surgery on the left foot by Dr. David Mann on July 02, 2020. She is currently in a pneumatic Cam boot. The patient has a medical history pertinent for gout, thyroid disease and hypertension. She denies chest pain, fevers, chills, shortness of breath, difficulty breathing or recent infections. After failing conservative measures and discussing treatment options with Dr. Bj Mann the patient does wish to proceed with a left knee arthroscopy with medial meniscectomy and chondroplasty. REVIEW OF SYSTEMS: ROS: Const: Denies anorexia, change in appetite, fever, hard of hearing, vision problems and weight change. CV: Denies chest pain, heart murmur, irregular heartbeat and peripheral vascular disease. Resp: Reports cough, but denies asthma, pneumonia, sleep apnea, SOB, tuberculosis and wheezing. GI: Reports constipation and heartburn, but denies diarrhea, difficulty swallowing, nausea, bloody stools and vomiting. : Urinary: denies incontinence Musculo: Admits to left foot swelling but denies pain Skin: Denies Raynaud's, history of shingles and tattoo. Neuro: Denies ambulatory dysfunction, dizziness, numbness/tingling and tremor. Psych: Reports depression, but denies anxiety, insomnia, mental illness and stress. Alan/Lymph: Denies anemia, bleeding/bruising tendency and past transfusion. Reviewed, no changes. PAST MEDICAL HISTORY: Advance Care Plan: Other Directive PMH: Medical Problems: Arthritis, Gout, Thyroid Disease, High Blood Pressure Accidents: None Surgical Hx: Gallbladder - (2005) FRACISCO Hysterectomy - (1989) GAINES Tonsillectomy - (2010) FRACISCO Tubal Ligation - (1981) GAINES RT Knee Arthroscopy - (2008) FRACISCO RT Foot Plantar Fascitis - FASCITIS Shoulder Arthroscopy RT - (10/02/2014) [email or web address] Spinal Fusion And Decompression - (2018) Hammertoe Suregry - (08/2019) LT Foot Hammertoe & Osteotomy - (07/02/2020) TJM @ [facility] Anesthesia Complications: None Assistive Devices: Glasses Reviewed, no changes. 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 Personal Habits: Tobacco Use: Patient has never smoked.Cigarette Use: Never Smoked Cigarettes.Alcohol: Occasionally.Drug Use: Denies Use.Enjoy Exercising: Never Exercises. Reviewed and updated. VITALS: Ht: 60 Wt: 186lb Wt k.370 BMI: 36.3 BP: 127/81 Pulse: 71 Resp: 16 T: 98.0 T: 36.7C Pain Level: 6 ALLERGIES: No Known Drug Allergy MEDICATIONS: Percocet 5-325 mg 1-2 by mouth every 4-6 hour as needed pain, Doxycycline Hyclate 100 mg 1 by mouth twice a day, Estradiol 1/2 mg 1 daily, Lisinopril/HCTZ 20/12.5mg 1 by mouth every day, Dexilant 60 mg daily, Multivitamins 1 by mouth every day, Linzess 145 mcg 1po qday, Citalopram Hydrobromide 40 mg 1 by mouth every day, Levothyroxine Sodium 25 mcg 1 by mouth every day, Meloxicam 15 mg 1 by mouth every day, Gabapentin 300 mg 1 by mouth three times a day, Ropinirole HCL 2 mg as dirteced, Potassium 1po qday, Calcium 600-400 MG-Unit 1po qday PRE-OP EXAM: General appearance:NORMAL Other: Eyes: Conjunctivae and lids: NORMAL Pupils: ERR Ears, Nose, Mouth, and Throat: NORMAL Other: Inspection of lips, teeth and gums: NORMAL Other: Respiratory: Assessment of respiratory effort: NORMAL Other: Auscultation of lungs: clear to auscultation no wheezes, rhonchi or rales. Cardiovascular: Auscultation of heart: regular rate and rhythm, no murmurs, gallops or rubs. Gastrointestinal: Exam of abdomen: soft, nontender, nondistended bowel sounds present. Neurological: see below Psychiatric: Orientation to time, place and person: NORMAL Other: Mood and affect: NORMAL Other: PHYSICAL EXAMINATION: The patient ambulates with a limping gait. Pain with palpation medial and lateral with palpation. Left knee pain medially with Steinmann or Ysabel testing. Grade 5 strength. No calf pain or swelling. Negative Homans sign. Pulses intact on the left foot. No hip pain with motion. IMAGING STUDIES: X-rays of left knee obtained on June 30, 2020 reveal 50% loss of joint space medially. There is mild sclerosis of the distal femur and upper tibia. Being 9 appearing soft tissue calcification at the anterior lateral left knee joint. MRI of left knee obtained on May 15, 2020 reveals a medial meniscus tear which is complex with diffuse osteoarthritis and a knee effusion. IMPRESSION: 1. Complex medial meniscus tear, left knee 2. Knee effusion 3. Osteoarthritis, left knee 4. Thyroid disease 5. Hypertension 6. History of gout 7. Obesity, BMI 36.3 PLAN: Dr. Bj Mann did discuss and review with the patient all treatment options including surgical versus nonsurgical. The patient does wish to proceed with the above-stated procedure. Potential risk, benefits and complications of the procedure were discussed in detail including but not limited to , infection, nerve and blood vessel damage, persistent pain, numbness, tingling, paresthesia, blood clot, pulmonary embolism and requirement for possible further surgery. The patient expressed full understanding and has no further questions for the doctor. The patient does agree to proceed with the above-stated procedure and has signed the surgery consent form. The patient was given a prescription for Percocet at her preoperative visit. She was also instructed to bring a walker or crutches to the hospital the day of her surgery. Discussed with the patient the risks associated with the COVID-19 virus including the risk of exposure while at the hospital. The patient was reassured local hospitals have low infection rates and taken all necessary precautions to limit patient exposure to COVID-19. Limiting the patient's time in the hospital may decrease their exposure to COVID-19. The patient was notified that we will need to comply with any screening or testing the hospital wishes to perform and that surgery may be delayed for any positive test results. This dictation was created using voice recognition software. Phonetic and/or grammatical errors may exist. ___ I have re-examined the patient. There are no clinical changes since date of exam. ___ See progress notes for changes. ___ Dictated on admission Date: Time: Signature:
[2020-08-28] VITALS (10 sets, daily range): BP systolic 107–144; BP diastolic 62–94; PULSE 72–91; RESP 16–18; TEMP 36.4–36.7; O2SAT 93–100; BMI 35.7
[2020-08-28] MEDS: Lactated Ringers 1,000 ML 100 ML IV ×2 (12:14→15:00)
[2020-08-28] MEDS: Cefazolin 2 GM in 0.9% Normal Saline 100 ML IV (13:11)
[2020-08-28] MEDS: morphine PF (epidural) 5 MG/10 ML Vial (13:45)
[2020-08-28] MEDS: Epinephrine (1 mg/ml) 1 MG/ML VIAL (14:01)
--- NOTE | 2020-08-28 14:03 | PRO.PCM_ITS ---
Procedure Report Date of Procedure: 08/28/20 Preoperative diagnosis: Left knee medial meniscus tear, arthritis Postoperative diagnosis : Same Procedure: Diagnostic video arthroscopy, knee, partial medial meniscectomy, chondroplasty medial compartment and patellofemoral joint Surgeon: Dr. Bj Mann Anesthesia: General Special medications: Dilaudid, Toradol Complications: None Anesthesiologist: Dr. Sahu Indications for surgery: Patient is a 65-year-old female with a long-standing history of left knee pain. Patient failed adequate nonoperative treatment for the knee pain. MRI findings discussed with patient. Due to persistent symptoms they wish to proceed with knee arthroscopy. Findings: Intraoperative findings were consistent with her preoperative history, physical, radiographic exam. She had a complex tear of the posterior horn lateral meniscus. Diffuse degenerative changes of the medial compartment and ashley lofemoral joint. She underwent partial medial meniscectomy and chondroplasty with arthroscopy pictures taken throughout Details of procedure: Patient was taken to the OR transfer to the OR table. Nonoperative limb was appropriately padded, PRAVIN hose and SCD applied. Patient was placed under the anesthetic agent. Operative knee was examined. No signs of infection. Operative upper thigh was well-padded and ultimately placed in a well-padded thigh felix. Operative lower extremity was prepped and draped in usual orthopedic sterile fashion for the procedure. Local anesthetic agent was sterilely injected into the proposed arthroscopic portals. Lateral portal was established with a knife. Took us through skin only. Dull trocar took us into the joint. The scope was placed through the lateral portal. Medial portal and ultimately established using a spinal needle followed by a knife through skin, followed by a dull trocar into the joint. Probe was placed to the medial portal. Patellofemoral joint: Moderate/ significant arthritis was noted. Patella tracked nicely. No significant plica noted. Medial and lateral gutter: No loose bodies or pathology noted. Mild bone spurri ng Intercondylar notch: ACL appeared within normal limits. Nice resting tension. No loose bodies or cystic changes noted. Medial compartment: Chondral surfaces were arthritic with grade 2 and 3 ch anges.. Complex medial meniscus tear noted and compartment fully probed. This tear extended from the root to the midportion. It was degenerative and displaced. She underwent partial medial meniscectomy back to stable tissue Lateral compartment: Chondral surfaces are within normal limits. No obvious lateral meniscus tear noted, and compartment fully probed Posterior medial compartment: No loose bodies or other pathology noted. Posterior lateral compartment: Could not be ascertained. Knee arthritis would not allow visualization Arthroscopic pictures were taken and saved throughout the procedure. Knee was drained of excess fluid. Arthroscopic instruments were removed. Arthroscopic portals closed with simple sutures of 4-0 nylon. Knee joint injected with a combination of local anesthetic and Duramorph. sterile bandage was applied. Patient was transferred to the room bed and recovery room in satisfactory condition. They will be discharged to home when stable, follow-up in the office in 7-10 days. Patient and the family understand discharge instructions, all of their questions answered. Aspirin 81 mg twice a day will be recommended for DVT prevention This note was generated with [employer] dictation software. It may contain incorrect words, spelling, and punctuation that were not noted in checking the note before signing.
[2020-08-28] MEDS: HYDROcodone Bitartrate/Apap 5/325 Tablet PO (16:22)
== END 2020-08-28 17:24 | disposition home or self-care (01) ==
LOC: SDC 11:33 → AC 11:35
PROVIDERS: PCP Internal Medicine; Referring Provider Orthopaedic Surgery; Visit Provider Orthopaedic Surgery
PROC: (CPT 29870; principal; 2020-08-28 12:40)
DX: S83.232A Complex tear of medial meniscus, current injury, left knee, initial encounter (principal); X58.XXXA Exposure to other specified factors, initial encounter; M17.12 Unilateral primary osteoarthritis, left knee; I10 Essential (primary) hypertension; E07.9 Disorder of thyroid, unspecified; E78.00 Pure hypercholesterolemia, unspecified; D64.9 Anemia, unspecified; M10.9 Gout, unspecified; K21.9 Gastro-esophageal reflux disease without esophagitis; F32.9 Major depressive disorder, single episode, unspecified; E66.9 Obesity, unspecified; Z68.36 Body mass index [BMI] 36.0-36.9, adult; Z79.1 Long term (current) use of non-steroidal anti-inflammatories (NSAID); Z79.899 Other long term (current) drug therapy; Z20.828 Contact with and (suspected) exposure to other viral communicable diseases
CPT/HCPCS: 01400; 29881; 87426; C9803; J7120; J2405

== ENCOUNTER → 2020-09-04 14:28 | Outpatient (CLI) | payer MEDICAID, SELFPAY ==
[2020-08-28 12:00] VITALS: BMI 35.7
--- NOTE | 2020-09-04 14:32 | VDLE_ITS ---
Reason For Study: LLE PAIN RIGHT LEFT CFV is compressible, spontaneous, phasic, GSV is normal. competent and demonstrates normal CFV is compressible, spontaneous, phasic, augmentation. competent, and demonstrates normal Procedure augmentation. This is a venous duplex using B-mode, color FV is compressible, spontaneous, phasic, flow and spectral Doppler. competent and demonstrates normal Exam performed in department. augmentation. The exam was diagnostic. POP V is compressible, spontaneous, phasic, A preliminary report was called and/or faxed competent and demonstrates normal to TRIPP Rodriguez @ [phone]. augmentation. T/P Trunk is compressible. PTV is compressible. LT PerV is compressible. Interpretation Summary Deep veins of the left lower extremity are patent and compressible segmentally. There is no evidence of left lower extremity deep vein thrombosis. Valvular competence appears intact within the proximal deep venous system on the left . The left great saphenous vein appears patent and compressible segmentally. Ordering Physician: Lisa Covarrubias Referring Physician: Marcelle Moseley Performed By: Latisha Zuleta, SHELIA, RVT
== END ==
PROVIDERS: PCP Internal Medicine; Referring Provider Registered Nurse; Visit Provider Registered Nurse
DX: M79.662 Pain in left lower leg (principal)
CPT/HCPCS: 93971

== ENCOUNTER → 2020-12-09 14:09 | Outpatient (CLI) | payer MEDICAID, SELFPAY ==
[2020-08-28 12:00] VITALS: BMI 35.7
[2020-12-09 15:09] LABS: Hematocrit 41.3 % (37-47); Hemoglobin 12.8 g/dL (12.0-15.0)
[2020-12-09 16:21] LABS: Iron 68 ug/dL (50-170); Iron Binding Capacity,Total 356 ug/dL (250-450); PERCENT IRON SATURATION 19.1 % (15.0-55.0)
== END ==
PROVIDERS: PCP Internal Medicine; Referring Provider Internal Medicine; Visit Provider Internal Medicine
DX: D64.9 Anemia, unspecified (principal)
CPT/HCPCS: 36415; 83540; 83550; 85014; 85018

== ENCOUNTER → 2021-01-15 15:08 | Outpatient (CLI) | payer MEDICAID, SELFPAY ==
[2020-08-28 12:00] VITALS: BMI 35.7
[2021-01-15 15:41] LABS: CREATININE FINGERSTICK 1.1 mg/dL (0.55-1.02)
--- NOTE | 2021-01-15 16:00 | MRI_ITS ---
STUDY: MRI LUMBAR SPINE WITHOUT CONTRAST REASON FOR EXAM: Female, 65 years old. Spondylolisthesis TECHNIQUE: Standardized fat and water weighted pulse sequences were obtained in the sagittal and axial planes. COMPARISON: 09 February 2018 FINDINGS: T10-T11: There is narrowing of the disc. There may be a broad central disc protrusion. There is thickening of ligamentum flavum which appears to contribute to mild acquired canal stenosis without impingement of the spinal cord at this level. Neural foramina appear to be patent. T11-T12: There is narrowing of the disc. There may be a broad central disc protrusion. There is thickening of ligamentum flavum which appears to contribute to minimal acquired canal stenosis without impingement of the spinal cord at this level. Neural foramina appear to be patent. T12-L1: There is narrowing of the disc. The neural foramina are patent. There is no significant central acquired canal stenosis. Normal lumbar lordosis. There is no substantial scoliosis. Normal conus medullaris that terminates at the L1-2 level. L1-2: Normal endplates. Normal disc height, signal and morphology. Normal bilateral facet joints. Normal central canal and bilateral lateral recesses. Normal bilateral intervertebral neural foramina. There is abnormal T1 and T2 hyperintensity within the L1 and L2 vertebral bodies that suppresses on the STIR images suggesting this probably represents some fatty infiltration of the marrow. L2-3: There is mild annular disk bulge and osteophyte complex. There is mild degenerative arthropathy of the facet joints. Bilateral neuroforamina are narrowed without MR evidence for nerve impingement. There is no significant central canal stenosis. L3-4: There is mild annular disk bulge and osteophyte complex. There is mild degenerative arthropathy of the facet joints. Bilateral neuroforamina are narrowed without MR evidence for nerve impingement. There is no significant central canal stenosis. L4-5: There is mild annular disk bulge and osteophyte complex. There is mild degenerative arthropathy of the facet joints. Bilateral neuroforamina are narrowed without MR evidence for nerve impingement. There is no significant central canal stenosis. L5-S1: L5 is displaced anteriorly on L1 by 3 mm similar to 2018. L5-S1 is decompressed with laminectomies and dorsally fused with pedicular screws. For details of hardware refer to CT or radiographic imaging as MR is not able to evaluate metal. Canal is decompressed and thecal sac is fully patent. Right lateral recess is normal. Left lateral recess is occupied by indistinct low T1 tissue which involves the left traversing S1 nerve root. Foramina are moderately stenotic bilaterally. There is a increased signal within the sacrum that probably represents fatty infiltration of the marrow.. There is abnormal T1 and T2 hyperintensity within the L2, L3, L4 and L5 vertebral bodies that suppresses with fat suppression suggesting fatty infiltration of the marrow. Normal visualized paraspinous soft tissue structures. MRI/Spine Lumbar (Routine) IMPRESSION: 1. Fully decompressed L5-S1 thecal sac with laminectomy and pedicular screw fusion. 2. L5-S1 Left lateral recess soft tissue, probably granulation, in relation to left S1 traversing nerve root. This can be further evaluated with contrast. Electronically Signed: Mihir Lee MD at 20:38 EDT Tel , Service support ,
== END ==
PROVIDERS: PCP Internal Medicine; Referring Provider Nurse Practitioner; Visit Provider Nurse Practitioner
DX: M43.16 Spondylolisthesis, lumbar region (principal)
CPT/HCPCS: 72148

== ENCOUNTER → 2021-04-05 15:52 | Outpatient (CLI) | payer MEDICAID, SELFPAY ==
[2021-02-01 10:05] VITALS: BMI 36.5
--- NOTE | 2021-04-05 15:53 | BI_ITS ---
MAMMOGRAPHY - BILATERAL SCREENING 3-D TOMOSYNTHESIS REASON FOR EXAM: Female, 65 years old. breast cancer screening PERTINENT HISTORY: No significant family history. TECHNIQUE: 2-D mammograms and 3-D Tomosynthesis of the breast (s) were performed. CAD was performed. COMPARISON: 06/20/2019 FINDINGS: The breast composition is of scattered fibroglandular tissue. Scattered benign calcifications are seen. No dense spiculated masses or suspicious microcalcifications are identified. No architectural distortion is identified. There is no skin thickening or retraction. Benign-appearing lymph nodes seen in the axillary areas bilaterally. There has been no significant change since the prior study since 06/20/2019 BI/SCRN MAMM (CAD)W/ANNA BILAT IMPRESSION: No mammographic signs of malignancy. Routine yearly mammograms recommended. ASSESSMENT CATEGORY: BIRADS Category 1: Negative. A letter regarding these results will be sent to the patient by the facility within 30 days. FOLLOW UP RECOMMENDATION: Yearly follow up mammogram recommended. (A) Approximately 10% of breast cancers are not detected by mammography. A normal mammogram should not delay biopsy of a clinically suspicious abnormality. Electronically Signed: Ciro Arauz, at 12:34 EDT Tel , Service support ,
== END ==
PROVIDERS: PCP Internal Medicine; Referring Provider Internal Medicine; Visit Provider Internal Medicine
DX: Z12.31 Encounter for screening mammogram for malignant neoplasm of breast (principal)
CPT/HCPCS: 77063; 77067

== ENCOUNTER → 2021-08-02 10:00 | Outpatient (CLI) | payer MEDICARE, SELFPAY ==
[2021-08-02 12:38] LABS: Vitamin D,25 Hydroxy 31.2 ng/mL
[2021-08-02 13:06] LABS: Cholesterol 268 mg/dL (200); Free T3 2.2 pg/mL (2.18-3.98); High Density Lipoprotein 60 mg/dL; T4 Free Direct 0.87 ng/dL (0.76-1.46); Thyroid Stim Hormone (TSH) 1.75 uIU/mL (0.358-3.74); Triglycerides 180 mg/dL; Very Low Density Lipoprotein 36 mg/dL (5-40)
== END ==
PROVIDERS: PCP Internal Medicine; Referring Provider Internal Medicine; Visit Provider Internal Medicine
DX: I10 Essential (primary) hypertension (principal); E78.5 Hyperlipidemia, unspecified; E03.9 Hypothyroidism, unspecified; E55.9 Vitamin D deficiency, unspecified; K21.9 Gastro-esophageal reflux disease without esophagitis
CPT/HCPCS: 36415; 80061; 82306; 84439; 84443; 84481

== ENCOUNTER → 2021-08-25 16:33 | Outpatient (CLI) | payer MEDICARE, MEDICAID, SELFPAY ==
--- NOTE | 2021-08-25 16:40 | CT_ITS ---
INDICATION: SPONDYLOLISTHESIS EXAMINATION: CT LUMBAR SPINE - CT Spine Lumbar W/O Contrast Injection TECHNIQUE: Helically acquired images were obtained of the lumbar spine. 2D reformats were reviewed. A radiation dose optimization technique was used for this scan. IV Contrast dosage and agent: None. COMPARISON: Lumbar spine x-rays 01/15/2021 and MRI lumbar spine obtained 08/25/2021 FINDINGS: Previously seen screws through the S1 pedicles and vertebral body have been removed. Tract is still visible. Irregularity of the L5-S1 facet joints with limited overlap. There is a intervertebral disc spacer at L5-S1. Large laminectomies L4 and L5 bilaterally. Limited assessment of the central canal due to streak artifact from hardware as well as unenhanced CT technique. More proximal lumbar spine intervertebral disc spacing and facet joints are within normal limits for age with mild degenerative changes noted. Moderately advanced degenerative endplate changes lower thoracic spine. Prominent intimal calcifications abdominal aorta. Clips right upper quadrant from cholecystectomy. There is a incompletely visualized large hiatal hernia with stomach fundus within the thorax. No fracture or focal osseous lesion. CT/Spine Lumbar without Contrast IMPRESSION: Postsurgical changes and degenerative changes as above. Electronically Signed: Marquis Felix DO at 0:02 EST Tel , Service support ,
--- NOTE | 2021-08-25 16:51 | MRI_ITS ---
STUDY: MRI LUMBAR SPINE WITH AND WITHOUT CONTRAST REASON FOR EXAM: Female, 66 years old. S/P LUMBAR FUSION TECHNIQUE: Standardized fat and water weighted pulse sequences were obtained in the sagittal and axial planes. 17ML IV DOTAREM, LOW BACK PAIN was administered for the contrast portion of the examination. COMPARISON: None FINDINGS: T12-L1: Normal endplates. Normal disc height, hydration and morphology. Normal bilateral facet joints. Normal central canal and bilateral lateral recesses. Normal bilateral intervertebral neural foramina. Normal lumbar lordosis. There is no substantial scoliosis. Normal conus medullaris that terminates at the L1 level. L1-2: Normal endplates. Normal disc height, hydration and morphology. Normal bilateral facet joints. Normal central canal and bilateral lateral recesses. Normal bilateral intervertebral neural foramina. L2-3: Normal endplates. Normal disc height, hydration and morphology. Normal bilateral facet joints. Normal central canal and bilateral lateral recesses. Normal bilateral intervertebral neural foramina. L3-4: Bilateral laminectomy. Endplate spondylosis. Decreased disc height and small circumferential disc bulge. Degenerative changes of the bilateral facet joints. Mild narrowing of the bilateral intervertebral neural foramina. L4-5: Laminectomy and posterior fusion. The hardware is in good position. There is no significant spinal canal or neuroforaminal stenosis. L5-S1: Laminectomy and posterior fusion. There is no significant spinal canal or neuroforaminal stenosis. Normal visualized sacral ala. Normal visualized paraspinous soft tissue structures. MRI/Spine Lumbar W/WO Contrast IMPRESSION: Multilevel degenerative changes, as described above. Electronically Signed: Qing Kelly MD at 2:25 EST Tel , Service support ,
[2021-08-25 17:16] LABS: CREATININE FINGERSTICK 0.6 mg/dL (0.55-1.02); EGFR FINGERSTICK > 60.0000 mL/min (>60)
== END ==
PROVIDERS: PCP Internal Medicine; Referring Provider Orthopaedic Surgery; Visit Provider Orthopaedic Surgery
DX: M43.16 Spondylolisthesis, lumbar region (principal); Z98.1 Arthrodesis status
CPT/HCPCS: 72131; 72158; A9575

== ENCOUNTER 2022-01-14 17:11 | Outpatient (CLI) | payer MEDICARE, SELFPAY ==
--- NOTE | 2022-01-14 17:30 | MRI_ITS ---
STUDY: MRI LUMBAR SPINE WITHOUT CONTRAST REASON FOR EXAM: Female, 66 years old. STENOSIS TECHNIQUE: Standardized fat and water weighted pulse sequences were obtained in the sagittal and axial planes. COMPARISON: MRI lumbar spine with and without contrast 08/25/2021. FINDINGS: T9-T10 and T10-T11: (Sagittal only). Mild irregularities of the vertebral endplates. Moderate disc space height narrowing. Normal central canal and bilateral intervertebral neural foramina. T11-T12: (Sagittal only). Pronounced anterior disc space height narrowing. Minimal anterior wedging of T12 superior endplate is presumably from remote injury and is unchanged. No ventral extradural defect. Normal central canal and bilateral intervertebral neural foramina. T12-L1: (Sagittal only). Normal endplates. Moderate anterior disc space height narrowing. Normal central canal and bilateral intervertebral neural foramina. Normal lumbar lordosis. There is no substantial scoliosis. Normal conus medullaris that terminates at the mid L1 vertebral body level. L1-2: Normal endplates. Normal disc height, hydration and morphology. Normal bilateral facet joints. Normal central canal and bilateral lateral recesses. Normal bilateral intervertebral neural foramina. L2-3: Normal endplates. Normal disc height, hydration and morphology. Normal bilateral facet joints. Normal central canal and bilateral lateral recesses. Normal bilateral intervertebral neural foramina. L3-4: Normal endplates. Moderate disc space height narrowing. Suspicious posterior midline and caudal disc extrusion. Mild central canal stenosis is unchanged. Postsurgical absence of the L4 spinous processes and lamina. Pedicular screws at L4 causing signal distortion artifacts. Moderate stenosis of the left intervertebral neural foramen, previously mild. Mild stenosis of the right intervertebral neural foramen, previously normal. L4-5: Pedicular screws and rods causing signal distortion artifacts. Normal endplates. Normal disc height. Postsurgical absence of the spinous processes and lamina. Capacious central canal and bilateral lateral recesses. Normal bilateral intervertebral neural foramina. L5-S1: Disc implant inside the disc space is unchanged. Postsurgical absence of the spinous process and lamina. Capacious central canal and bilateral lateral recesses. L5 pedicular screws and rods causing signal distortion artifacts on the bilateral intervertebral neural foramina. Normal visualized sacral ala. Normal visualized paraspinous soft tissue structures. MRI/Spine Lumbar (Routine) IMPRESSION: 1. Small L3-L4 posterior midline and caudal disc extrusion but no obvious nerve root displacement of either L4 nerve root sleeve. Additionally, moderate stenosis of the left intervertebral neural foramen, previously mild and mild stenosis of the right intervertebral neural foramen, previously normal. 2. No other additional findings or significant changes since 08/25/2021. Electronically Signed: Ron Junior MD at 20:21 EDT ,
== END 2022-01-14 23:59 | disposition home or self-care (01) ==
LOC: MRI 17:12
PROVIDERS: PCP Internal Medicine; Visit Provider Orthopaedic Surgery
DX: M48.061 Spinal stenosis, lumbar region without neurogenic claudication (principal); M46.96 Unspecified inflammatory spondylopathy, lumbar region; M96.1 Postlaminectomy syndrome, not elsewhere classified
CPT/HCPCS: 72148

== ENCOUNTER → 2022-02-17 | Outpatient (CLI) | payer MEDICARE, SELFPAY ==
[2022-02-17 12:28] LABS: Absolute Lymphocyte Count 2.29 X10^3/uL (0.83-4.51); Absolute Neutrophil Count 6.7 X10^3/uL (2.0-7.7); Basophil# 0.07 X10^3/uL; Basophil% 0.7 % (0-1); Eosinophil# 0.13 X10^3/uL; Eosinophils% 1.3 % (0-5); Hematocrit 41.2 % (37-47); Hemoglobin 13.3 g/dL (12.0-15.0); Lymphocyte # 2.29 X10^3/ul (0.83-4.51); Lymphocyte % 22.5 % (19-41); Mean Corp Hgb Conc 32.3 g/dL (32-36); Mean Corpuscular Hgb 28.7 pg (27.0-32.0); Mean Platelet Vol. 10.4 fl (6.2-12.0); Monocyte% 8.9 % (0-10); NRBC Flagged by Analyzer 0 % (0-5); Neutrophil # 6.73 X10^3/uL (2.7-7.7); Neutrophil % 66.2 % (47-70); Platelet Count 321 K/mm3 (150-450); RBC Distribution Width CV 14.1 % (11.6-14.6); RBC Distribution Width SD 45.7 fl (35.1-43.9); Red Blood Count 4.63 M/mm3 (4.2-5.4); White Blood Count 10.2 K/mm3 (4.4-11.0)
[2022-02-17 12:36] LABS: Vitamin D,25 Hydroxy 35.1 ng/mL
[2022-02-17 12:43] LABS: ALB/GLOB Ratio 1.2 RATIO (0.9-2.4); AST(SGOT) 18 U/L (15-37); Alanine Aminotransfer ALT/SGPT 28 U/L (13-56); Alkaline Phosphatase 75 U/L (45-117); Anion Gap 5 (5-15); BUN 14 mg/dL (7-18); BUN/Creat Ratio 15.6 RATIO (10-20); Calcium,Total 8.8 mg/dL (8.5-10.1); Chloride 102 mmol/L (98-107); Cholesterol 265 mg/dL (200); EST Glomerular Filtration Rate 67 mL/min (>60); Est Glom Filt Rate - Afr Amer 81 mL/min (>60); Free T3 2.3 pg/mL (2.18-3.98); Globulin 3.2 g/dL (2.2-4.2); Glucose 100 mg/dL (74-106); High Density Lipoprotein 55 mg/dL; Protein, Total 7.2 g/dL (6.4-8.2); Sodium Level 138 mmol/L (136-145); Thyroid Stim Hormone (TSH) 3.65 uIU/mL (0.358-3.74); Triglycerides 166 mg/dL; Very Low Density Lipoprotein 33 mg/dL (5-40)
== END | disposition home or self-care (01) ==
LOC: BIMLAB 09:55
PROVIDERS: PCP Internal Medicine; Referring Provider Internal Medicine; Visit Provider Internal Medicine
DX: J30.2 Other seasonal allergic rhinitis (principal); E87.6 Hypokalemia; E55.9 Vitamin D deficiency, unspecified; E03.9 Hypothyroidism, unspecified; E78.5 Hyperlipidemia, unspecified; I10 Essential (primary) hypertension
CPT/HCPCS: 36415; 80053; 80061; 82306; 84439; 84443; 84481; 85025

== ENCOUNTER → 2023-01-21 | Outpatient (CLI) | payer MEDICARE, SELFPAY ==
[2023-01-21 11:51] LABS: Absolute Lymphocyte Count 1.86 X10^3/uL (0.83-4.51); Absolute Neutrophil Count 4.8 X10^3/uL (2.0-7.7); Basophil# 0.08 X10^3/uL; Basophil% 1.1 % (0-1); Eosinophil# 0.17 X10^3/uL; Eosinophils% 2.3 % (0-5); Hemoglobin 11.9 g/dL (12.0-15.0); Lymphocyte # 1.86 X10^3/ul (0.83-4.51); Lymphocyte % 25.1 % (19-41); Mean Corp Hgb Conc 31.3 g/dL (32-36); Mean Corpuscular Hgb 27.5 pg (27.0-32.0); Mean Platelet Vol. 10.1 fl (6.2-12.0); Monocyte# 0.53 X10^3/uL; Monocyte% 7.2 % (0-10); NRBC Flagged by Analyzer 0 % (0-5); Neutrophil # 4.75 X10^3/uL (2.7-7.7); Neutrophil % 64.2 % (47-70); Platelet Count 323 K/mm3 (150-450); RBC Distribution Width CV 14.6 % (11.6-14.6); RBC Distribution Width SD 47.1 fl (35.1-43.9); Red Blood Count 4.32 M/mm3 (4.2-5.4); White Blood Count 7.4 K/mm3 (4.4-11.0)
[2023-01-21 12:42] LABS: ALB/GLOB Ratio 1.1 RATIO (0.9-2.4); AST(SGOT) 16 U/L (15-37); Alanine Aminotransfer ALT/SGPT 19 U/L (13-56); Albumin, Serum 3.8 g/dL (3.2-5.0); Alkaline Phosphatase 92 U/L (45-117); Anion Gap 6 (5-15); BUN 13 mg/dL (7-18); BUN/Creat Ratio 16.6 RATIO (10-20); Calcium,Total 8.9 mg/dL (8.5-10.1); Chloride 105 mmol/L (98-107); Cholesterol 262 mg/dL (200); Creatinine, Serum 0.78 mg/dL (0.55-1.02); EST Glomerular Filtration Rate 78 mL/min (>60); Est Glom Filt Rate - Afr Amer 94 mL/min (>60); Free T3 2.1 pg/mL (2.18-3.98); Globulin 3.5 g/dL (2.2-4.2); Glucose 82 mg/dL (74-106); High Density Lipoprotein 64 mg/dL; Potassium 3.5 mmol/L (3.5-5.1); Protein, Total 7.3 g/dL (6.4-8.2); Sodium Level 140 mmol/L (136-145); T4 Free Direct 0.83 ng/dL (0.76-1.46); Thyroid Stim Hormone (TSH) 1.22 uIU/mL (0.358-3.74); Triglycerides 113 mg/dL; Very Low Density Lipoprotein 23 mg/dL (5-40)
[2023-01-23 08:44] LABS: Vitamin D,25 Hydroxy 27.8 ng/mL
== END | disposition home or self-care (01) ==
LOC: LAB 10:53
PROVIDERS: PCP Internal Medicine; Visit Provider Internal Medicine
DX: E03.9 Hypothyroidism, unspecified (principal); E78.5 Hyperlipidemia, unspecified; I10 Essential (primary) hypertension; E55.9 Vitamin D deficiency, unspecified
CPT/HCPCS: 36415; 80053; 80061; 82306; 84439; 84443; 84481; 85025

== ENCOUNTER → 2023-03-21 | Outpatient (CLI) | payer MEDICARE, SELFPAY ==
--- NOTE | 2023-03-21 10:05 | RAD_ITS ---
EXAMINATION: Air contrast UPPER GI SERIES INDICATION: Female, 67 years left-sided abdominal pain. History of Ragland''s esophagus. FLUOROSCOPY TIME (if supplied): (0:36) minutes/seconds. 16 spot images were obtained. 30.67 mGy TECHNIQUE: Radiographic and fluoroscopic images of the distal esophagus, stomach, and proximal small intestine were obtained following the oral ingestion of barium. COMPARISON: None. FINDINGS: The mucosa of the esophagus, stomach and duodenum is normal in appearance without evidence for stricture, ulceration, mass or diverticulum. There is evidence of a large sliding hiatal hernia with gastroesophageal reflux. The remainder of the stomach is unremarkable. No evidence of ulceration. No mass lesion is seen. RAD/Upper GI Dual Contrast IMPRESSION: 1. Large hilar hernia with gastroesophageal reflux. Electronically Signed: Ru Blakely MD at 10:41 EDT ,
== END | disposition home or self-care (01) ==
LOC: RAD 10:01
PROVIDERS: PCP Internal Medicine; Referring Provider Internal Medicine Gastroenterology; Visit Provider Internal Medicine Gastroenterology
DX: R10.84 Generalized abdominal pain (principal)
CPT/HCPCS: 74246

== ENCOUNTER → 2023-07-17 | Outpatient (CLI) | payer MEDICARE, SELFPAY ==
--- NOTE | 2023-07-17 15:16 | CT_ITS ---
EXAM: CT LEFT LOWER EXTREMITY WITHOUT INTRAVENOUS CONTRAST CLINICAL INDICATION: Unilateral post-traumatic osteoarthri*STRIKER AS1* TECHNIQUE: Helically acquired images were obtained of the left lower extremity without intravenous contrast. 2-D reformats were performed by the technologist. CTDIvol = ( 20.10 ) mGy, DLP = ( 1129.30 ) mGycm This CT exam was performed using one or more of the following dose reduction techniques: automated exposure control, adjustment of the mA and/or kV according to patient size, and/or use of iterative reconstruction technique. COMPARISON: No relevant prior studies available. FINDINGS: BONES/JOINTS: Tricompartmental osteoarthritis worse at the medial femorotibial compartment. Plantar calcaneal enthesopathy. No acute fracture or malalignment. No unusual lytic or sclerotic lesions of bone. No osteonecrosis. Normal appearance of the ankle mortise. SOFT TISSUES: Moderate to large suprapatellar joint effusion with no Castro''s cyst. No soft tissue swelling or gas. No radiopaque foreign body. No soft tissue masses or fluid collections. BLADDER: Bladder is unremarkable. OTHER FINDINGS: No free fluid in the pelvis. CT/Extremity Lower without Contra IMPRESSION: Preoperative planning study. Tricompartmental osteoarthritis, worse at the medial femorotibial. Moderate to large suprapatellar joint effusion. compartment. Electronically Signed: Duran Ferguson MD at 22:54 EDT ,
== END | disposition home or self-care (01) ==
LOC: CT 15:12
PROVIDERS: PCP Internal Medicine; Referring Provider Orthopaedic Surgery; Visit Provider Orthopaedic Surgery
DX: M17.32 Unilateral post-traumatic osteoarthritis, left knee (principal)
CPT/HCPCS: 73700

== ENCOUNTER → 2023-08-08 | Outpatient (CLI) | payer MEDICARE, SELFPAY ==
--- NOTE | 2023-08-08 16:22 | BI_ITS ---
MAMMOGRAPHY - BILATERAL SCREENING REASON FOR EXAM: Female, 68 years old. Routine annual screening examination. PERTINENT HISTORY: Aunt with breast cancer. TECHNIQUE: Digital bilateral breast anna (3D mammographic acquisition) in the CC and MLO projections. 2-D mediolateral oblique (MLO) and craniocaudad (CC) views of both breasts were obtained. CAD: Full Field Digital Mammography with Computer Added Detection was performed. COMPARISON: Comparison is made with prior study dated April 05, 2021 and June 20, 2019. FINDINGS: Breast Composition: There are scattered areas of fibroglandular density. There are no dominant masses or suspicious calcifications. Stable fat-containing left axillary lymph node. No other significant abnormalities are identified. There has been no significant change since the prior study. BI/SCRN MAMM (CAD)W/ANNA BILAT IMPRESSION: Stable bilateral screening mammogram. Yearly follow-up mammogram recommended. (A) ASSESSMENT CATEGORY: BIRADS Category 2: Benign. A letter regarding these results will be sent to the patient by the facility within 30 days. Approximately 10% of breast cancers are not detected by mammography. A normal mammogram should not delay biopsy of a clinically suspicious abnormality. [id number] Electronically Signed: Ru Blakely MD at 8:21 EDT ,
== END | disposition home or self-care (01) ==
LOC: OPBI 16:21
PROVIDERS: PCP Internal Medicine; Referring Provider Internal Medicine; Visit Provider Internal Medicine
DX: Z12.31 Encounter for screening mammogram for malignant neoplasm of breast (principal)
CPT/HCPCS: 77063; 77067

== ENCOUNTER → 2023-08-17 | Outpatient (CLI) | payer MEDICARE, SELFPAY ==
[2023-08-17 17:37] LABS: Absolute Lymphocyte Count 2.79 X10^3/uL (0.83-4.51); Absolute Neutrophil Count 5.3 X10^3/uL (2.0-7.7); Basophil# 0.08 X10^3/uL; Basophil% 0.9 % (0-1); Eosinophils% 3.2 % (0-5); Hematocrit 37.5 % (37-47); Hemoglobin 11.5 g/dL (12.0-15.0); Lymphocyte # 2.79 X10^3/ul (0.83-4.51); Mean Corp Hgb Conc 30.7 g/dL (32-36); Mean Corpuscular Hgb 26.6 pg (27.0-32.0); Mean Corpuscular Volume 86.8 fL (81-99); Mean Platelet Vol. 9.8 fl (6.2-12.0); Monocyte# 0.79 X10^3/uL; Monocyte% 8.5 % (0-10); NRBC Flagged by Analyzer 0 % (0-5); Neutrophil % 57.1 % (47-70); Platelet Count 326 K/mm3 (150-450); RBC Distribution Width CV 15.7 % (11.6-14.6); RBC Distribution Width SD 49.7 fl (35.1-43.9); Red Blood Count 4.32 M/mm3 (4.2-5.4); White Blood Count 9.3 K/mm3 (4.4-11.0)
[2023-08-17 17:50] LABS: Vitamin D,25 Hydroxy 34.6 ng/mL
[2023-08-17 18:18] LABS: ALB/GLOB Ratio 1.1 RATIO (0.9-2.4); AST(SGOT) 16 U/L (15-37); Alanine Aminotransfer ALT/SGPT 17 U/L (13-56); Albumin, Serum 3.9 g/dL (3.2-5.0); Alkaline Phosphatase 86 U/L (45-117); Anion Gap 5 (5-15); BUN 17 mg/dL (7-18); BUN/Creat Ratio 15.6 RATIO (10-20); Calcium,Total 8.6 mg/dL (8.5-10.1); Chloride 102 mmol/L (98-107); Cholesterol 248 mg/dL (200); Creatinine, Serum 1.09 mg/dL (0.55-1.02); EST Glomerular Filtration Rate 53 mL/min (>60); Est Glom Filt Rate - Afr Amer 64 mL/min (>60); Free T3 2.5 pg/mL (2.18-3.98); Globulin 3.5 g/dL (2.2-4.2); Glucose 84 mg/dL (74-106); High Density Lipoprotein 69 mg/dL; Potassium 4.3 mmol/L (3.5-5.1); Protein, Total 7.4 g/dL (6.4-8.2); Sodium Level 136 mmol/L (136-145); T4 Free Direct 0.76 ng/dL (0.76-1.46); Thyroid Stim Hormone (TSH) 4.01 uIU/mL (0.358-3.74); Triglycerides 151 mg/dL; Very Low Density Lipoprotein 30 mg/dL (5-40)
== END | disposition home or self-care (01) ==
LOC: LAB 17:01
PROVIDERS: PCP Internal Medicine; Referring Provider Internal Medicine; Visit Provider Internal Medicine
DX: Z01.818 Encounter for other preprocedural examination (principal); Z13.220 Encounter for screening for lipoid disorders; E03.9 Hypothyroidism, unspecified; K21.9 Gastro-esophageal reflux disease without esophagitis; E55.9 Vitamin D deficiency, unspecified; E87.6 Hypokalemia; E78.5 Hyperlipidemia, unspecified; I10 Essential (primary) hypertension
CPT/HCPCS: 36415; 80053; 80061; 82306; 84439; 84443; 84481; 85025

== ENCOUNTER → 2023-09-18 | Outpatient (CLI) | payer MEDICARE, SELFPAY ==
--- NOTE | 2023-09-18 | KNEE_PTH ---
PATIENT: NADYA BLAKE LOC: [facility] U#:[id number] AGE/SX: 68/F ROOM: RE09/18/[address]: Dr. Bj Mann MD : [id number] BED: DIS: 09/18/2023 SPEC #: [id number] RECD: 09/18/23 12:57 STATUS: NATACHA RERuthie #: [id number] HANNAH: 09/18/23 00:[address]: Bj Mann DEPT: SURGICAL PATHOLOGY RECD BY: Wali Guzman ENTERED: 09/18/23 12:57 SP TYPE: TOTAL KNEE OTHR DR: Dr. Marcelle Moseley MD [facility] Tissues: Knee, NOS Procedures: Decalcification bone/plaque Surgery Specimen Level IV HEADER OPERATION: Left total knee arthroplasty PRE-OP DIAGNOSIS: Osteoarthritis left knee TISSUE SUBMITTED: Bone and tissue left knee MICROSCOPIC DIAGNOSIS Bone and tissue of left knee, total knee resection: Severe degenerative joint disease. AM:renee 09/21/2023 MICROSCOPIC DESCRIPTION Slides are reviewed. GROSS DESCRIPTION Received is one container designated bone and soft tissue left knee. The specimen consists of multiple fragments of cook-yellow bone measuring in aggregate 9.5 x 11.0 x 3.0 cm. Also in the specimen container are two pieces of fibrocartilaginous tissue measuring in aggregate 3.5 x 2.5 x 1.0 cm. A number of bony fragments contain articular surfaces consistent with tibial plateau and femoral condyle and displaying prominent osteophyte formation, eburnation and bone erosion. Senior [employer] sections are submitted in two cassettes as follows: 1 - soft tissue, 2 - bone after decalcification. / SJ:renee 09/18/2023 TC:5 [facility]: [id number], [id number]
== END | disposition home or self-care (01) ==
LOC: LABSPEC 12:03
PROVIDERS: PCP Internal Medicine; Visit Provider Orthopaedic Surgery
DX: M17.12 Unilateral primary osteoarthritis, left knee (principal)
CPT/HCPCS: 88305; 88311

== ENCOUNTER → 2023-10-26 | Outpatient (CLI) | payer MEDICARE, SELFPAY ==
--- NOTE | 2023-10-26 14:21 | VDLE_ITS ---
Reason For Study: pain RIGHT LEFT CFV is compressible, spontaneous, phasic, GSV is normal. competent and demonstrates normal CFV is compressible, spontaneous, phasic, augmentation. competent, and demonstrates normal Procedure augmentation. This is a venous duplex using B-mode, color FV is compressible, spontaneous, phasic, flow and spectral Doppler. competent and demonstrates normal Exam performed in department. augmentation. The exam was diagnostic. POP V is compressible, spontaneous, phasic, A preliminary report was called and/or faxed competent and demonstrates normal to Bj Mann. augmentation. T/P Trunk is compressible. PTV is compressible. LT PerV is compressible. Two heterogeneous areas in the gastroc muscle. One measures 1.3 x 4.72 cm in short. The other measures 1.01 x 2.84 cm in short. Areas are nonvascular. Areas are too large to measure in long. Pt had a L total knee replacement Dec 1 per pt. VL/Venous Duplex US, Unilateral Interpretation Summary Deep veins of the left lower extremity are patent and compressible segmentally. There is no evidence of left lower extremity deep vein thrombosis. The left great saphenous vein payton ears patent and compressible segmentally. Two heterogeneous areas in the gastroc muscle. One measures 1.3 x 4.72 cm in sh ort. The other measures 1.01 x 2.84 cm in short. Areas are nonvascular Ordering Physician: Bj Mann Performed By: David Brooke RVT
--- OUTSIDE RECORDS SUMMARY | 2023-10-26 14:41 | XMS RPT_ITS | CCD ---
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 Danielle Tavarez Referring Moisés Tavarez, Ms. Danielle Mena Attending Moisés Moseley, Dr. Marcelle Cho Primary Care Almav ailkian Tavarez, Ms. Danielle Mena Referring Moisés Tavarez, Ms. Danielle Mena Attending Moisés Moseley, Dr. Marcelle Cho Primary Care Almav ailkian Tavarez, Ms. Danielle Mena Referring Moisés Moseley, Dr. Marcelle Cho Primary Care Almav ailkian Tavarez, Ms. Danielle Mena Attending Moisés Tavarez, Ms. Danielle Mena Attending Moisés Tavarez, Ms. Danielle Mena Referring Moisés Moseley, Dr. Marcelle Cho Primary Care Almav ailkian Tavarez, Ms. Danielle Mena Attending Moisés Moseley, Dr. Marcelle Cho Primary [facility] Almav ailkian PCP, Pt States None Referring Unavailable Medications Completed/Discontinued Medications Medication Drug Class(es) Dates Sig (Normalized) Sig (Original) acetaminophen 325 mg / oxyCODONE hydrochloride 5 mg oral tablet (2 sources) Opioid Agonist Start: 09-21-2022 oxyCODONE-Acetamino phen 5-325 MG Oral Tablet TAKE 1 TABLET BY MOUTH 1-2 times DAILY NEEDED FOR PAIN. Quantity: 24 Refills: 0 Ordered: 21-Sep-2022 DO Start : 21-Sep-2022 Active azithromycin 250 mg oral tablet (1 source) Macrolide Antimicrobial Start: 02-17-2022 Azithromycin 250 MG Oral Tablet TAKE 2 TABLETS BY MOUTH ON DAY 1, AND THEN TAKE 1 TABLET BY MOUTH ONCE A DAY ON DAY 2 THROUGH DAY 5 Quantity: 6 Refills: 0 Ordered: 17-Feb-2022 DO Start : 17-Feb-2022 Complete benzonatate 200 mg oral capsule (1 source) Non-narcotic Antitussive Start: 08-31-2022 take 1 capsule by mouth three times daily as needed for cough Benzonatate 200 MG Oral Capsule TAKE 1 CAPSULE BY MOUTH THREE TIMES DAILY NEEDED FOR COUGH Quantity: 20 Refills: 0 Ordered: 31-Aug-2022 DO Start : 31-Aug-2022 Complete citalopram 40 mg oral tablet (4 sources) Serotonin Reuptake Inhibitor Start: 10-18-2018 take 1 tablet by mouth once daily CELEXA 40 MG TABS 1 tablet by mouth once a day citalopram [id number] Micaela Kent codeine phosphate 2 mg/ml / guaiFENesin 20 mg/ml oral solution (2 sources) Opioid Agonist Start: 02-17-2022 take 5 mL by mouth every six hours as needed for cough guaiFENesin-Codeine 100-10 MG/5ML Oral Solution TAKE 5 ML BY MOUTH EVERY 6 HOURS NEEDED FOR COUGH Quantity: 120 Refills: 0 Ordered: 17-Feb-2022 DO Start : 17-Feb-2022 Active dexlansoprazole 60 mg delayed release oral capsule (4 sources) Proton Pump Inhibitor Start: 10-18-2018 take 1 capsule by mouth once daily DEXILANT 60 MG CPDR 1 capsule by mouth once a day dexlansoprazole [id number] Micaela Kent doxepin hydrochloride 25 mg oral capsule (2 sources) Tricyclic Antidepressant Start: 08-31-2022 Doxepin HCl - 25 MG Oral Capsule Quantity: 90 Refills: 0 Ordered: 27-Oct-2022 DO Start : 31-Aug-2022 Active Problems Active Problems Problem Classification Problem Date Documented Date Episodic/Chronic Abdominal hernia (2 sources) Diaphragmatic hernia without obstruction or gangrene; Translations: [Diaphragmatic hernia without obstruction or gangrene] Onset: 09-14-2018 Episodic Acquired foot deformities (2 sources) Other hammer toe(s) (acquired), left foot; Translations: [Other hammer toe(s) (acquired), left foot] Onset: 09-14-2018 Chronic Disorders of lipid metabolism (2 sources) Hyperlipidemia, unspecified; Translations: [Hyperlipidemia, unspecified] Onset: 09-14-2018 Chronic Esophageal disorders (2 sources) Ragland's esophagus without dysplasia; Translations: [Ragland's esophagus without dysplasia] Onset: 09-14-2018 Chronic Essential hypertension (2 sources) Essential (primary) hypertension; Translations: [Essential (primary) hypertension] Onset: 09-14-2018 Chronic Osteoarthritis (7 sources) Unspecified osteoarthritis, unspecified site; Translations: [Primary gonarthrosis, bilateral] Onset: 09-14-2018 Chronic Other fractures (1 source) Pseudoarthrosis of spine; Translations: [Unspecified fracture of unspecified lumbar vertebra, subsequent encounter for fracture with nonunion] Onset: 02-03-2022 02-03-2022 Episodic Other non-traumatic joint disorders (4 sources) Pain in right knee; Translations: [Pain in both knees, unspecified chronicity] Episodic Residual codes; unclassified (2 sources) Acquired absence of both cervix and uterus; Translations: [Acquired absence of both cervix and uterus] Onset: 09-14-2018 Episodic Residual codes; unclassified (2 sources) Acquired absence of other specified parts of digestive tract; Translations: [Acquired absence of other specified parts of digestive tract] Onset: 09-14-2018 Episodic Spondylosis; intervertebral disc disorders; other back problems (1 source) Herniation of nucleus pulposus; Translations: [Other intervertebral disc displacement, thoracic region] Onset: 10-18-2018 10-18-2018 Chronic Thyroid disorders (2 sources) Disorder of thyroid, unspecified; Translations: [Disorder of thyroid, unspecified] Onset: 09-14-2018 Episodic Past or Other Problems Problem Classification Problem Date Documented Date Episodic/Chronic Other acquired deformities (1 source) Lumbar spondylolisthesis; Translations: [Spondylolisthesis, lumbar region] Onset: 1 10-29-2020 Episodic Other acquired deformities (1 source) Spondylolisthesis L5/S1 level; Translations: [Spondylolisthesis, lumbosacral region] Onset: 9 10-18-2018 Episodic Other bone disease and musculoskeletal deformities (1 source) Disorder of bone; Translations: [Disorder of bone density and structure, unspecified] Onset: 9 10-18-2018 Episodic Other connective tissue disease (1 source) History of lumbar fusion; Translations: [Arthrodesis status] Onset: 9 11-22-2018 Episodic Spondylosis; intervertebral disc disorders; other back problems (1 source) Spinal stenosis of lumbar region; Translations: [Spinal stenosis, lumbar region with neurogenic claudication] Onset: 9 10-18-2018 Episodic Unclassified (1 source) Problem Results Test Name Value Interpretation Reference Range Facil ity Vital Signs Date Time Vital Sign Value Performing Clinician Facility 01-10-2023 16:05-0400 Body temperature 97.6 [degF] Marcelle Moseley Work Phone: [facility] 300 Work Phone: 10-18-2022 15:08-0500 Body temperature 97.1 [degF] Marcelle Moseley Work Phone: [facility] 300 Work Phone: 07-12-2022 08:24-0400 Body mass index (BMI) [Ratio] 33.76 kg/m2 Marcelle Moseley Work Phone: [facility] 300 Work Phone: 07-12-2022 08:24-0400 Body surface area Derived from formula 1.73 m2 Marcelle Moseley Work Phone: [facility] 300 Work Phone: 07-12-2022 08:24-0400 Body temperature 97.1 [degF] Marcelle Moseley Work Phone: [facility] 300 Work Phone: 07-12-2022 08:24-0400 Body weight 77.11 kg Marcelle Moseley Work Phone: [facility] 300 Work Phone: 02-14-2022 09:24-0400 Body height 151.13 cm Marcelle Moseley Work Phone: [facility] 300 Work Phone: 02-14-2022 09:24-0400 Body mass index (BMI) [Ratio] 35.95 kg/m2 Marcelle Moseley Work Phone: [facility] 300 Work Phone: 02-14-2022 09:24-0400 Body surface area Derived from formula 1.78 m2 Marcelle Moseley Work Phone: [facility] 300 Work Phone: 02-14-2022 09:24-0400 Body temperature 97.5 [degF] Marcelle Moseley Work Phone: [facility] 300 Work Phone: 02-14-2022 09:24-0400 Body weight 82.1 kg Marcelle Moseley Work Phone: [facility] 300 Work Phone: NEGATED: Highlighted [id number] 13:40-0400 Body height 152.4 cm Sylvia Ram AT [facility] Work Phone: NEGATED: Highlighted [id number] 13:40-0400 Body height 152 cm Sylvia Kelbach AT [facility] Work Phone: NEGATED: Highlighted [id number] 13:40-0400 Body mass index (BMI) [Ratio] 36.06 kg/m2 Sylvia Kelbach AT [facility] Work Phone: NEGATED: Highlighted [id number] 13:40-0400 Body weight 83.46 kg Sylvia Kelbach AT [facility] Work Phone: NEGATED: Highlighted [id number] 13:40-0400 Body weight 84 kg Sylvia Ram AT [facility] Work Phone: NEGATED: Highlighted [id number] 13:40-0400 Diastolic blood pressure 84 mm[Hg] Sylvia Ram AT [facility] Work Phone: NEGATED: Highlighted [id number] 13:40-0400 Systolic blood pressure 134 mm[Hg] Sylvia Ram AT [facility] Work Phone: Encounters Encounter Date Encounter Type Care Provider Facility Start: 01-10-2023 Office outpatient vi sit 15 minutes Marcelle M Pradip Work Phone: -[facility] 300 Work Phone: Start: 01-10-2023 ambulatory Ms. Danielle Tavarez Nasrin cility:[phone] Start: 10-18-2022 Patient encounter procedure Marcelle M Pradip Work Phone: -[facility] 300 Work Phone: Start: 10-18-2022 ambulatory Ms. Danielle Mena Corby Alexandra cility:[phone] Start: 07-12-2022 ambulatory Ms. Danielle Tavarez Nasrin cility:[phone] Start: 07-12-2022 Office outpatient vi sit 15 minutes Marcelle M Pradip Work Phone: [facility] 300 Work Phone: Start: 05-17-2022 ambulatory Ms. Danielle Mena Corby Alexandra cility:[phone] Start: 02-14-2022 Patient encounter procedure Marcelle M Pradip Work Phone: [facility] 300 Work Phone: Start: 02-14-2022 ambulatory Ms. Danielle Mena Corby Alexandra cility:[phone] Start: 09-14-2018 Patient encounter procedure [facility] Start: 06-30-2017 End: 06-30-2017 Ambulatory MARIO MCCARTHY [facility] Start: 04-21-2017 End: 04-21-2017 Ambulatory MARIO Bae FABIO [facility] Procedures Date Procedure Procedure Detail Performing Clinician Start: 02-03-2022 End: 02-04-2022 BP scrn perf rec interval Leonor Campos [employer]AD MATERIAL HAND[employer]LTRY SCALDER Work Phone: Start: 02-03-2022 End: 02-04-2022 Calc BMI out nrm christopher nof/u Leonor Gomezitgautam [employer]AD MATERIAL HAND[employer]LTRY [employer]DER Work Phone: Start: 02-03-2022 End: 02-04-2022 Current tobacco non-user cad cap copd pv dm Leonor Gomezitgautam LEAD MATERIAL HAND[employer]LTRY SCALDER Work Phone: Start: 02-03-2022 End: 02-04-2022 Docrev cur meds by rachana Gomezitgautam LEAD MATERIAL HAND[employer]LTRY [employer]ALDER Work Phone: Start: 02-03-2022 End: 02-04-2022 Falls plan of care not done for unspecified reasons Leonor Campos LEAD MATERIAL HAND[employer]LTRY SCALDER Work Phone: Start: 02-03-2022 End: 02-04-2022 Falls risk not documented - reason not given Leonor Campos LEAD MATERIAL HAND[employer]LTRY SCALDER Work Phone: Start: 02-03-2022 End: 02-04-2022 Patient encounter procedure Leonor Campos [employer] MATERIAL HAND[employer]LTRY [employer]ALDER Work Phone: Start: 02-03-2022 End: 02-04-2022 Pos pain assess no f/u doc Leonor Campos LEAD MATERIAL HAND[employer]LTRY SCALDER Work Phone: Start: 02-03-2022 End: 02-04-2022 Pt falls assess docd 2/> falls/fall w/injury/yr Leonor Campos [employer] MATERIAL HAND[employer]LTRY SCALDER Work Phone: Start: 02-03-2022 End: 02-03-2022 Radex spine lumbosacral minimum 4 views Leonor Opsitnick LEAD MATERIAL HANDLER[employer]LTRY SCALDER Work Phone: NEGATED: Highlighted rowStart: 02-03-2022 End: 02-03-2022 Documentation of current medications Sylvia Ram AT Plan of Treatment Date Care Activity Detail Author Start: 04-04-2023 FUV, Provider: Danielle Tavarez, Status: Pen, Time: 4:00 PM FUV, Provider: Danielle Tavarez, Status: Pen, Time: 4:[address] [facility] 300 Work Phone: Start: 01-10-2023 FUV, Provider: Danielle Tavarez, Status: Pen, Time: 4:00 PM FUV, Provider: Danielle Tavarez, Status: Pen, Time: 4:[address] [facility] 300 Work Phone: Start: 05-17-2022 FUV, Provider: Danielle Tavarez, Status: Pen, Time: 10:00 AM FUV, Provider: Danielle Tavarez, Status: Pen, Time: 10:00 AM [facility] 300 Work Phone: Start: 02-15-2022 End: 02-15-2022 Patient encounter procedure Appointment [facility] Work Phone: Start: 02-03-2022 End: 02-03-2022 Ct lumbar spine w/o contrast material CT lumbar without contrast [facility] Work Phone: Payers Date Payer Category Payer Unknown [id number] 1955 Unknown [id number] 2.16. [id number] 1955 Unknown [id number] 2.16. [id number] 1955 Unknown [id number] 2.16. [id number] 1955 Unknown [id number] 2.16. [id number] 1955 Unknown [id number] 2.16. [id number] Private Health Insurance [id number] Unknown Social History Date Type Detail Facility Start: 02-04-2022 End: 02-04-2022 Assertion Unknown if ever smoked [facility] Work Phone: History of Present illness Narrative 10-13-2022 Note Date & Type Note Facility 10-13-2022 History of Present illness Narrative Masha is a pleasant 67-year-old female here for 3-month follow-up bilateral knee pain. Good relief still to R knee after Durolane 3 month ago. L knee got about 1 month sx control and sx flared since. Meloxicam helps a little. Voltaren gel with no improvement. No new injuries.L knee sx were worse on L prior to injections. [facility] 300 Work Phone: History of Present illness Narrative 04-16-2022 Note Date & Type Note Facility 04-16-2022 History of Present illness Narrative Agree with CC as documented. Masha is a pleasant 67-year-old female presenting today for recheck of left knee pain. Patient did have back surgery a few months ago, she has resumed most activities. She is noticing that the left knee is beginning to flareup with light activity, including walking. There is no sensation of the knee giving out. She does use the hinged knee brace on as needed basis. Her right knee is asymptomatic at this time. Patient did get good relief from the last cortisone injection and is interested in pursuing another 1 at today's visit. [facility] 300 Work Phone: Evaluation note Note Date & Type Note Facility Evaluation note There may be informa tion available, but it has not been provided by the sender. [facility] Work Phone: History of Present illness Narrative Note Date & Type Note Facility History of Present illness Narrative Advil dual actiono - no reliefVoltaren prn with short term improvementNo instability or mechanical sx. [facility] 300 Work Phone: Instructions Note Date & Type Note Facility Instructions No information available. [facility] [address] [facility] [place] [facility] Work Phone: Summary Purpose Family History No Family History Records FoundNo Family History Records FoundNo Family History Records FoundThere may be information available, but it has not been provided by the sender.No Family History Records FoundNo Family History Records FoundNo Family History Records Found Advance Directives No Advanced Directives Records FoundNo Advanced Directives Records FoundNo Advanced Directives Records FoundThere may be information available, but it has not been provided by the sender.No Advanced Directives Records FoundNo Advanced Directives Records FoundNo Advanced Directives Records Found Chief Complaint Chief Complaint Description Start Date lower back post Explore and Remove Hardware L5-S1 Revision laminectomy facetectomy foraminotomies L3-L5 Posterolateral Fusion L4-L5 on 02/15/2021 Preliminary chief co mplaint data, not yet signed by the author as of Additional Source Comments INFORMATION SOURCE (unrecogn ized section and content) DATE CREATED AUTHOR AUTHOR'S ORGANIZ ATION 09/24/2018 [facility] DATE CREATED AUTHOR AUTHOR'S ORGANIZ ATION 03/13/2020 [facility] DATE CREATED AUTHOR AUTHOR'S ORGANIZ ATION 02/18/2022 [facility] DATE CREATED AUTHOR AUTHOR'S ORGANIZ ATION 01/14/2023 [facility] DATE CREATED AUTHOR AUTHOR'S ORGANIZ ATION 01/14/2023 [employer] Reason for Visit (unrecogniz ed section and content) FOR RECORDS PERTAINING TO PATIENTS WHO ARE OR HAVE BEEN ENROLLED IN A CHEMICAL DEPENDENCY/SUBSTANCEABUSE PROGRAM, SOME INFORMATION MAY BE OMITTED. This clinical summary was aggregated from multiple sources. Caution should be exercised in using it in the provision of clinical care. This summary normalizes information from multiple sources, and as a consequence, information in this document may materially change the coding, format and clinical context of patient data. In addition, data may be omitted in some cases. CLINICAL DECISIONS SHOULD BE BASED ON THE PRIMARY CLINICAL RECORDS. [facility] provides no warranty or guarantee of the accuracy or completeness of information in this document.
== END | disposition home or self-care (01) ==
PROVIDERS: PCP Internal Medicine; Referring Provider Orthopaedic Surgery; Visit Provider Orthopaedic Surgery
DX: M79.662 Pain in left lower leg (principal)
CPT/HCPCS: 93971

== ENCOUNTER → 2025-02-06 | Outpatient (CLI) | payer MEDICARE, SELFPAY ==
--- NOTE | 2025-02-06 11:20 | RAD_ITS ---
PROCEDURE: PA and lateral chest radiographs, two views 02/06/2025 REASON FOR EXAM: Pre heart catheterization. Chronic chest pain TECHNIQUE: PA and lateral views of the chest were obtained. FINDINGS: The bones are osteopenic with degenerative changes in the spine. There is exaggeration of the normal thoracic kyphosis on the lateral view. No focal airspace consolidation, pneumothorax, or pleural effusion. The thoracic aorta is tortuous. There may be a retrocardiac hiatal hernia. RAD/Chest PA and Lateral IMPRESSION: No acute cardiopulmonary process is demonstrated. Tortuous thoracic aorta. Possible retrocardiac hiatal hernia. This could be better evaluated with follo w-up chest CT. Reading Location: [facility]
[2025-02-06 12:22] LABS: Absolute Lymphocyte Count 1.31 X10^3/uL (0.83-4.51); Absolute Neutrophil Count 3.2 X10^3/uL (2.0-7.7); Basophil# 0.07 X10^3/uL; Basophil% 1.4 % (0-1); Eosinophil# 0.14 X10^3/uL; Eosinophils% 2.7 % (0-5); Hematocrit 35.1 % (37-47); Hemoglobin 11.1 g/dL (12.0-15.0); Lymphocyte # 1.31 X10^3/ul (0.83-4.51); Lymphocyte % 25.3 % (19-41); Mean Corp Hgb Conc 31.6 g/dL (32-36); Mean Corpuscular Hgb 26.8 pg (27.0-32.0); Mean Corpuscular Volume 84.8 fL (81-99); Mean Platelet Vol. 10.4 fl (6.2-12.0); Monocyte# 0.46 X10^3/uL; Monocyte% 8.9 % (0-10); NRBC Flagged by Analyzer 0 % (0-5); Neutrophil # 3.18 X10^3/uL (2.7-7.7); Neutrophil % 61.5 % (47-70); Platelet Count 265 K/mm3 (150-450); RBC Distribution Width CV 15.8 % (11.6-14.6); RBC Distribution Width SD 48.7 fl (35.1-43.9); Red Blood Count 4.14 M/mm3 (4.2-5.4); White Blood Count 5.2 K/mm3 (4.4-11.0)
[2025-02-06 12:24] LABS: Prothrombin Time (Protime)PT. 12.8 SECONDS (11.7-14.9)
[2025-02-06 12:56] LABS: Anion Gap 8 (5-15); BUN 14 mg/dL (4-19); BUN/Creat Ratio 15.8 RATIO (10-20); Calcium,Total 9.1 mg/dL (7.6-11.0); Carbon Dioxide 26.2 mmol/L (21.0-32.0); Chloride 103 mmol/L (98-108); Creatinine, Serum 0.91 mg/dL (0.70-1.20); EST Glomerular Filtration Rate 69 (>60); Glucose 92 mg/dL (70-99); Potassium 4.4 mmol/L (3.3-5.1); Sodium Level 137 mmol/L (133-145)
== END | disposition home or self-care (01) ==
LOC: LAB 11:06
PROVIDERS: PCP Internal Medicine; Referring Provider Internal Medicine Cardiovascular Disease; Visit Provider Internal Medicine Cardiovascular Disease
DX: I20.9 Angina pectoris, unspecified (principal)
CPT/HCPCS: 36415; 71046; 80048; 85025; 85610

== ENCOUNTER 2025-02-18 07:03 | Day surgery (SDC) | payer MEDICARE, SELFPAY ==
[2025-02-17 09:00] VITALS: BMI 33.4
--- NOTE | 2025-02-18 13:16 | CL.D_ITS ---
Patient Name: NADYA BLAKE Study Date: 02/18/2025 Performing: Shawn Daily MD Ht: 60 inches 152.4 cm : 1955 Wt: 170.99 lbs 77.56 kg Age: 69 Gender: female BSA: 1.75 PROCEDURE(S) PERFORMED DC01-(08271)LHC/COR/LV CLINICAL PROFILE AND INDICATIONS Heart Failure: None Stress/Imaging Stress/Image Study Performed: No CAD Presentations: Stable angina. CONCLUSIONS Normal coronary arteries Normal LV size, wall motion,and systolic function RECOMMENDATIONS Medical therapy DESCRIPTION OF PROCEDURE The patient arrived to the procedure lab. The risks and benefits of the procedure as well as a full description of our services here and current unavailability of surgical backup were fully explained to the patient and/or their significant other prior to the catheterization. The Timeout was completed, verifying the correct patient and procedure. The patient's procedural site was prepped and draped in the usual fashion. Local anesthetic was given subcutaneously to right radial region with Lidocaine 2%. Using a modified Seldinger technique, arterial access was obtained via the right radial artery, a 6Fr sheath was inserted. Right Coronary Artery selective angiography was then performed in multiple views using a 5 Fr. 4.0 [place] catheter. Left Coronary Artery selective angiography was performed in multiple views using a 5 Fr. JL3.5 catheter. Left Ventriculography was performed in FINNEY projection using a 5 Fr. Pigtail catheter. LV to AO pullback pressures were then recorded.The arterial sheath was pulled and a TR Band was applied for hemostasis CORONARY ANGIOGRAPHY DOMINANCE: Right Dominant LEFT HEART ASSESSMENT Left Ventricular Ejection Fraction: by LV Gram 65 % Normal LV wall motion Normal Left Ventricular systolic function Normal Left Ventricular systolic function LEFT MAIN: Angiographically normal LEFT ANTERIOR DESCENDING ARTERY: Angiographically normal CIRCUMFLEX ARTERY: Angiographically normal RIGHT CORONARY ARTERY: Angiographically normal COMPLICATIONS No Complications PROCEDURE MEDICATIONS Fentanyl 50 mcg IV Versed 1 mg IV Oxygen: 2 L/min via nasal cannula Heparin given IA 02/18/2025 08:03:28 Verapamil 2.5mg, Ntg 100mcgs, 3000 units of Heparin given IA 02/18/2025 08:03:28 IV Bolus: .9 NaCl 100 ml total 02/18/2025 08:24:40 SUMMARY OF HEMODYNAMIC DATA Time AIR REST ECG 07:24:42 AO 115/71 (91) SA 08:06:11 LV 133/17, 28 08:20:11 LV 135/17, 29 08:20:19 LV 125/16, 28 08:21:06 LVp 124/20, 29 08:21:13 AOp 124/69 (95) 08:21:20 Signed By Shawn Daily MD On 02/24/2025 07:22:28 Signed By Shawn Daily MD On 02/18/2025 08:28:11 Shawn Daily MD
== END 2025-02-18 10:00 | disposition home or self-care (01) ==
PROVIDERS: PCP Internal Medicine; Referring Provider Internal Medicine Cardiovascular Disease; Visit Provider Internal Medicine Cardiovascular Disease
DX: R07.89 Other chest pain (principal); I20.9 Angina pectoris, unspecified; I10 Essential (primary) hypertension; E78.00 Pure hypercholesterolemia, unspecified; Z79.82 Long term (current) use of aspirin; Z79.899 Other long term (current) drug therapy; Z82.49 Family history of ischemic heart disease and other diseases of the circulatory system
CPT/HCPCS: 93458; 99152; 99153; Q9967; C1769; C1894

== ENCOUNTER → 2025-03-06 | Outpatient (CLI) | payer MEDICARE, SELFPAY ==
[2025-03-06 17:09] LABS: ALB/GLOB Ratio 1.5 RATIO (0.9-2.4); AST(SGOT) 22 U/L (<=31); Alanine Aminotransfer ALT/SGPT 12 U/L (<=34); Albumin, Serum 4.1 g/dL (3.4-4.8); Alkaline Phosphatase 75 U/L (35-104); Anion Gap 11 (5-15); BUN 13 mg/dL (4-19); BUN/Creat Ratio 15.2 RATIO (10-20); Calcium,Total 9.2 mg/dL (7.6-11.0); Carbon Dioxide 25.8 mmol/L (21.0-32.0); Chloride 104 mmol/L (98-108); Cholesterol 270 mg/dL (<=200); Creatinine, Serum 0.84 mg/dL (0.70-1.20); EST Glomerular Filtration Rate 76 (>60); Globulin 2.8 g/dL (2.2-4.2); Glucose 86 mg/dL (70-99); High Density Lipoprotein 63 mg/dL; Low Density Lipoprotein Calc. 182 mg/dL; Potassium 4.2 mmol/L (3.3-5.1); Protein, Total 6.9 g/dL (5.9-8.4); Sodium Level 141 mmol/L (133-145); Total Bilirubin 0.33 mg/dL (0.00-1.30); Triglycerides 122 mg/dL; Very Low Density Lipoprotein 24 mg/dL (5-40); cholesterol:hdl ratio screen 4.27
[2025-03-06 17:12] LABS: Free T3 2.5 pg/mL (2.18-3.98); Vitamin D,25 Hydroxy 26.7 ng/mL (30-100)
[2025-03-06 17:19] LABS: Absolute Lymphocyte Count 1.41 X10^3/uL (0.83-4.51); Absolute Neutrophil Count 2.9 X10^3/uL (2.0-7.7); Basophil# 0.08 X10^3/uL; Basophil% 1.6 % (0-1); Eosinophil# 0.21 X10^3/uL; Eosinophils% 4.2 % (0-5); Hematocrit 35.5 % (37-47); Hemoglobin 11.2 g/dL (12.0-15.0); Lymphocyte # 1.41 X10^3/ul (0.83-4.51); Lymphocyte % 28.4 % (19-41); Mean Corp Hgb Conc 31.5 g/dL (32-36); Mean Corpuscular Hgb 26.5 pg (27.0-32.0); Mean Corpuscular Volume 83.9 fL (81-99); Mean Platelet Vol. 10.6 fl (6.2-12.0); Monocyte# 0.35 X10^3/uL; NRBC Flagged by Analyzer 0 % (0-5); Neutrophil # 2.91 X10^3/uL (2.7-7.7); Neutrophil % 58.6 % (47-70); Platelet Count 310 K/mm3 (150-450); RBC Distribution Width CV 15.9 % (11.6-14.6); RBC Distribution Width SD 49.2 fl (35.1-43.9); Red Blood Count 4.23 M/mm3 (4.2-5.4)
[2025-03-11 08:08] LABS: ANTINUCLEAR ANTIBODIES DIRECT Positive (Negative); Anti-Centromere B Ab <0.2 AI (0.0-0.9); Anti-Chromatin <0.2 AI (0.0-0.9); Anti-Jo <0.2 AI (0.0-0.9); Anti-Scleroderma-70 AB <0.2 AI (0.0-0.9); Anti-dsDNA Ab <1 IU/mL (0-9); RNP Ab 1.2 AI (0.0-0.9); SJOGREN'S Anti-SS-A test < 0.2 AI (0.0-0.9); SJOGREN'S Anti-SS-B test < 0.2 AI (0.0-0.9); Smith Ab <0.2 AI (0.0-0.9)
== END | disposition home or self-care (01) ==
LOC: LAB 13:57
PROVIDERS: PCP Internal Medicine; Referring Provider Internal Medicine; Visit Provider Internal Medicine
DX: I10 Essential (primary) hypertension (principal); E03.9 Hypothyroidism, unspecified; E55.9 Vitamin D deficiency, unspecified; E78.5 Hyperlipidemia, unspecified; K58.9 Irritable bowel syndrome, unspecified; R68.2 Dry mouth, unspecified; Z13.220 Encounter for screening for lipoid disorders
CPT/HCPCS: 36415; 80053; 80061; 82306; 84439; 84443; 84481; 85025; 86038; 86225; 86235

== ENCOUNTER 2025-09-01 08:04 | Day surgery (SDC) | payer MEDICARE, SELFPAY ==
--- NOTE | 2025-08-27 16:36 | PAT.ANESEVAL ---
Pre-Assessment Diagnosis/Proposed Procedure Planned Operative Procedure(s): (L) Injection, Hip Anesthesia History Anesthesia History - supply analyst: Anesthesia History - supply analyst Hx Hospitalization No 08/27/25 11:32 Any Problems With Anesthesia No 08/27/25 11:32 Cholinesterase deficiency No 08/27/25 11:32 You/Your Family Experience No 08/27/25 11:32 fever (hyperthermia) with Relationship Recent Exposure to Contagious No 08/28/20 12:00 Disease Does patient have nerve No 08/27/25 11:32 stimulator Patient instructed to have device shut off --Does patient have Pacemaker or ICD? When Was Last Pacemaker Check QUESTION #4 FULL TEXT: You/Your Family Experience fever (hyperthermia) with Anesthesia Last Oral Intake Last Oral intake: Last Oral Intake NPO since Meds taken in AM with sips of water? Meds patient instructed to take am of surgery PONV PONV - supply analyst: PONV - supply analyst Female Yes 08/27/25 11:32 HX of Motion Sickness No 08/27/25 11:32 HX of N/V After Surgery No 08/27/25 11:32 Non-Smoker Yes 08/27/25 11:32 Duration of Surgery greater No 08/27/25 11:32 than 60 minutes Number of Risk Factors 2 08/27/25 11:32 PONV Score Moderate Risk 08/27/25 11:32 Height & Weight Height & Weight: Anesthesia: Height & Weight Height 5 ft 02/18/25 07:23 Respiratory Assessment Respiratory Assessment - supply analyst: Respiratory Tract Infection Hx - supply analyst Hx Respiratory Tract Infection No 08/27/25 11:32 STOP Sleep Apnea STOP Sleep Apnea - supply analyst: STOP Sleep Apnea - supply analyst Hx Hypertension Yes: CONTROLLED WITH MED 08/27/25 11:32 Hx Sleep Apnea No 08/27/25 11:32 CPAP BIPAP Do you snore loudly (louder No 08/27/25 11:32 than talking or can be heard Do you often feel tired/ No 08/27/25 11:32 fatigued/ sleepy during daytime? Has anyone observed you stop No 08/27/25 11:32 breathing during sleep? STOP Results Negative 08/27/25 11:32 QUESTION #5 FULL TEXT : Do you snore loudly (louder than talking or can be heard through closed doors)? 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 Specify any problems Hx of Preganancy in last 3 N/A 08/27/25 11:32 Months Nurse Filling Out Transfusion [facility]BU[facility] 08/27/25 11:32 & Questions: Date: 08/27/25 08/27/25 11:32 Time: 11:32 08/27/25 11:32 Patient unable to answer at this time (ie. confused, unrespo /Reproduction History /Reproductive History - supply analyst: /Reproductive Hx- supply analyst Hx Now No 08/27/25 11:32 Gestational Age (in weeks): EDC: Hx Hx Para Hx Section SAB No 08/27/25 11:32 Does the father of the baby or his family experience fever w Father of the baby Malignant Hypertension history comment [facility] Medical History (Updated 08/27/25 @ 11:37 by Ricarda Ward) History of stress test Wears glasses Depression Thyroid disease Arthritis High cholesterol History of IBS Non-smoker Cardiology follow-up encounter History of CHF (congestive heart failure) Dry eyes Elevated antinuclear antibody (NAILA) level Angina pectoris Acute otitis media, right Back pain Limb weakness Difficulty balancing Shoulder pain Hemorrhoids Hypokalemia Vitamin D deficiency Hypothyroidism GERD (gastroesophageal reflux disease) Heart murmur IBS (irritable bowel syndrome) Hyperlipemia Hypertension Gout H/O emotional problems Cataracts, bilateral Seasonal allergies Anterolisthesis Home Medications Medication Instructions Recorded Last Taken Type calcium 600 mg-D3 800 unit-mag11 2 tab PO DAILY 05/13/19 Unknown History 50 qb-gbhg-utxevr-veronica-s.borat tablet (Caltrate 600-D Plus Minerals) ferrous sulfate 325 mg (65 mg 325 mg PO DAILY@0800 06/17/20 Unknown History iron) tablet multivitamin 1 ea PO DAILY 06/17/20 Unknown History oxycodone-acetaminophen 5 mg-325 1 tab PO Q8H PRN pain 02/02/23 Unknown History mg tablet (Percocet) handicap placard #1 ea 08/17/23 Unknown Rx aspirin 81 mg tablet,delayed 81 mg PO QDAY #30 tabs 02/06/25 02/18/25 Rx release (Adult Aspirin Regimen) citalopram 40 mg tablet 40 mg PO DAILY #90 tabs 02/12/25 Unknown Rx doxepin 25 mg capsule 25 mg PO QHS PRN Sleep #90 caps 02/12/25 Unknown Rx estradiol 1 mg tablet 0.5 mg (1/2 x 1 mg) PO DAILY #45 02/12/25 Unknown Rx tabs gabapentin 300 mg capsule 300 mg PO TID #270 caps 02/12/25 Unknown Rx levothyroxine 25 mcg tablet 25 mcg PO DAILY #90 tabs 02/12/25 Unknown Rx linaclotide 145 mcg capsule 145 mcg PO DAILY PRN constipation 02/12/25 Unknown Rx (Linzess) #90 caps lisinopril 20 1 tab PO DAILY #90 tabs 02/12/25 Unknown Rx mg-hydrochlorothiazide 12.5 mg tablet meloxicam 15 mg tablet 15 mg PO DAILY Pain Score 1-07/2502/12/25 Unknown Rx #90 tabs omeprazole 40 mg capsule,delayed 40 mg PO DAILY #90 caps 02/12/25 Unknown Rx release potassium chloride 10 mEq 20 meq (2 x 10 mEq) PO DAILY #180 02/12/25 Unknown Rx tablet,extended release(part/cryst) tabs ropinirole 3 mg tablet 3 mg PO QHS #90 tabs 02/12/25 Unknown Rx Allergy/AdvReac Type Severity Reaction Status Date / Time No Known Allergies Allergy Verified 08/27/25 11:29 Family History Mother Arthritis Hypertension Father CVA (cerebral vascular accident) Myocardial infarction Hypertension Depression Parkinsons Aunt Breast cancer Other Diabetes Surgical History History of cardiac catheterization History of tonsillectomy History of knee replacement procedure of left knee Status post total left knee replacement Hammertoe of left foot History of back surgery History of colonoscopy History of laminectomy History of shoulder surgery History of partial hysterectomy History of cholecystectomy History of bunionectomy History of orthopedic surgery Social History Smoking Status: Never smoker alcohol intake: current alcohol intake frequency: holidays/special occasions only substance use type: does not use what type of physical activity do you participate in: walking Audit: Pertinent Findings Pertinent Findings EKG Perinent findings: EKG done in Dr. Wilson's office 01/30/2025 showed a normal sinus rhythm with some nonspecific T wave changes anteriorly. Heart catheterization pertinent findings: CORONARY ANGIOGRAPHY DOMINANCE: Right Dominant LEFT HEART ASSESSMENT Left Ventricular Ejection Fraction: by LV Gram 65 % Normal LV wall motion Normal Left Ventricular systolic function Normal Left Ventricular systolic function LEFT MAIN: Angiographically normal LEFT ANTERIOR DESCENDING ARTERY: Angiographically normal CIRCUMFLEX ARTERY: Angiographically normal RIGHT CORONARY ARTERY: Angiographically normal Recommendation Anesthesia Recommendation Anesthesia recommendation: OPTIMIZED for anesthesia (No echo found, but do not think she needs one for this procedure)
[2025-09-01] VITALS (7 sets, daily range): BP systolic 100–121; BP diastolic 42–70; PULSE 61–68; RESP 16; TEMP 36.4–36.9; O2SAT 95–100; BMI 34.4
--- NOTE | 2025-09-01 08:40 | RAD_ITS ---
PROCEDURE: FLUORO GUIDED NEEDLE PLACEMENT; O.R. FLUORO FOR C-ARM 09/01/2025 REASON FOR EXAM: HIP INJECTION LEFT TECHNIQUE: Procedure Code: RADFGN; RADORFL_C_ARM Modality: DX Procedure: FLUORO GUIDED NEEDLE PLACEMENT; O.R. FLUORO FOR C-ARM Fluoroscopy time: 5.8 seconds. Dose: 2.17 mGy. RAD/Fluoro Guided Needle Placement IMPRESSION: Intraoperative fluoroscopy was performed for left hip injection. 2 fluoroscopic images were also obtained. Reading Location: [place] [id number]
--- NOTE | 2025-09-01 08:40 | RAD_ITS ---
PROCEDURE: FLUORO GUIDED NEEDLE PLACEMENT; O.R. FLUORO FOR C-ARM 09/01/2025 REASON FOR EXAM: HIP INJECTION LEFT TECHNIQUE: Procedure Code: RADFGN; RADORFL_C_ARM Modality: DX Procedure: FLUORO GUIDED NEEDLE PLACEMENT; O.R. FLUORO FOR C-ARM Fluoroscopy time: 5.8 seconds. Dose: 2.17 mGy. RAD/O.R. Fluoro for C-Arm IMPRESSION: Intraoperative fluoroscopy was performed for left hip injection. 2 fluoroscopic images were also obtained. Reading Location: [place] [address]
[2025-09-01] MEDS: Lactated Ringers 1,000 ML 15 ML IV (08:43)
--- NOTE | 2025-09-01 08:56 | PCM.PRE.AN2 ---
ASA Classification* ASA Classification ASA Classification: 3 Assessment & Plan Anesthesia* Anesthesia Assessment Anesthesia Assessment: Discussed sedation and/or anesthesia options, risks, benefits, and alternatives with patient/parents/legal guardian/POA. Questions invited. The patient/parents/legal guardian/POA seems to understand and agrees to proceed with anesthesia plan. Reviewed the physical assessment, medical history, allergy history and patient home medications list prior to surgery/procedure/anesthetic and documented any changes. Performed airway and anesthesia risk assessments. Anesthesia Type Anesthesia Type: MAC History Source History Obtained from:: Patient and Chart Anesthesia Focused Assessment* Temperature: 97.6 F Pulse Rate: 64 Blood Pressure: 121/70 Respiratory Rate: 16 Pulse Ox: 100 Oxygen Delivery Method: Room Air Airway Assessment Mouth opens: >3 cm Mallampati Score: IV Teeth Condition: Intact Neck Range of motion (ROM): Limited ROM (Severe Restriction but we do not) Labs Anesthesia Preop lab: CBC WBC, (4.4-11.0) 5.0 K/mm3 03/06/25, 14:16 RBC, (4.2-5.4) 4.23 M/mm3 03/06/25, 14:16 Hgb, (12.0-15.0) 11.2 g/dL L 03/06/25, 14:16 Hct, (37-47) 35.5 % L 03/06/25, 14:16 Plt Count, (150-450) 310 K/mm3 03/06/25, 14:16 CHEMISTRY Potassium, (3.3-5.1) 4.2 mmol/L 03/06/25, 14:16 Sodium, (133-145) 141 mmol/L 03/06/25, 14:16 BUN, (4-19) 13 mg/dL 03/06/25, 14:16 Creatinine, (0.70-1.20) 0.84 mg/dL 03/06/25, 14:16 Glucose, (70-99) 86 mg/dL 03/06/25, 14:16 TSH, (0.300-4.200) 1.770 uIU/mL 03/06/25, 14:16 COAG PT, (11.7-14.9) 12.8 SECONDS 02/06/25, 11:16 Pre-Assessment Diagnosis/Proposed Procedure Planned Operative Procedure(s): (L) Injection, Hip Anesthesia History Anesthesia History - bomb technician: Anesthesia History - bomb technician Hx Hospitalization No 08/27/25 11:32 Any Problems With Anesthesia No 08/27/25 11:32 Cholinesterase deficiency No 08/27/25 11:32 You/Your Family Experience No 08/27/25 11:32 fever (hyperthermia) with Relationship Recent Exposure to Contagious No 09/01/25 08:41 Disease Does patient have nerve No 08/27/25 11:32 stimulator Patient instructed to have device shut off --Does patient have Pacemaker No 09/01/25 08:41 or ICD? When Was Last Pacemaker Check QUESTION #4 FULL TEXT: You/Your Family Experience fever (hyperthermia) with Anesthesia Last Oral Intake Last Oral intake: Last Oral Intake NPO since 0000 Meds taken in AM with sips of water? Meds patient instructed to take am of surgery Any additional information?: Yes Meds taken in AM with sips of water?: Yes PONV PONV - bomb technician: PONV - bomb technician Female Yes 08/27/25 11:32 HX of Motion Sickness No 08/27/25 11:32 HX of N/V After Surgery No 08/27/25 11:32 Non-Smoker Yes 08/27/25 11:32 Duration of Surgery greater No 08/27/25 11:32 than 60 minutes Number of Risk Factors 2 08/27/25 11:32 PONV Score Moderate Risk 08/27/25 11:32 Height & Weight Height & Weight: Anesthesia: Height & Weight Height 5 ft 09/01/25 08:41 Weight: 80 kg 09/01/25 08:41 Body Mass Index (BMI) 34.4 09/01/25 08:41 Respiratory Assessment Respiratory Assessment - bomb technician: Respiratory Tract Infection Hx - bomb technician Hx Respiratory Tract Infection No 08/27/25 11:32 STOP Sleep Apnea STOP Sleep Apnea - bomb technician: STOP Sleep Apnea - bomb technician Hx Hypertension Yes: CONTROLLED WITH MED 08/27/25 11:32 Hx Sleep Apnea No 08/27/25 11:32 CPAP BIPAP Do you snore loudly (louder No 08/27/25 11:32 than talking or can be heard Do you often feel tired/ No 08/27/25 11:32 fatigued/ sleepy during daytime? Has anyone observed you stop No 08/27/25 11:32 breathing during sleep? STOP Results Negative 08/27/25 11:32 QUESTION #5 FULL TEXT : Do you snore loudly (louder than talking or can be heard through closed doors)? 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 Specify any problems Hx of Preganancy in last 3 N/A 08/27/25 11:32 Months Nurse Filling Out Transfusion [facility] 08/27/25 11:32 & Questions: Date: 08/27/25 08/27/25 11:32 Time: 11:32 08/27/25 11:32 Patient unable to answer at this time (ie. confused, unrespo /Reproduction History /Reproductive History - bomb technician: /Reproductive Hx- bomb technician Hx Now No 08/27/25 11:32 Gestational Age (in weeks): EDC: Hx Hx Para Hx Section SAB No 08/27/25 11:32 Does the father of the baby or his family experience fever w Father of the baby Malignant Hypertension history comment Active Medications Active Medications: Current Medications Generic Name Dose Route Start Last Admin Trade Name Freq PRN Reason Stop Dose Admin Lactated Ringer's 1,000 mls @ 15 mls/hr 09/01/25 08:15 09/01/25 08:43 IV 15 mls/hr .Q48H FORD Administration PFSH Medical History History of stress test Wears glasses Depression Thyroid disease Arthritis High cholesterol History of IBS Non-smoker Cardiology follow-up encounter History of CHF (congestive heart failure) Dry eyes Elevated antinuclear antibody (NAILA) level Angina pectoris Acute otitis media, right Back pain Limb weakness Difficulty balancing Shoulder pain Hemorrhoids Hypokalemia Vitamin D deficiency Hypothyroidism GERD (gastroesophageal reflux disease) Heart murmur IBS (irritable bowel syndrome) Hyperlipemia Hypertension Gout H/O emotional problems Cataracts, bilateral Seasonal allergies Anterolisthesis Home Medications Medication Instructions Recorded Last Taken Type calcium 600 mg-D3 800 unit-mag11 2 tab PO DAILY 05/13/19 Unknown History 50 uz-kafv-amugpw-veronica-s.borat tablet (Caltrate 600-D Plus Minerals) ferrous sulfate 325 mg (65 mg 325 mg PO DAILY@0800 06/17/20 Unknown History iron) tablet multivitamin 1 ea PO DAILY 06/17/20 Unknown History oxycodone-acetaminophen 5 mg-325 1 tab PO Q8H PRN pain 02/02/23 Unknown History mg tablet (Percocet) handicap placard #1 ea 08/17/23 Unknown Rx aspirin 81 mg tablet,delayed 81 mg PO QDAY #30 tabs 02/06/25 08/31/25 Rx release (Adult Aspirin Regimen) citalopram 40 mg tablet 40 mg PO DAILY #90 tabs 02/12/25 09/01/25 Rx doxepin 25 mg capsule 25 mg PO QHS PRN Sleep #90 caps 02/12/25 Unknown Rx estradiol 1 mg tablet 0.5 mg (1/2 x 1 mg) PO DAILY #45 02/12/25 Unknown Rx tabs gabapentin 300 mg capsule 300 mg PO TID #270 caps 02/12/25 09/01/25 Rx levothyroxine 25 mcg tablet 25 mcg PO DAILY #90 tabs 02/12/25 09/01/25 Rx linaclotide 145 mcg capsule 145 mcg PO DAILY PRN constipation 02/12/25 Unknown Rx (Linzess) #90 caps lisinopril 20 1 tab PO DAILY #90 tabs 02/12/25 Unknown Rx mg-hydrochlorothiazide 12.5 mg tablet meloxicam 15 mg tablet 15 mg PO DAILY Pain Score 1-07/2502/12/25 Unknown Rx #90 tabs omeprazole 40 mg capsule,delayed 40 mg PO DAILY #90 caps 02/12/25 09/01/25 Rx release potassium chloride 10 mEq 20 meq (2 x 10 mEq) PO DAILY #180 02/12/25 Unknown Rx tablet,extended release(part/cryst) tabs ropinirole 3 mg tablet 3 mg PO QHS #90 tabs 02/12/25 Unknown Rx Allergy/AdvReac Type Severity Reaction Status Date / Time No Known Allergies Allergy Verified 09/01/25 08:39 Family History Mother Arthritis Hypertension Father CVA (cerebral vascular accident) Myocardial infarction Hypertension Depression Parkinsons Aunt Breast cancer Other Diabetes Surgical History History of cardiac catheterization History of tonsillectomy History of knee replacement procedure of left knee Status post total left knee replacement Hammertoe of left foot History of back surgery History of colonoscopy History of laminectomy History of shoulder surgery History of partial hysterectomy History of cholecystectomy History of bunionectomy History of orthopedic surgery Social History Smoking Status: Never smoker alcohol intake: current alcohol intake frequency: holidays/special occasions only substance use type: does not use what type of physical activity do you participate in: walking Review of Systems (Anesthesia) ROS Narrative System reviewed and no additional complaints, except as documented.
[2025-09-01] MEDS: Lidocaine 1% (5 ml sdv) 5 ML Vial (09:13)
--- NOTE | 2025-09-01 09:23 | PCM.POST.ANE ---
Anesthesia: Postop Eval I Current Vital Signs Temperature: 98 F Pulse Rate: 68 Blood Pressure: 101/61 Respiratory Rate: 16 Pulse Ox: 95 Assessment Airway patent: Yes Spontaneous unlabored respirations: Yes nausea: No Vomiting: No Anesthesia Complication: No Fluid Hydration Crystalloid volume administer (ml): 200 Total IV fluid infused: 200 Progress Note Anesthesia document: Postop Eval 1 completed: Yes
--- NOTE | 2025-09-01 09:42 | PCM.OPRPT ---
Operative Report (Standard) Operative Information Date of Procedure: 09/01/25 Pre-Operative Diagnosis: Osteoarthritis of the left hip Post-Operative Diagnosis: Osteoarthritis of the left hip Surgery/Procedure Performed: Left hip intra-articular steroid injection under fluoroscopic guidance health center manager: No Type of Anesthesia: Local MAC RN Documented Start/Stop Times: Operation Date: 09/01/25 09:40 Case Time Into Pre-Op 09/01/25 08:13 Anesthesia Start 09/01/25 09:07 Into Room 09/01/25 09:07 Procedure Start 09/01/25 09:11 Procedure End 09/01/25 09:15 Anesthesia End 09/01/25 09:17 Out of Room 09/01/25 09:17 Into Recovery 09/01/25 09:20 Out of Recovery 09/01/25 09:32 Into Phase II Recovery 09/01/25 09:33 Procedure Start Time: 09:42 Procedure Stop Time: 09:42 Select all DRAINS/GRAFTS/IMPLANTS that apply: None Estimated Blood Loss: 0 Specimen collected: No Description of surgery: ANESTHESIA: MAC. BLOOD LOSS: Minimal. COMPLICATIONS: None. DESCRIPTION OF PROCEDURE: History and physical of today was reviewed. Risks and benefits of the procedure were explained. The patient understood and agreed to proceed. Informed consent was obtained. IV inserted per routine protocol. The patient was taken to the operating room and placed in the supine position. The left hip area was prepped and draped in a sterile fashion using iodine x3. Under fluoroscopy guidance on AP view, the left hip joint was visualized. The skin and subcutaneous tissue was anesthetized with approximately 3 mL of 1% lidocaine using a 25-gauge regular needle approximately 3 cm cephalad to the left greater trochanter. Under direct visualization with fluoroscopy on an AP view, using a 22-gauge 5-inch spinal needle, the needle was advanced via the skin using the lateral approach. The tip of the needle was maneuvered and directed towards the superiormost aspect of the hip joint. Once the tip of the needle was at the vicinity of the joint, after negative aspiration for blood and positive aspiration of synovial fluid, a total of 1 mL of contrast was injected to confirm correct placement of the needle as well as halo spread around the hip joint. After repeated negative aspiration for blood and confirmation on AP as well as oblique view, a total of 10 mL of preservative-free 0.25% Marcaine with 80 mg of Depo-Medrol was injected easily. The needle was then removed intact. The patient experienced no sign or symptoms of intrathecal or intravascular injection. The patient experienced no paresthesia. The procedure was completed without any apparent difficulty or any complications. The patient appeared to tolerate it well. ASSESSMENT AND PLAN: This is a 70-year-old female with osteoarthritis of the left hip status post left hip intra-articular steroid injection under fluoroscopic guidance, patient will continue her current medications, patient will follow-up in approximately 2 weeks for reevaluation. Surgical Findings: 0 Complications Complications: No Admit VTE Documentation VTE Present on Admission: No VTE Mechan Device Prophylaxis: None VTE Pharm Prophylaxis ordered?: No
--- NOTE | 2025-09-01 10:20 | POSTOPAN2_ITS ---
Anesthesia Postop Eval I Sum Postop Eval Completion status Anesthesia document: Postop Eval 1 completed: Yes Anesthesia Postop Eval I Summary Anesthesia Postop Eval I Summary: Anesthesia Postop Eval I: Assessment Summary Airway patent Yes 09/01/25 09:23 HEALTH ANALYTICS CONSULTANT.[email or web address] Spontaneous unlabored Yes 09/01/25 09:23 HEALTH ANALYTICS CONSULTANT.TNES respirations Mental status nausea No 09/01/25 09:23 HEALTH ANALYTICS CONSULTANT.TNES Vomiting No 09/01/25 09:23 HEALTH ANALYTICS CONSULTANT.TNES Anesthesia Postop Eval I: Fluid Summary Crystalloid volume administer 200 09/01/25 09:23 HEALTH ANALYTICS CONSULTANT.TNES (ml) Colloids volume administered ( ml) Blood Product volume administered (ml) Total IV fluid infused 200 09/01/25 09:23 HEALTH ANALYTICS CONSULTANT.TNES Anesthesia Postop Eval I: Summary Notes Anesthesia Complication No 09/01/25 09:23 HEALTH ANALYTICS CONSULTANT.TNES Anesthesia Complication Comment: Post-operative progress note Anesthesia: Postop Eval II Evaluation Mental status: Awake and Calm Pain Level: 0 nausea: No Vomiting: No
--- NOTE | 2025-09-01 10:20 | PCM.POSTANE2 ---
Anesthesia Postop Eval I Sum Postop Eval Completion status Anesthesia document: Postop Eval 1 completed: Yes Anesthesia Postop Eval I Summary Anesthesia Postop Eval I Summary: Anesthesia Postop Eval I: Assessment Summary Airway patent Yes 09/01/25 09:23 WEIGHT AND BALANCE CONTROL AGENT.TNES Spontaneous unlabored Yes 09/01/25 09:23 WEIGHT AND BALANCE CONTROL AGENT.TNES respirations Mental status nausea No 09/01/25 09:23 WEIGHT AND BALANCE CONTROL AGENT.TNES Vomiting No 09/01/25 09:23 WEIGHT AND BALANCE CONTROL AGENT.TNES Anesthesia Postop Eval I: Fluid Summary Crystalloid volume administer 200 09/01/25 09:23 WEIGHT AND BALANCE CONTROL AGENT.TNES (ml) Colloids volume administered ( ml) Blood Product volume administered (ml) Total IV fluid infused 200 09/01/25 09:23 WEIGHT AND BALANCE CONTROL AGENT.TNES Anesthesia Postop Eval I: Summary Notes Anesthesia Complication No 09/01/25 09:23 WEIGHT AND BALANCE CONTROL AGENT.TNES Anesthesia Complication Comment: Post-operative progress note Anesthesia: Postop Eval II Evaluation Mental status: Awake and Calm Pain Level: 0 nausea: No Vomiting: No
== END 2025-09-01 09:57 | disposition home or self-care (01) ==
LOC: SDC 08:05 → AC 08:24
PROVIDERS: PCP Internal Medicine; Referring Provider Anesthesiology Pain Medicine; Visit Provider Anesthesiology Pain Medicine
DX: M16.12 Unilateral primary osteoarthritis, left hip (principal); Z79.82 Long term (current) use of aspirin
CPT/HCPCS: 20610; 01120; 76000; 77002